=== PATIENT | female | born 1965 | race Caucasian/White ===

== ENCOUNTER → 2020-06-08 15:49 | Outpatient (CLI) | payer BC, SELFPAY ==
--- NOTE | ~2020-06-08 | US_ITS ---
EXAMINATION: US thyroid DATE: 06/08/2020 16:12 INDICATION: Nontoxic single thyroid nodule. TECHNIQUE: Multiple ultrasound images of the thyroid were obtained. COMPARISON: None. FINDINGS: The right thyroid lobe measures 5.5 x 3.0 x 2.3 cm. The left thyroid lobe measures 6.7 x 2.0 x 2.2 c m. The thyroid is diffusely hypoechoic with heterogeneous echogenicity. No discrete nodule. Vascular ity is normal. IMPRESSION: 1. Heterogeneous thyroid, likely chronic lymphocytic (Jessica) thyroiditis. Reviewed, dictated and finalized at location A.
== END ==
PROVIDERS: Visit Provider Internal Medicine Endocrinology, Diabetes & Metabolism
DX: E04.1 Nontoxic single thyroid nodule (principal)
CPT/HCPCS: 76536

== ENCOUNTER 2020-07-16 08:20 | Outpatient (CLI) | payer BC, SELFPAY ==
--- NOTE | ~2020-07-16 | US_ITS ---
EXAMINATION: US retroperitoneal duplex ltd DATE: 07/16/2020 10:25 INDICATION: Essential hypertension TECHNIQUE: Multiple grayscale, color Doppler, and pulsed Doppler images of the kidneys and renal antonino arti were obtained. COMPARISON: None. FINDINGS: The aorta peak systolic velocity is 43 cm/s. The right renal artery peak systolic velocity is 62 cm/s in the proximal segment, 74 cm/s in the mid segment, and 114 cm/s in the distal segment. The left re nal artery peak systolic velocity is 82 cm/s in the proximal segment, 69 cm/s in the mid segment, and 64 cm/s in the distal segment. IMPRESSION: 1. No Doppler evidence of renal artery stenosis. Reviewed, dictated and finalized at location A.
== END 2020-07-16 08:21 | disposition home or self-care (01) ==
PROVIDERS: PCP Family Medicine; Visit Provider Internal Medicine Endocrinology, Diabetes & Metabolism
DX: I10 Essential (primary) hypertension (principal)
CPT/HCPCS: 93976

== ENCOUNTER 2021-03-06 11:38 | Emergency (ER) | payer BC, SELFPAY ==
--- NOTE | ~2021-03-06 | XR_ITS ---
EXAMINATION: 1. XR forearm LT 2V 2. XR elbow LT min 3V DATE: 03/06/2021 12:54 INDICATION: Left forearm and elbow injury. TECHNIQUE: 2 views of left forearm on 3 radiographs and 4 views of left elbow were obtained. COMPARISON: None. FINDINGS: LEFT ELBOW: There is a comminuted fracture of lateral aspect of distal humerus. The main distal fract ure fragment involving the capitellum demonstrates anterior and proximal displacement and rotation an d is no longer normally aligned with the radial head. There is mild elbow joint osteoarthritis. There is an elbow joint effusion. LEFT FOREARM: Again seen is the comminuted fracture of distal humerus. There is mild osteoarthritis o f first carpometacarpal joint. IMPRESSION: 1. Comminuted fracture of distal humerus. 2. Elbow joint effusion. Reviewed, dictated and finalized at location A. IMPRESSION: 1. Comminuted fracture of distal humerus. 2. Elbow joint effusion.
[2021-03-06 11:57] VITALS: BP 141/77; PULSE 62; RESP 18; TEMP 36.5; O2SAT 97
[2021-03-06] MEDS: HYDROmorphone HCL INJ (*CRX) 1 MG/ML SYR IV PUSH (12:26)
--- NOTE | 2021-03-06 13:15 | ED.UPPEXIN ---
HPI - Extremity Injury (Upper) General Chief Complaint: Extremity Injury, Upper Stated Complaint: left arm pain Time Seen by Provider: 03/06/21 12:17 Source: patient Mode of arrival: ambulatory Limitations: no limitations History of Present Illness HPI narrative: Patient is a 55-year-old female complaining of left upper extremity pain, left elbow and forearm, after she tripped and fell at a parking garage prior to arrival. Patient states her pain is a 10 out of 10, dull, aching, nonradiating. Patient denies any head, neck, chest, back, hip or any other extremity pain/injury. Patient was able to stand up and ambulate after the fall. Related Data Home Medications Medication Instructions Recorded Confirmed levothyroxine 150 mcg tablet 150 mcg PO DAILY 11/04/19 01/31/21 Allergies Allergy/AdvReac Type Severity Reaction Status Date / Time No Known Allergies Allergy Mild Verified 01/31/21 13:17 Review of Systems Review of Systems: All systems reviewed & are unremarkable except as noted in HPI and below Constitutional: Constitutional: Denies body ache(s), Denies chills, Denies excessive sweating, Denies fatigue, Denies fever(s), Denies headache(s), Denies lethargy, Denies malaise, Denies weakness and Denies weight loss Eyes: Eyes: Denies blurry vision, Denies change in vision and Denies loss of vision ENT: Denies dizziness, Denies ear discharge, Denies headache(s), Denies lip swelling, Denies epistaxis, Denies nasal congestion, Denies neck pain, Denies throat swelling and Denies tongue swelling Cardiovascular: Cardiovascular: Denies chest pain, Denies chest pain at rest, Denies chest pain with activity, Denies diaphoresis, Denies rapid heart rate, Denies edema, Denies irregular heart rhythm, Denies lightheadedness, Denies palpitations, Denies dyspnea and Denies dyspnea on exertion Respiratory: Respiratory: Denies chest congestion, Denies cough, Denies hemoptysis, Denies dyspnea and Denies dyspnea on exertion Gastrointestinal: Gastrointestinal: Denies abdominal pain, Denies melena, Denies hematochezia, Denies diarrhea, Denies nausea, Denies vomiting and Denies hematemesis Musculoskeletal: Musculoskeletal: Denies abnormal gait, Denies neck pain and Denies numbness Neurologic: Denies Abnormal speech present, Denies abnormal gait, Denies confusion, Denies dizziness, Denies headache(s), Denies focal weakness, Denies loss of vision, Denies numbness, Denies Other visual disturbances, Denies Sensory deficit (Neuro) and Denies weakness Psychiatric: Psychiatric: Denies confusion, Denies depression, Denies auditory hallucinations, Denies homicidal ideation and Denies suicidal ideation Endocrine: Endocrine: Denies cold intolerance, Denies excessive sweating, Denies fatigue, Denies heat intolerance and Denies palpitations Hematologic/Lymphatic: Hematologic/Lymphatic: Denies easy bleeding and Denies easy bruising Allergic/Immunologic: Allergic/Immunologic: Denies lip swelling, Denies throat swelling and Denies tongue swelling PMFSH Past Medical History Medical History (Updated 03/06/21 @ 14:36 by Mikie Schneider MD) Anxiety Essential hypertension Hypothyroid Lupus Moderate single current episode of major depressive disorder Obstructive sleep apnea syndrome Surgical History Surgical History History of cholecystectomy [place] teeth removed Family History Family History Mother Hypertension Diabetes mellitus Father Hypertension Diabetes mellitus Social History Social History Smoking status: Never smoker Second hand tobacco smoke exposure: No Alcohol intake: never Substance use: former Substance use type: marijuana Gender identity (if verbalized by the patient): Female Exam Const: General: cooperative, healthy appearing, comfortable, no ac
[2021-03-06 13:19] VITALS: BP 136/77; PULSE 64; RESP 14; O2SAT 95
[2021-03-06 14:10] VITALS: BP 152/80; PULSE 64; RESP 15; O2SAT 98
[2021-03-06] MEDS: HYDROcodone/acetaminophen (*CRX) 7.5-325 MG TABLET 1 TAB PO (14:57)
[2021-03-06] MEDS: TETANUS,DIPHTHERIA,AC PERTUSSIS ADULT (0.5 ML) BOOSTRIX IM (15:15)
[2021-03-06 15:17] VITALS: BP 144/87; PULSE 87; RESP 15; O2SAT 97
== END 2021-03-06 15:19 | disposition home or self-care (01) ==
PROVIDERS: Emergency Provider Emergency Medicine; PCP Family Medicine
DX: S42.492A Other displaced fracture of lower end of left humerus, initial encounter for closed fracture (principal); Z23 Encounter for immunization; I10 Essential (primary) hypertension; E03.9 Hypothyroidism, unspecified; G47.33 Obstructive sleep apnea (adult) (pediatric); W01.0XXA Fall on same level from slipping, tripping and stumbling without subsequent striking against object, initial encounter
CPT/HCPCS: 29105; 73080; 73090; 90471; 90715; 96372; 99284; A4565; A9270; J1170

== ENCOUNTER 2021-09-29 16:12 | Outpatient (CLI) | payer BC, SELFPAY ==
--- NOTE | ~2021-09-29 | DEXA_ITS ---
Bone Density Report Name: JARED ALFARO Age: 56 Sex: Female Ethnicity: White Date of : 1965 Indication: postmenopausal; prior fracture; Referring Provider: GEOVANY MCKEON Study: Bone densitometry was performed. Exam Date: September 29, 2021 Accession number: [id number] Bone Density: Region BMD T-score Z-score Classification AP Spine (L1-L4) 1.225 1.6 2.8 Normal Femoral Neck (Left) 0.790 -0.5 0.6 Normal Total Hip (Left) 1.023 0.7 1.4 Normal Total Hip Bilateral Avg 1.010 0.6 1.3 Normal Femoral Neck (Right) 0.811 -0.3 0.8 Normal Total Hip (Right) 0.995 0.4 1.2 Normal World Health Organization criteria for BMD impression classify patients as: Normal (T-score at or above -1.0), Osteopenia (T-score between -1.0 and -2.5), or Osteoporosis (T-score at or below -2.5). 10-year Fracture Risk: FRAX not reported because: All T-scores for Spine Total, Hip Total, Femoral Neck at or above -1.0 Clinical Information Provided by Patient: Has had a low trauma fracture Has used the following medications: Vitamin D, Calcium Patient maximum height was 70 Menopause Age: 50 No regular weight bearing exercise Does not regularly consume dairy products Drinks caffeinated beverages Onset of menses at age 13 Number of children 0 Impression: The patient has normal bone mass. The patient has risk factors, including: previous fracture. Discussion: BONE DENSITY IS ABOVE THE MINIMUM DESIRABLE LEVEL AT ALL SKELETAL SITES TESTED. This patient?s bone mineral density is above the minimum desirable level (T-score -1.0 or better) at all sites measured. The patient should follow a healthful lifestyle (good nutrition with adequate calcium and vitamin D, and appropriate weight-bearing exercise). Follow-Up: Consider repeating this study in 5 years or sooner if there is some new clinical indication. Reported by: [facility] on 09/29/2021 4:38:00 PM. Reviewed, dictated and finalized at location ATanisha MARCIAL
--- NOTE | ~2021-09-29 | MM_ITS ---
EXAMINATION: MM screening william BI w stefano HISTORY: Screening TECHNIQUE: Craniocaudal and mediolateral oblique 3-D tomosynthesis images were obtained and synthetic 2-D images were generated. CAD analysis was submitted and interpreted. COMPARISON: Comparison to multiple prior studies sequentially, with oldest reviewed study dated 06/22. BREAST PARENCHYMAL COMPOSITION: The breasts are almost entirely fatty. FINDINGS: There is no evidence of suspicious mass, calcification, or architectural distortion to sugg est malignancy in either breast. There has been no suspicious interval change. IMPRESSION: 1. No mammographic evidence of malignancy. 2. Recommend routine screening mammography in one year. BI-RADS Category 1: Negative Reviewed, dictated and finalized at location A. OR COMMISSIONER
== END 2021-09-29 16:13 | disposition home or self-care (01) ==
LOC: ANHIMG 16:14
PROVIDERS: PCP Family Medicine; Visit Provider Obstetrics & Gynecology
DX: Z12.31 Encounter for screening mammogram for malignant neoplasm of breast (principal); Z13.820 Encounter for screening for osteoporosis; Z78.0 Asymptomatic menopausal state
CPT/HCPCS: 77063; 77067; 77080

== ENCOUNTER 2021-11-25 03:28 | Day surgery (SDC) | payer BC, SELFPAY ==
[2021-11-11 13:57] VITALS: BMI 45.2
[2021-11-25 08:40] LABS: Glucose Point of Care 166 mg/dl (65-105)
[2021-11-25 08:41] VITALS: BP 142/95; PULSE 71; RESP 21; TEMP 36.1; O2SAT 96
[2021-11-25] MEDS: LACTATED RINGERS 1,000 ML 150 ML IV CONT (08:53)
--- NOTE | 2021-11-25 08:55 | WPDANESEPPF ---
Anes - Initial Pre Proc Eval Procedure: Operation Date: 11/25/21 09:30 Proposed Procedures p Screening Colonoscopy - Isaac Donovan MD Date/Time: 11/25/21 08:55 Surgeon: Isaac Donovan MD Pre Op Diagnosis: neoplasm screening Patient Data Age: 56 Gender: F Height: 1.78 m Weight: 144 kg Last Vital Signs Temp 36.1 C L 11/25/21 08:41 Pulse 71 11/25/21 08:41 Resp 21 H 11/25/21 08:41 BP 142/95 H 11/25/21 08:41 Pulse Ox 96 11/25/21 08:41 Allergies Allergy/AdvReac Type Severity Reaction Status Date / Time No Known Allergies Allergy Mild Verified 11/25/21 08:45 Home Medications Medication Instructions Recorded Confirmed Type levothyroxine 150 mcg tablet 150 mcg PO DAILY 11/04/19 11/25/21 History alprazolam 0.25 mg tablet 0.25 mg PO TID PRN #60 tablet 03/31/20 11/25/21 Rx lisinopril 10 See Rx Instructions .ROUTE 07/10/21 11/25/21 Rx mg-hydrochlorothiazide 12.5 mg .COMPLEX #90 tablet tablet gabapentin 300 mg capsule 600 mg PO DAILY #180 cap 07/17/21 11/25/21 Rx diclofenac sodium 50 mg See Rx Instructions .ROUTE 07/28/21 11/25/21 Rx tablet,delayed release .COMPLEX #180 tablet metformin 500 mg tablet 500 mg PO BID #180 tablet 08/25/21 11/25/21 Rx calcium carbonate 600 mg calcium 600 mg PO BID 09/27/21 11/25/21 History (1,500 mg) tablet cholecalciferol (vitamin D3) 50 50 mcg PO DAILY 09/27/21 11/25/21 History mcg (2,000 unit) capsule jpqdovpk-xcp-ypcvh ac 400 1 tablet PO DAILY 09/27/21 11/25/21 History mcg-calcium carb 500 mg-vit K1 20 mcg tablet venlafaxine 37.5 mg 75 mg PO DAILY #180 cap 10/21/21 11/25/21 Rx capsule,extended release 24 hr semaglutide [Ozempic] 0.5 mg SUBCUT WEEKLY 11/11/21 11/25/21 History Laboratory Tests 11/25/21 08:35 POC Capillary Glucose 166 mg/dl H mg/dl (65-105) Patient hx anesthesia problems: none Family hx anesthesia problems: none Results Review: All pre-operative results and documents have been reviewed as part of the pre-operative evaluation. [facility] Past Medical History Medical History Anxiety Essential hypertension Hypothyroid Lupus Moderate single current episode of major depressive disorder Obstructive sleep apnea syndrome Surgical History Surgical History History of cholecystectomy [place] teeth removed Family History Family History Mother Hypertension Diabetes mellitus Lung cancer Father Hypertension Diabetes mellitus Sibling Colorectal cancer, stage III Social History Social History Smoking status: Never smoker Second hand tobacco smoke exposure: No Alcohol intake: never Alcohol use details: rarely Substance use: former Substance use type: marijuana Living arrangements: alone Gender identity (if verbalized by the patient): Female Spiritual care concerns: No Anes - Eval Final PreProcedure Day of Procedure 11/25/21 08:55 Patient weight: morbidly obese Heart: regular rate and rhythm Lungs: clear to auscultation Airway: Mallampati scale class II Neurological: alert and oriented Last oral intake: >/= 8 hours ASA classification: III Emergent: no Anesthetic plan: proceed Anesthesia type and monitoring: general GIVS and standard monitoring Results Review: All pre-operative results and documents have been reviewed as part of the pre-operative evaluation. Informed Consent: The patient's anesthetic plan and its attendant risks and benefits were discussed with the patient/family/POA. Questions were solicited and answers provided to the satisfaction of the patient/family/POA.
--- NOTE | 2021-11-25 09:06 | PM.HPGS ---
History of Present Illness History of Present Illness Consent: Risks, benefits, and alternatives have been discussed and questions answered. Patient agrees to proceed with procedure. Chief complaint: neoplasm screening Narrative: Lindsey Doherty is a 56 year old female here for first colonoscopy, sister just diagnosed with colon cancer Review of Systems Constitutional: Constitutional: Denies headache(s) and Denies weakness Eyes: Eyes: Denies blurry vision ENT: Reports Normal hearing present, Denies headache(s) and Denies neck pain Cardiovascular: Cardiovascular: Denies chest pain and Denies dyspnea Respiratory: Respiratory: Denies dyspnea Gastrointestinal: Gastrointestinal: Reports no additional gastrointestinal complaints Genitourinary: Genitourinary: Denies dysuria Musculoskeletal: Musculoskeletal: Denies neck pain Integumentary/Breasts: Skin/Breast: Denies dry skin Neurologic: Reports Normal hearing present, Denies headache(s) and Denies weakness Psychiatric: Psychiatric: Denies anxiety Endocrine: Endocrine: Denies change in body appearance Hematologic/Lymphatic: Hematologic/Lymphatic: Denies easy bleeding Allergic/Immunologic: Allergic/Immunologic: Denies urticaria PMFSH Past Medical History Medical History (Updated 11/25/21 @ 09:07 by Isaac Donovan MD) Anxiety Essential hypertension Family history of colon cancer Hypothyroid Lupus Moderate single current episode of major depressive disorder Obstructive sleep apnea syndrome Surgical History Surgical History History of cholecystectomy [place] teeth removed Family History Family History Mother Hypertension Diabetes mellitus Lung cancer Father Hypertension Diabetes mellitus Sibling Colorectal cancer, stage III Social History Social History Smoking status: Never smoker Second hand tobacco smoke exposure: No Alcohol intake: never Alcohol use details: rarely Substance use: former Substance use type: marijuana Living arrangements: alone Gender identity (if verbalized by the patient): Female Spiritual care concerns: No Meds Home Medications and Allergies Home Medications Medication Instructions Recorded Confirmed Type levothyroxine 150 mcg tablet 150 mcg PO DAILY 11/04/19 11/25/21 History alprazolam 0.25 mg tablet 0.25 mg PO TID PRN #60 tablet 03/31/20 11/25/21 Rx lisinopril 10 See Rx Instructions .ROUTE 07/10/21 11/25/21 Rx mg-hydrochlorothiazide 12.5 mg .COMPLEX #90 tablet tablet gabapentin 300 mg capsule 600 mg PO DAILY #180 cap 07/17/21 11/25/21 Rx diclofenac sodium 50 mg See Rx Instructions .ROUTE 07/28/21 11/25/21 Rx tablet,delayed release .COMPLEX #180 tablet metformin 500 mg tablet 500 mg PO BID #180 tablet 08/25/21 11/25/21 Rx calcium carbonate 600 mg calcium 600 mg PO BID 09/27/21 11/25/21 History (1,500 mg) tablet cholecalciferol (vitamin D3) 50 50 mcg PO DAILY 09/27/21 11/25/21 History mcg (2,000 unit) capsule awplnrcs-jxu-csvar ac 400 1 tablet PO DAILY 09/27/21 11/25/21 History mcg-calcium carb 500 mg-vit K1 20 mcg tablet venlafaxine 37.5 mg 75 mg PO DAILY #180 cap 10/21/21 11/25/21 Rx capsule,extended release 24 hr semaglutide [Ozempic] 0.5 mg SUBCUT WEEKLY 11/11/21 11/25/21 History Allergies Allergy/AdvReac Type Severity Reaction Status Date / Time No Known Allergies Allergy Mild Verified 11/25/21 08:45 Vital Signs Vital Signs - 24 hr 11/25/21 08:41 Temperature 97 F L Pulse Rate 71 Respiratory Rate 21 H Blood Pressure 142/95 H Pulse Oximetry 96 Exam Const: General: comfortable and no acute distress HENMT: General nose exam: Normal nares present Eyes: General: appearance normal, both eyes and all related structures Neck: Neck: no JVD Resp:
[2021-11-25 09:39] VITALS: BP 132/77; PULSE 60; RESP 18; O2SAT 100
[2021-11-25 09:49] VITALS: BP 130/75; PULSE 59; RESP 18; O2SAT 98
[2021-11-25 09:55] VITALS: BP 132/68; PULSE 58; RESP 18; O2SAT 99
== END 2021-11-25 10:15 | disposition home or self-care (01) ==
PROVIDERS: PCP Family Medicine; Visit Provider Internal Medicine Gastroenterology
PROC: 0DJD8ZZ Inspection of Lower Intestinal Tract, Via Natural or Artificial Opening Endoscopic (ICD-10-PCS; CPT 45378; principal; 2021-11-25 09:30)
DX: Z12.11 Encounter for screening for malignant neoplasm of colon (principal); Z80.0 Family history of malignant neoplasm of digestive organs; D12.3 Benign neoplasm of transverse colon; K63.5 Polyp of colon; K64.8 Other hemorrhoids; F41.9 Anxiety disorder, unspecified; I10 Essential (primary) hypertension; E03.9 Hypothyroidism, unspecified; M32.9 Systemic lupus erythematosus, unspecified; F32.9 Major depressive disorder, single episode, unspecified; G47.33 Obstructive sleep apnea (adult) (pediatric); Z90.49 Acquired absence of other specified parts of digestive tract; F12.90 Cannabis use, unspecified, uncomplicated; Z79.84 Long term (current) use of oral hypoglycemic drugs; E66.01 Morbid (severe) obesity due to excess calories; Z68.42 Body mass index [BMI] 45.0-49.9, adult
CPT/HCPCS: 45385; 45380; 82948; 88305; J2001; J2704; J7120

== ENCOUNTER 2022-01-18 14:30 | Outpatient (RCR) | payer BC, SELFPAY ==
[2021-10-25 10:43] VITALS: BMI 46.5
[2021-10-25 10:59] VITALS: BMI 46.5
== END 2022-01-23 12:24 | disposition home or self-care (01) ==
LOC: ANHDMC 14:30
PROVIDERS: PCP Family Medicine; Visit Provider Internal Medicine Endocrinology, Diabetes & Metabolism
DX: E11.65 Type 2 diabetes mellitus with hyperglycemia (principal); Z71.3 Dietary counseling and surveillance; Z71.89 Other specified counseling
CPT/HCPCS: 97802; G0108; G0109

== ENCOUNTER 2022-01-25 14:25 | Outpatient (RCR) | payer BC, SELFPAY | END 2022-04-11 10:01 | disposition home or self-care (01) | LOC: ANHDMC 14:25 | PROVIDERS: PCP Family Medicine; Visit Provider Internal Medicine Endocrinology, Diabetes & Metabolism | DX: E11.65 Type 2 diabetes mellitus with hyperglycemia (principal); Z71.89 Other specified counseling | CPT/HCPCS: 99199; G0109 ==

== ENCOUNTER 2022-10-08 09:42 | Emergency (ER) | payer BC, SELFPAY ==
[2022-10-08 09:57] VITALS: BP 142/87; PULSE 83; RESP 16; TEMP 38.7; O2SAT 98
--- NOTE | 2022-10-08 10:11 | ED.GENADULT ---
HPI - General Adult General Chief complaint: Fever Stated complaint: Vomiting/Diarrhea/Fever Time Seen by Provider: 10/08/22 10:12 Source: patient, RN notes reviewed and old records reviewed Mode of arrival: ambulatory Limitations: no limitations History of Present Illness HPI narrative: 57-year-old female presents to the [facility] with fevers, generalized weakness, generalized body aches for 6 days. Reports at times incontinence of diarrhea. Denies chest pain or shortness of breath. States she has been extremely fatigued and weak. Has discoloration, redness, increased warmth to her back with discoloration of the buttock. Onset (ago): day(s) (6) Related Data Home Medications Medication Instructions Recorded Confirmed levothyroxine 150 mcg tablet 150 mcg PO DAILY 11/04/19 03/14/22 (Synthroid) calcium carbonate 600 mg calcium 600 mg PO BID 09/27/21 03/14/22 (1,500 mg) tablet (Calcium) cholecalciferol (vitamin D3) 50 50 mcg PO DAILY 09/27/21 03/14/22 mcg (2,000 unit) capsule iwfzhkgy-lzv-yfamv ac 400 1 tablet PO DAILY 09/27/21 03/14/22 mcg-calcium carb 500 mg-vit K1 20 mcg tablet (Women's 50 Plus Multivitamin) Allergies Allergy/AdvReac Type Severity Reaction Status Date / Time No Known Allergies Allergy Mild Verified 10/08/22 10:17 Review of Systems Review of Systems: All systems reviewed & are unremarkable except as noted in HPI and below Constitutional: Constitutional: Reports as per HPI, Reports body ache(s), Reports fatigue, Reports fever(s) and Reports weakness Eyes: Eyes: Reports no additional eye complaints ENT: Reports system reviewed and no additional complaints, except as documented Cardiovascular: Cardiovascular: Reports no additional cardiovascular complaints, Denies chest pain and Denies dyspnea Respiratory: Respiratory: Reports no additional respiratory complaints, Denies chest congestion, Denies cough and Denies dyspnea Gastrointestinal: Gastrointestinal: Reports as per HPI, Denies abdominal pain, Reports diarrhea, Reports nausea and Reports vomiting Musculoskeletal: Musculoskeletal: Reports as per HPI and Reports muscle cramps (generalized weakness) Integumentary/Breasts: Skin/Breast: Reports as per HPI and Reports erythema Neurologic: Reports system reviewed and no additional complaints, except as documented Psychiatric: Psychiatric: Reports no additional psychiatric complaints Allergic/Immunologic: Allergic/Immunologic: Reports no additional allergic/immunologic complaints PMFSH Past Medical History Medical History Anxiety Essential hypertension Family history of colon cancer Hypothyroid Lupus Moderate single current episode of major depressive disorder Obstructive sleep apnea syndrome Type 2 diabetes mellitus Surgical History Surgical History History of cholecystectomy Hx of elbow surgery [place] teeth removed Family History Family History Mother Hypertension Diabetes mellitus Lung cancer Father Hypertension Diabetes mellitus Sibling Colorectal cancer, stage III Social History Social History Smoking status: Never smoker Second hand tobacco smoke exposure: No Alcohol intake: never Alcohol use details: rarely Substance use: former Substance use type: marijuana Gender identity (if verbalized by the patient): Female Spiritual care concerns: No Comments At the time of my signature, I reviewed and agree with the nursing past medical, surgical, social, and family history. There is no relevant family history pertinent to the patient complaint. Exam Const: General: cooperative, no acute distress, well developed, alert, ill appearing acutely, uncomfortable, well nourished and obese Nutritional Appearance: wel
== END 2022-10-08 10:29 | disposition short-term general hospital (02) ==
PROVIDERS: Emergency Provider Nurse Practitioner; PCP Family Medicine
DX: L03.312 Cellulitis of back [any part except buttock and flank] (principal); R53.1 Weakness; I10 Essential (primary) hypertension; E03.9 Hypothyroidism, unspecified; E11.9 Type 2 diabetes mellitus without complications
CPT/HCPCS: 81003; 99212; G0463

== ENCOUNTER 2022-10-08 10:44 | Observation (INO) | payer BC, SELFPAY ==
--- NOTE | ~2022-10-08 | CT_ITS ---
EXAMINATION: CT chest abdomen pelvis w con DATE: 10/08/2022 14:43 INDICATION: Diffuse Cellulitis From neck to hips. . TECHNIQUE: Computed tomography (CT) of the chest, abdomen, and pelvis was performed with 100 mL Omnip aque-350 intravenous contrast. Automated exposure control and iterative reconstruction technique were employed. The dose-length product was 1996.86 mGy-cm. COMPARISON: 11/22/2017 FINDINGS: Thoracic aorta: No significant dilation or calcification. Lung parenchyma and airways: Minimal dependent atelectasis. Thoracic inlet, axillae and chest wall: No thyroid or soft tissue mass. No axillary lymphadenopathy. Mediastinum: No mass or lymphadenopathy. Heart and pericardium: Normal heart size. No pericardial effusion. Coronary artery calcifications: Absent. Pleura: No effusion or mass. Thoracic bones: No acute osseous finding in the chest. ABDOMEN/PELVIS: Liver: 6 mm right lobe hypodensity, too small to characterize but most likely represents a cyst. Hete rogeneous liver parenchyma. Diffuse fatty infiltration. Hepatomegaly. Biliary/Gallbladder: Gallbladder is absent. No bile duct dilation. Pancreas: No mass or duct dilation. Spleen: Enlarged. Adrenals:No mass. Kidneys: Mild cortical thinning. Simple right lower pole cyst. No suspicious mass, stone, or hydronep hrosis. GI tract: Mild distal esophageal and gastric wall edema. Mild mucosal hyperemia and surrounding infla mmatory change at the first portion of the duodenum. No small or large bowel dilation. Normal appendi x. Mesentery/Peritoneum: Trace mesenteric edema and fluid no mass or free air. Prominent upper abdominal lymph nodes. Retroperitoneum: No mass Pelvis: Small volume free pelvic fluid. Bladder wall thickening. The remaining pelvic organs are with in normal limits Soft Tissues: Mild flank and bilateral hips subcutaneous edema. Dermal thickening of the skin of the back extending from the superior most images down to the level of the hips. Abdominopelvic bones: No acute osseous finding in the abdomen/pelvis. IMPRESSION: Diffuse dermal thickening of the back, likely related to the given history of cellulitis. No dermal o r subcutaneous abscess detected. Esophagitis/gastritis. Duodenitis. Cirrhosis with portal hypertensio n. Bladder wall thickening, which may be secondary to cystitis or incomplete distention, correlate wi th urinalysis. Reviewed, dictated and finalized at location K. [employer] IMPRESSION: Diffuse dermal thickening of the back, likely related to the given history of c ellulitis. No dermal or subcutaneous abscess detected. Esophagitis/gastritis. D uodenitis. Cirrhosis with portal hypertension. Bladder wall thickening, which m ay be secondary to cystitis or incomplete distention, correlate with urinalysis .
[2022-10-08 10:58] VITALS: BP 130/80; PULSE 75; RESP 20; TEMP 37.4; O2SAT 96
[2022-10-08 11:49] LABS: Influenza A QL RT-PCR Negative (Negative); Influenza B QL RT-PCR Negative (Negative); RSV RNA, RT-PCR Negative (Negative); SARS-CoV-2 RNA PCR Negative
[2022-10-08 12:08] VITALS: BP 145/72; PULSE 68; RESP 27; TEMP 37.8; O2SAT 100
--- NOTE | 2022-10-08 12:22 | ED.GENADULT ---
HPI - General Adult General Chief complaint: Upper Respiratory Infection Stated complaint: weakness Time Seen by Provider: 10/08/22 11:45 History of Present Illness HPI narrative: This is a 57-year-old female presenting ED with chief complaint of fever. Patient says that she has had a fever daily for the last 7 days. Has been as high as 103.6. She has also had fatigue, 3-4 episodes of diarrhea per day and some isolated vomiting. She denies sick contacts at home. She is vaccinated against COVID but not flu. She denies chest pain, difficulty breathing or abdominal pain. She went to an urgent care earlier today and was found to have diffuse cellulitis covering her upper hips all the way up to her neck. She is then sent to the ER for further evaluation. Related Data Home Medications Medication Instructions Recorded Confirmed levothyroxine 150 mcg tablet 150 mcg PO DAILY 11/04/19 03/14/22 (Synthroid) calcium carbonate 600 mg calcium 600 mg PO BID 09/27/21 03/14/22 (1,500 mg) tablet (Calcium) cholecalciferol (vitamin D3) 50 50 mcg PO DAILY 09/27/21 03/14/22 mcg (2,000 unit) capsule jfqqardi-zla-fuxdl ac 400 1 tablet PO DAILY 09/27/21 03/14/22 mcg-calcium carb 500 mg-vit K1 20 mcg tablet (Women's 50 Plus Multivitamin) Allergies Allergy/AdvReac Type Severity Reaction Status Date / Time No Known Allergies Allergy Mild Verified 10/08/22 10:17 Review of Systems Review of Systems: All systems reviewed & are unremarkable except as noted in HPI and below PMFSH Past Medical History Medical History Anxiety Essential hypertension Family history of colon cancer Hypothyroid Lupus Moderate single current episode of major depressive disorder Obstructive sleep apnea syndrome Type 2 diabetes mellitus Surgical History Surgical History History of cholecystectomy Hx of elbow surgery [place] teeth removed Family History Family History Mother Hypertension Diabetes mellitus Lung cancer Father Hypertension Diabetes mellitus Sibling Colorectal cancer, stage III Social History Social History Smoking status: Never smoker Second hand tobacco smoke exposure: No Alcohol intake: never Alcohol use details: rarely Substance use: former Substance use type: marijuana Gender identity (if verbalized by the patient): Female Spiritual care concerns: No Exam Narrative: APPEARANCE: Patient appears uncomfortable Head: atraumatic. EYES: EOMI, NOSE: Atraumatic NECK: Trachea midline RESPIRATORY: No increased rate of breathing , clear to auscultation bilaterally CARDIOVASCULAR: RRR, ABDOMINAL: Non-distended MUSCULOSKELETAl: No obvious deformities NEURO: Alert. Moving 4/4 extremities SKIN:: patient has erythema over her upper thighs glutes and back with induration. No crepitus. there is some bruising over the hips bilaterally. PSYCHIATRIC: Normal affect Course Vital Signs Vital signs: Vital Signs Temperature 99.4 F 10/08/22 10:58 Pulse Rate 75 10/08/22 10:58 Respiratory Rate 20 10/08/22 10:58 Blood Pressure 130/80 10/08/22 10:58 Pulse Oximetry 96 10/08/22 10:58 Oxygen Delivery Room Air 10/08/22 10:58 Temperature 99.1 F 10/08/22 14:01 Pulse Rate 68 10/08/22 12:08 Respiratory Rate 27 H 10/08/22 12:08 Blood Pressure 145/72 H 10/08/22 12:08 Pulse Oximetry 100 10/08/22 12:08 Oxygen Delivery Room Air 10/08/22 10:58 Medical Decision Making [facility] Narrative Medical decision making narrative: this is a 57-year-old female presenting ED with chief complaint of fever and rash. Differential includes cellulitis, necrotizing soft tissue infection, viral exanthem. Patient will be started on 2 g Ancef, IV fluid resuscitation la
[2022-10-08] MEDS: ACETAMINOPHEN 500 MG TABLET 1000 MG PO (12:45)
[2022-10-08] MEDS: IBUPROFEN 400 MG TABLET 800 MG PO (12:46)
[2022-10-08] MEDS: SODIUM CHLORIDE 0.9% IV 2,000 ML 999 ML IV CONT (12:46)
[2022-10-08] MEDS: ceFAZolin 2 GM/D5W 50 ML 2 GM/50 ML BAG IVPB (12:46)
[2022-10-08 13:08] LABS: Basophils Absolute Auto 0.1 K/mm3 (0.0-0.1); Basophils Percent Auto 0.6 % (0.2-1.2); Eosinophils Percent Auto 0.1 % (0-4.4); Hematocrit 34.9 % (37.0-47.0); Hemoglobin 12.3 g/dL (12.0-15.0); Immature Granulocyte Percent A 1.9 % (0-0.5); Immature Platelet Fraction Pct 9.5 % (0.9-11.2); Lymphocytes Absolute Auto 1.45 K/mm3 (0.9-3.2); Lymphocytes Percent Auto 13.7 % (18.3-44.2); Mean Corpuscular HGB Conc 35.2 g/dl (32-36); Mean Corpuscular Hemoglobin 32.5 pg (26-34); Mean Corpuscular Volume 92.1 fl (80-100); Monocytes Absolute Auto 1.1 K/mm3 (0.1-0.6); Monocytes Percent Auto 10.3 % (2.6-8.5); Neutrophils Absolute Auto 7.7 K/mm3 (1.3-6.7); Neutrophils Percent Auto 73.4 % (45.5-73.1); Platelet Count Result 105 k/mm3 (150-375); Red Blood Count 3.79 M/mm3 (4.2-5.4); White Blood Count 10.6 K/mm3 (4.5-10.0)
[2022-10-08 13:38] VITALS: TEMP 37.6
[2022-10-08 13:42] LABS: Alanine Aminotransferase 25 U/L (6-35); Albumin Level 3.4 g/dL (3.5-5.1); Alkaline Phosphatase 82 U/L (38-126); Anion Gap 4 mmol/L (8-16); Aspartate Amino Transferase 34 U/L (14-36); Bilirubin,Total 1.3 mg/dL (0.2-1.3); Blood Urea Nitrogen 6 mg/dL (7-17); Calcium 7.8 mg/dL (8.4-10.2); Carbon Dioxide 26 mmol/L (22-30); Chloride 92 mmol/L (98-107); Creatine Kinase 41 U/L (30-135); Estimated CRCL calculation 115 ml/min; Estimated Glomerular Filt Rate > 60; Glucose 132 mg/dL (65-110); Magnesium 1.9 mg/dL (1.6-2.3); Potassium 3.6 mmol/L (3.4-5.0); Sodium 122 mmol/L (137-145)
[2022-10-08 13:53] LABS: Lactic Acid Reflex 1.7 mmol/L (0.7-2.0)
[2022-10-08 14:01] VITALS: TEMP 37.3
--- NOTE | 2022-10-08 16:33 | PC.NURSE ---
dinner reg food tray ordered
[2022-10-08 17:01] LABS: Add Urine Microscopic? YES; Appearance Urine Slightly Cloudy (Clear); Bilirubin Urine Negative (Negative); Blood Urine Negative (Negative); Color Urine Amber (Yellow); Glucose Urine UA Negative (Negative); Ketones Urine Negative (Negative); Leukocyte Esterase Ur Negative LEU/UL (Negative); Nitrate Urine Negative (Negative); Protein Urine Negative (Negative); Specific Grav Ur <= 1.005 (1.001-1.035); Urobilinogen Urine 0.2 mg/dL (<2.0)
[2022-10-08 17:12] LABS: Bacteria Urine Trace /hpf; Mucus Urine Rare /lpf; Squamous Epithelial Cell Urine Rare /hpf (Few)
[2022-10-08 17:19] VITALS: BP 128/73; PULSE 63; RESP 26; TEMP 37.2; O2SAT 100
--- NOTE | 2022-10-08 17:19 | ADMGEN ---
This patient, Lindsey Doherty, was admitted to [facility] Surg Room 306-02. Patient/family oriented to hospital policies and general routines including ID bracelet, bed and alarms, visiting hours, pain management, procedures, bathroom and other care routines, personal items, smoking policy, room service/diet, and visiting hours. Information on how to activate the Rapid Response Team has been discussed. Patient/Family are encouraged to report perceived risks to care and to ask questions if they do not understand what they are told or what they should do.
--- NOTE | 2022-10-08 21:47 | PM.IMHP ---
H&P: HPI History of Present Illness Date/Time: 10/08/22 21:47 Chief Complaint: upper respiratory infection Narrative: this is a 57-year-old female patient who was been complaining of having a fever for several days. The patient stated she was also urinating frequently. The patient has had body aches for couple days. She has also been very fatigued. She has been sleeping a lot. The patient stated that she was nauseated and had frequent diarrhea 3-4 days ago. She also has some vomiting as well. She has not had any sick contacts. She has been vaccinated against COVID and influenza. The patient did not notice the rash on her back but had started to itch on her back and noticed a rash on her thighs. The patient went to urgent care and was sent to the ER due to the severity of her cellulitis. She has a rash down the middle of her back and extends through flank area in both Thigh. Her white count was 10.6. Her sodium is 122. She was negative for influenza A/B RSV and COVID. Chest abdomen pelvis CT was read as the following Diffuse dermal thickening of the back, likely related to the given history of cellulitis. No dermal or subcutaneous abscess detected. Esophagitis/gastritis. Duodenitis. Cirrhosis with portal hypertension. Bladder wall thickening, which may be secondary to cystitis or incomplete distention, correlate with urinalysis. the patient was started on IV fluids, Motrin, Tylenol and Ancef. The patient is being admitted to observation status on the date of service of 10/08/2022. Review of Systems Review of Systems: See HPI All systems reviewed & are unremarkable except as noted in HPI and below Constitutional: Constitutional: Reports as per HPI and Reports no additional constitutional complaints Eyes: Eyes: Reports as per HPI and Reports no additional eye complaints ENT: Reports system reviewed and no additional complaints, except as documented and Reports Normal hearing present Cardiovascular: Cardiovascular: Reports no additional cardiovascular complaints Respiratory: Respiratory: Reports no additional respiratory complaints and Reports no additional respiratory complaints Gastrointestinal: Gastrointestinal: Reports as per HPI and Reports no additional gastrointestinal complaints Musculoskeletal: Musculoskeletal: Reports no additional musculoskeletal complaints Integumentary/Breasts: Skin/Breast: Reports system reviewed and no additional complaints, except as docu and Reports as per HPI Neurologic: Reports system reviewed and no additional complaints, except as documented, Reports as per HPI and Reports Normal hearing present Psychiatric: Psychiatric: Reports no additional psychiatric complaints and Reports as per HPI Endocrine: Endocrine: Reports no additional endocrine complaints Hematologic/Lymphatic: Hematologic/Lymphatic: Reports no additional hematologic/lymphatic complaints Allergic/Immunologic: Allergic/Immunologic: Reports no additional allergic/immunologic complaints [facility] Past Medical History Medical History (Updated 10/09/22 @ 00:43 by Nazia Asencio NP) Anxiety Diabetes Essential hypertension Family history of colon cancer Hypothyroid Lupus Moderate single current episode of major depressive disorder Obstructive sleep apnea syndrome Type 2 diabetes mellitus Surgical History Surgical History (Updated 10/09/22 @ 00:25 by Nazia Asencio NP) History of cholecystectomy History of ear surgery History of eye surgery Hx of elbow surgery S/P tonsillectomy and adenoidectomy [place] teeth removed Family History Family History Mother Hypertension Diabetes mellitus Lung cancer Father Hypertension Diabetes mellitus Sibling Colorectal cancer, stage III Social History Social History (Updated 10/09/22 @ 00:27 by Nazia Asencio NP) Social History: the patient lives home alone. she is single. she has no chil
[2022-10-08 22:00] VITALS: BP 110/57; PULSE 50; RESP 18; TEMP 35.8; O2SAT 98
[2022-10-09] MEDS: VENLAFAXINE HCL XR 75 MG CAP.ER.24H PO ×2 (00:53→09:13)
[2022-10-09] MEDS: GABAPENTIN 300 MG CAPSULE 600 MG PO ×2 (00:53→21:01)
[2022-10-09] MEDS: LEVOTHYROXINE SODIUM 150 MCG TABLET PO ×2 (00:53→05:49)
[2022-10-09] MEDS: diphenhydrAMINE HCl CAP 25 MG CAPSULE PO (00:58)
[2022-10-09 06:00] VITALS: BP 111/60; PULSE 56; RESP 17; TEMP 35.9; O2SAT 99
[2022-10-09 06:49] LABS: Basophils Percent Auto 0.6 % (0.2-1.2); Eosinophils Absolute Auto 0.1 K/mm3 (0-0.3); Eosinophils Percent Auto 0.8 % (0-4.4); Hematocrit 31.2 % (37.0-47.0); Hemoglobin 10.9 g/dL (12.0-15.0); Immature Granulocyte Absolute 0.16 K/mm3 (0.00-0.031); Immature Granulocyte Percent A 2.2 % (0-0.5); Immature Platelet Fraction Pct 9.2 % (0.9-11.2); Lymphocytes Absolute Auto 1.05 K/mm3 (0.9-3.2); Lymphocytes Percent Auto 14.5 % (18.3-44.2); Mean Corpuscular HGB Conc 34.9 g/dl (32-36); Mean Corpuscular Hemoglobin 31.9 pg (26-34); Mean Corpuscular Volume 91.2 fl (80-100); Mean Platelet Volume 11.4 fl (7.4-10.4); Monocytes Absolute Auto 0.7 K/mm3 (0.1-0.6); Monocytes Percent Auto 9.9 % (2.6-8.5); Neutrophils Absolute Auto 5.2 K/mm3 (1.3-6.7); Platelet Count Result 93 k/mm3 (150-375); Red Blood Count 3.42 M/mm3 (4.2-5.4); Red Cell Distribution Width 13.9 % (11.5-14.5); White Blood Count 7.3 K/mm3 (4.5-10.0)
[2022-10-09 06:53] LABS: Lactic Acid Reflex 1.1 mmol/L (0.7-2.0)
[2022-10-09 06:57] LABS: Alanine Aminotransferase 21 U/L (6-35); Albumin Level 2.8 g/dL (3.5-5.1); Alkaline Phosphatase 85 U/L (38-126); Anion Gap 5 mmol/L (8-16); Aspartate Amino Transferase 31 U/L (14-36); Bilirubin,Total 0.8 mg/dL (0.2-1.3); Blood Urea Nitrogen 7 mg/dL (7-17); Calcium 7.4 mg/dL (8.4-10.2); Carbon Dioxide 25 mmol/L (22-30); Chloride 99 mmol/L (98-107); Estimated CRCL calculation 133 ml/min; Estimated Glomerular Filt Rate > 60; Glucose 174 mg/dL (65-110); Potassium 3.4 mmol/L (3.4-5.0); Sodium 129 mmol/L (137-145)
[2022-10-09] MEDS: metroNIDAZOLE 500 MG/ISO 100ML 500 MG/100 ML BAG 100 MG IVPB ×2 (07:17→15:41)
[2022-10-09 07:45] LABS: Glucose Point of Care 162 mg/dl (65-105)
[2022-10-09 07:52] LABS: Hemoglobin A1C 5.6 % (<5.7)
[2022-10-09] MEDS: THERAPEUTIC MULTIVITAMINS/MINERALS TAB (*BKC) 1 TABLET PO (09:12)
[2022-10-09] MEDS: CALCIUM CARBONATE (OSCAL) 500 MG TABLET PO ×2 (09:12→17:35)
[2022-10-09] MEDS: CHOLECALCIFEROL 1,000 UNITS TABLET 2000 UNITS PO (09:14)
[2022-10-09 11:25] LABS: Free T4 Free Thyroxine Reflex 1.22 ng/dL (0.78-2.19)
[2022-10-09] MEDS: INSULIN ASPART (*BKC) 100 UNITS/ML SUB-Q (12:02)
[2022-10-09 12:06] LABS: Glucose Point of Care 208 mg/dl (65-105)
--- NOTE | 2022-10-09 12:23 | PM.IMPN ---
Progress Note: A&P Assessment and Plan (1) Cellulitis: Code(s): L03.90 - Cellulitis, unspecified Status: Acute Assessment and Plan: Diffuse dermal thickening of the back, likely related to the given history of cellulitis. No dermal or subcutaneous abscess detected. Esophagitis/gastritis. Duodenitis. Cirrhosis with portal hypertension. Bladder wall thickening, which may be secondary to cystitis or incomplete distention, correlate with urinalysis. As per diabetic cellulitis Stewardship the patient was started on cefepime, Flagyl and vancomycin. Tailor antibiotic to results of culture sensitivities. Benadryl for the itching (2) Obstructive sleep apnea syndrome: Code(s): G47.33 - Obstructive sleep apnea (adult) (pediatric) Status: Acute Assessment and Plan: CPAP per home settings. (3) Essential hypertension: Code(s): I10 - Essential (primary) hypertension Status: Acute Assessment and Plan: Hold lisinopril and hydrochlorothiazide. - her blood pressure is soft at this time and she has bradycardia. (4) Anxiety: Code(s): F41.9 - Anxiety disorder, unspecified Status: Acute Assessment and Plan: - continue with Xanax (5) Diabetes: Code(s): E11.9 - Type 2 diabetes mellitus without complications Status: Acute Assessment and Plan: holding metformin to prevent lactic acidosis. - Accu-Cheks AC and HS with sliding scale insulin and hypoglycemic protocol. -check A1c. (6) Hypothyroid: Code(s): E03.9 - Hypothyroidism, unspecified Status: Acute Assessment and Plan: -Check thyroid levels -continue levothyroxine. Subjective Date/time seen: 10/09/22 12:23 No new complaints tolerating antibiotics Exam Const: General: cooperative, healthy appearing, comfortable, no acute distress, well developed, alert, awake, Physically active and obese Nutritional Appearance: obese Orientation/consciousness: oriented to person, oriented to place, oriented to time and patient oriented x3 Limitations: no limitations HENMT: Head: normal to inspection, No palpable skull fracture present, normocephalic and atraumatic Ears: hearing grossly normal bilaterally and external ears normal Face/Nose/Sinus: Normal external nose present and Normal nares present Eyes: General: appearance normal, both eyes and all related structures Alignment and Position: alignment normal Periorbital: periorbital findings normal Eyelids: eyelids normal Sclera: sclerae normal Pupils: Equal, round and reactive pupils present EOM: EOMs intact bilaterally Neck: Neck: normal visual inspection, full ROM, no lymphadenopathy, trachea midline and supple Chest: Chest palpation & inspection: normal inspection of the chest Resp: Effort & Inspection: normal respiratory effort Auscultation: clear to auscultation bilaterally Cardio: Palpation: normal PMI Rate: bradycardic Rhythm: regular rhythm Heart sounds: S1 normal heart sound present and S2 normal heart sound present Peripheral pulses: Peripheral pulses 2+ throughout GI: Inspection: normal to inspection Auscultation: normal bowel sounds Rectal Exam: deferred Back/Spine/Pelvis: Cervical Spine: cervical ROM normal Skin: General skin exam: normal color and rashes (back) Lesions: no lesions Rashes: rashes noted (back) Trauma: no lacerations or abrasions Wounds: no wounds Hair: normal Nails: normal Other: the patient has a red streak between both shoulders and radiates all the way down her spine and radiates to the right and the left flank area. No open areas noted. Neuro: General: oriented to person, oriented to place, oriented to time and patient oriented x3 Cranial nerves: Yes Equal, round and reactive pupils present and Yes Normal hearing present Cognition (Neuro): normal cognition Speech: normal speech Gait exam (Neuro): Normal gait present Motor exam (neuro): 5/5 motor strength present throughou
[2022-10-09 14:00] VITALS: BP 130/46; PULSE 60; RESP 16; TEMP 36.8; O2SAT 97
[2022-10-09 16:59] LABS: Glucose Point of Care 193 mg/dl (65-105)
[2022-10-09 20:58] LABS: Glucose Point of Care 148 mg/dl (65-105)
[2022-10-09 21:54] VITALS: BP 100/48; PULSE 57; RESP 16; TEMP 36.4; O2SAT 96
[2022-10-10] MEDS: metroNIDAZOLE 500 MG/ISO 100ML 500 MG/100 ML BAG 100 MG IVPB ×2 (00:12→06:44)
[2022-10-10 02:39] LABS: Vancomycin Trough 15.7 ug/mL (10.0-20.0)
[2022-10-10 06:00] VITALS: BP 99/49; PULSE 53; RESP 16; TEMP 36.7; O2SAT 96
[2022-10-10] MEDS: LEVOTHYROXINE SODIUM 150 MCG TABLET PO (06:21)
[2022-10-10 08:03] LABS: Glucose Point of Care 146 mg/dl (65-105)
[2022-10-10] MEDS: CHOLECALCIFEROL 1,000 UNITS TABLET 2000 UNITS PO (09:12)
[2022-10-10] MEDS: THERAPEUTIC MULTIVITAMINS/MINERALS TAB (*BKC) 1 TABLET PO (09:12)
[2022-10-10] MEDS: CALCIUM CARBONATE (OSCAL) 500 MG TABLET PO (09:12)
[2022-10-10] MEDS: VENLAFAXINE HCL XR 75 MG CAP.ER.24H PO (09:12)
[2022-10-10 11:55] LABS: Glucose Point of Care 198 mg/dl (65-105)
--- NOTE | 2022-10-10 11:59 | PM.DS ---
DS: Admitting Diagnosis Discharge Date October 10, 2022 Admitting Diagnosis Cellulitis DS: Discharge Diagnosis Discharge Diagnosis (1) Cellulitis: Code(s): L03.90 - Cellulitis, unspecified Status: Acute Assessment and Plan: Diffuse dermal thickening of the back, likely related to the given history of cellulitis. No dermal or subcutaneous abscess detected. Esophagitis/gastritis. (2) Obstructive sleep apnea syndrome: Code(s): G47.33 - Obstructive sleep apnea (adult) (pediatric) Status: Acute Assessment and Plan: CPAP per home settings. (3) Essential hypertension: Code(s): I10 - Essential (primary) hypertension Status: Acute Assessment and Plan: Hold lisinopril and hydrochlorothiazide. - her blood pressure is soft at this time and she has bradycardia. (4) Anxiety: Code(s): F41.9 - Anxiety disorder, unspecified Status: Acute Assessment and Plan: - continue with Xanax (5) Diabetes: Code(s): E11.9 - Type 2 diabetes mellitus without complications Status: Acute Assessment and Plan: holding metformin to prevent lactic acidosis. - Accu-Cheks AC and HS with sliding scale insulin and hypoglycemic protocol. -check A1c. (6) Hypothyroid: Code(s): E03.9 - Hypothyroidism, unspecified Status: Acute Assessment and Plan: -Check thyroid levels -continue levothyroxine. DS: Summary Hospital Course Hospital Course: Patient admitted for cellulitis on her back. This was an extensive area. She was started on IV antibiotics did exceptionally well. Area of redness and erythema have improved dramatically. Should be sent home on Bactrim for an extended course due to the large area of her back. Follow-up primary care physician Time Spent with Patient Time attestation: Total time spent providing and/or coordinating discharge services: Exam Const: General: cooperative, healthy appearing, comfortable, no acute distress, well developed, alert, awake, Physically active and obese Nutritional Appearance: obese Orientation/consciousness: oriented to person, oriented to place, oriented to time and patient oriented x3 Limitations: no limitations HENMT: Head: normal to inspection, No palpable skull fracture present, normocephalic and atraumatic Ears: hearing grossly normal bilaterally and external ears normal Face/Nose/Sinus: Normal external nose present and Normal nares present Eyes: General: appearance normal, both eyes and all related structures Alignment and Position: alignment normal Periorbital: periorbital findings normal Eyelids: eyelids normal Sclera: sclerae normal Pupils: Equal, round and reactive pupils present EOM: EOMs intact bilaterally Neck: Neck: normal visual inspection, full ROM, no lymphadenopathy, trachea midline and supple Chest: Chest palpation & inspection: normal inspection of the chest Resp: Effort & Inspection: normal respiratory effort Auscultation: clear to auscultation bilaterally Cardio: Palpation: normal PMI Rate: bradycardic Rhythm: regular rhythm Heart sounds: S1 normal heart sound present and S2 normal heart sound present Peripheral pulses: Peripheral pulses 2+ throughout GI: Inspection: normal to inspection Auscultation: normal bowel sounds Rectal Exam: deferred Back/Spine/Pelvis: Cervical Spine: cervical ROM normal Skin: General skin exam: normal color and rashes (back) Lesions: no lesions Rashes: rashes noted (back) Trauma: no lacerations or abrasions Wounds: no wounds Hair: normal Nails: normal Other: the patient has a red streak between both shoulders and radiates all the way down her spine and radiates to the right and the left flank area. No open areas noted. Neuro: General: oriented to person, oriented to place, oriented to time and patient oriented x3 Cranial nerves: Yes Equal, round and reactive pupils present and Yes Normal hearing present Cognition (Neuro)
== END 2022-10-10 14:01 | disposition home or self-care (01) ==
LOC: ANHED 15:38 → ANH3MEDSUR 18:56
PROVIDERS: Nurse Practitioner; Admitting Provider Student in an Organized Health Care Education/Training Program; Emergency Provider Emergency Medicine; PCP Family Medicine; Visit Provider Chiropractor
DX: L03.312 Cellulitis of back [any part except buttock and flank] (principal); K20.90 Esophagitis, unspecified without bleeding; K29.70 Gastritis, unspecified, without bleeding; K74.60 Unspecified cirrhosis of liver; K76.6 Portal hypertension; R93.41 Abnormal radiologic findings on diagnostic imaging of renal pelvis, ureter, or bladder; I10 Essential (primary) hypertension; E03.9 Hypothyroidism, unspecified; M32.9 Systemic lupus erythematosus, unspecified; G47.33 Obstructive sleep apnea (adult) (pediatric); E11.9 Type 2 diabetes mellitus without complications; F32.1 Major depressive disorder, single episode, moderate; F41.9 Anxiety disorder, unspecified; Z79.84 Long term (current) use of oral hypoglycemic drugs; Z20.822 Contact with and (suspected) exposure to COVID-19
CPT/HCPCS: 36415; 71260; 74177; 80053; 80202; 81001; 82550; 82948; 83036; 83605; 83735; 84439; 84443; 84480; 85025; 85055; 87040; 87086; 87637; 96365; 96366; 96367; 96376; 99285; A9270; G0378; J0690; J0692; J1815; J3370; J7030; Q9967

== ENCOUNTER 2023-03-14 07:59 | Outpatient (CLI) | payer BC, SELFPAY ==
[2023-03-14 08:26] LABS: Basophils Percent Auto 1.3 % (0.2-1.2); Eosinophils Absolute Auto 0.2 K/mm3 (0-0.3); Eosinophils Percent Auto 5.3 % (0-4.4); Hematocrit 36.1 % (37.0-47.0); Hemoglobin 12.9 g/dL (12.0-15.0); Immature Granulocyte Absolute 0.01 K/mm3 (0.00-0.031); Immature Granulocyte Percent A 0.3 % (0-0.5); Lymphocytes Absolute Auto 0.96 K/mm3 (0.9-3.2); Lymphocytes Percent Auto 31.8 % (18.3-44.2); Mean Corpuscular HGB Conc 35.7 g/dl (32-36); Mean Corpuscular Hemoglobin 32.8 pg (26-34); Mean Corpuscular Volume 91.9 fl (80-100); Mean Platelet Volume 9.1 fl (7.4-10.4); Monocytes Absolute Auto 0.4 K/mm3 (0.1-0.6); Monocytes Percent Auto 12.3 % (2.6-8.5); Neutrophils Absolute Auto 1.5 K/mm3 (1.3-6.7); Platelet Count Result 64 k/mm3 (150-375); Red Blood Count 3.93 M/mm3 (4.2-5.4); Red Cell Distribution Width 13.8 % (11.5-14.5)
[2023-03-14 09:26] LABS: Iron 196 ug/dL (37-170)
[2023-03-14 09:30] LABS: Alanine Aminotransferase 47 U/L (6-35); Albumin Level 3.8 g/dL (3.5-5.1); Alkaline Phosphatase 154 U/L (38-126); Anion Gap 5 mmol/L (8-16); Aspartate Amino Transferase 66 U/L (14-36); Blood Urea Nitrogen 11 mg/dL (7-17); Calcium 8.9 mg/dL (8.4-10.2); Carbon Dioxide 31 mmol/L (22-30); Chloride 94 mmol/L (98-107); Estimated Glomerular Filt Rate > 60; Glucose 139 mg/dL (65-110); Potassium 4.3 mmol/L (3.4-5.0); Sodium 130 mmol/L (137-145)
[2023-03-14 09:35] LABS: Percent Iron Saturation 60 % (20-50)
[2023-03-14 10:38] LABS: Folic Acid 18.9 ng/mL (2.76->20)
[2023-03-22 07:56] LABS: Reference Lab Test Result Negative
== END 2023-03-14 08:00 | disposition home or self-care (01) ==
LOC: ANHLAB 08:00
PROVIDERS: PCP Family Medicine; Visit Provider Internal Medicine Hematology & Oncology
DX: D69.59 Other secondary thrombocytopenia (principal)
CPT/HCPCS: 36415; 80053; 82607; 82728; 82746; 83540; 83550; 85025; 86023

== ENCOUNTER 2023-03-21 16:33 | Outpatient (CLI) | payer BC, SELFPAY ==
--- NOTE | ~2023-03-21 | XR_ITS ---
EXAMINATION: CHEST-TWO VIEW 03/21/2023 INDICATION: Chronic shortness of breath PROCEDURE: 2 view chest COMPARISON: No prior studies for comparison. FINDINGS: The lungs are clear. The cardiomediastinal silhouette is within normal limits. There are no pleural effusions. There is no pneumothorax suspected. IMPRESSION: 1: NO ACUTE CARDIOPULMONARY DISEASE. Reviewed, dictated and finalized at location L.
--- NOTE | ~2023-03-21 | US_ITS ---
US abdomen complete EXAMINATION: US Abdomen Complete INDICATION: Thrombocytopenia PROCEDURE: Realtime High Resolution abdomen ultrasound. COMPARISON: No prior studies for comparison FINDINGS: Gallbladder surgically absent. Common bile duct measures 1 cm mm. Liver echotexture is coarse, heterogeneous with nodular liver surface, compatible with cirrhosis.. P ancreas within normal limits. Pancreatic tail is obscured by bowel gas. Spleen is enlarged measurin g 16.4 cm. Renal echotexture is within normal limits bilaterally without hydronephrosis, contour defo rming mass or renal stone. Right kidney measures 11.3 cm. Left kidney measures 9.5 cm. Visualized aspects of the aorta and IVC are within normal limits. Portal vein is patent. IMPRESSION: 1: Cirrhosis of the liver with splenomegaly, compatible with portal venous hypertension. Reviewed, dictated and finalized at location L. IMPRESSION: 1: Cirrhosis of the liver with splenomegaly, compatible with portal venous hype rtension.
== END 2023-03-21 16:34 | disposition home or self-care (01) ==
PROVIDERS: PCP Family Medicine; Referring Provider Internal Medicine Endocrinology, Diabetes & Metabolism; Visit Provider Internal Medicine Hematology & Oncology
DX: R09.89 Other specified symptoms and signs involving the circulatory and respiratory systems (principal); K74.69 Other cirrhosis of liver
CPT/HCPCS: 71046; 76700

== ENCOUNTER → 2023-06-04 10:12 | Outpatient (CLI) | payer BC, SELFPAY ==
--- NOTE | ~2023-06-04 | XR_ITS ---
Left wrist Technique: PA and lateral views were obtained. Clinical History: Pain Findings: No acute fracture or dislocation is seen. Osseous alignment is anatomic. Joint spaces are p reserved. Soft tissues are unremarkable. Impression: Unremarkable left wrist radiographs. Reviewed, dictated and finalized at location M. Impression: Unremarkable left wrist radiographs.
--- NOTE | ~2023-06-04 | XR_ITS ---
Right wrist Technique: PA, oblique, lateral, and ulnar deviation views were obtained. Clinical History: Pain Findings: No acute fracture or dislocation is seen. Osseous alignment is anatomic. Joint spaces are p reserved. Soft tissues are unremarkable. Impression: No significant abnormality seen. Reviewed, dictated and finalized at location . Impression: No significant abnormality seen.
--- NOTE | ~2023-06-04 | XR_ITS ---
Left ankle Technique: AP and lateral views were obtained. Clinical History: Pain Findings: No acute fracture or dislocation is seen. Chronic fracture fragment at the medial malleolus noted.. Ankle mortise and other visualized joint spaces are preserved. Plantar calcaneal spur presen t. Soft tissues are otherwise unremarkable. Impression: No acute abnormality. Chronic fracture fragment at the medial malleolus. Plantar calcaneal spur. Reviewed, dictated and finalized at location . Impression: No acute abnormality. Chronic fracture fragment at the medial malleolus. Plantar calcaneal spur.
--- NOTE | ~2023-06-04 | XR_ITS ---
Left foot Technique: AP and lateral views were obtained. Clinical History: Pain Findings: No acute fracture or dislocation is seen. Osseous alignment is anatomic. Joint spaces are p reserved without erosive or degenerative change. Soft tissues are unremarkable. Impression: Unremarkable left foot radiographs. Reviewed, dictated and finalized at [facility]. Impression: Unremarkable left foot radiographs.
--- NOTE | ~2023-06-04 | XR_ITS ---
AP and oblique views of the SI joints CLINICAL HISTORY: Pain FINDINGS: No fracture or dislocation seen. Joint spaces are preserved. No erosive or sclerotic change of the SI joints. Soft tissues are unremarkable. There is degenerative spondylosis of the lower lumb ar spine. IMPRESSION: Unremarkable SI joints. Degenerative spondylosis of the lower lumbar spine. Reviewed, dictated and finalized at location .
--- NOTE | ~2023-06-04 | XR_ITS ---
Right ankle Technique: AP and lateral views were obtained. Clinical History: Pain Findings: No acute fracture or dislocation is seen. Probable chronic avulsion fracture fragments of t he medial malleolus. Ankle mortise and other visualized joint spaces are preserved. Soft tissues are otherwise unremarkable. Impression: No acute abnormality. Probable chronic avulsion fracture fragments at the medial malleolus. Reviewed, dictated and finalized at location . Impression: No acute abnormality. Probable chronic avulsion fracture fragments at the medial malleolus.
--- NOTE | ~2023-06-04 | XR_ITS ---
Left Hand Technique: PA and lateral views were obtained. Clinical History: Pain Findings: No acute fracture or dislocation is seen. Osseous alignment is anatomic. There is mild to m oderate degenerative change at the interphalangeal joint of the thumb. Soft tissues are unremarkable. Impression: Mild to moderate degenerative change of the interphalangeal joint of the thumb. Reviewed, dictated and finalized at location . Impression: Mild to moderate degenerative change of the interphalangeal joint of the thumb.
--- NOTE | ~2023-06-04 | XR_ITS ---
Right foot Technique: AP and lateral views were obtained. Clinical History: Pain Findings: No acute fracture or dislocation is seen. Osseous alignment is anatomic. Joint spaces are p reserved without erosive or degenerative change. Soft tissues are unremarkable. Impression: Unremarkable right foot radiographs. Reviewed, dictated and finalized at [facility]. Impression: Unremarkable right foot radiographs.
--- NOTE | ~2023-06-04 | XR_ITS ---
Right Hand Technique: PA and lateral views were obtained. Clinical History: Pain Findings: No acute fracture or dislocation is seen. Osseous alignment is anatomic. Joint spaces are p reserved. Soft tissues are unremarkable. Impression: Unremarkable right hand. Reviewed, dictated and finalized at location M. Impression: Unremarkable right hand.
== END ==
PROVIDERS: PCP Nurse Practitioner Family; Visit Provider Nurse Practitioner Family
DX: R53.81 Other malaise (principal); M47.896 Other spondylosis, lumbar region; M77.32 Calcaneal spur, left foot; M79.671 Pain in right foot; M25.532 Pain in left wrist; M79.672 Pain in left foot; M53.3 Sacrococcygeal disorders, not elsewhere classified; M25.571 Pain in right ankle and joints of right foot; M25.542 Pain in joints of left hand; M25.541 Pain in joints of right hand; M25.531 Pain in right wrist
CPT/HCPCS: 72202; 73100; 73120; 73600; 73620

== ENCOUNTER → 2023-07-12 15:32 | Outpatient (CLI) | payer BC, SELFPAY ==
--- NOTE | ~2023-07-12 | XR_ITS ---
EXAMINATION: XR hip BI 2V w AP pelvis DATE: 07/12/2023 16:37 INDICATION: Acute back pain with sciatica. TECHNIQUE: An anteroposterior view of the pelvis and 2 views of each hip were obtained. COMPARISON: None. FINDINGS: Bone alignment is normal. No fracture. There is moderate lumbar spondylosis. There is mild osteoarthritis of the hips. IMPRESSION: 1. Mild osteoarthritis of the hips. Reviewed, dictated and finalized at location E.
--- NOTE | ~2023-07-12 | XR_ITS ---
Lumbosacral Spine: AP, oblique, and lateral views Clinical History: Pain Findings: The normal lordotic curve is maintained. There is moderate compression fracture involving t he inferior endplate region of L2. There is associated retrolisthesis of L2 over L3, measuring approx imately 5 mm. There are moderate facet joint degenerative changes throughout the lumbar spine. There is advanced degenerative disc narrowing at L5-S1. There are mild degenerative disc changes the remain ing levels. The sacroiliac joints are normally outlined. Impression: Moderate compression fracture of L2. 5 mm retrolisthesis of L2 over L3. Additional mild to moderate degenerative changes, as above. Reviewed, dictated and finalized at location M. Impression: Moderate compression fracture of L2. 5 mm retrolisthesis of L2 over L3. Additional mild to moderate degenerative changes, as above.
--- NOTE | ~2023-07-12 | XR_ITS ---
AP and oblique views of the SI joints CLINICAL HISTORY: Back pain FINDINGS: Bilateral hip joints and bilateral SI joints appear unremarkable. No degenerative, scleroti c or erosive change. No fracture or dislocation evident. Soft tissues are unremarkable. IMPRESSION: Unremarkable exam. Reviewed, dictated and finalized at location . IMPRESSION: Unremarkable exam.
== END ==
PROVIDERS: PCP Internal Medicine; Visit Provider Internal Medicine
DX: M54.40 Lumbago with sciatica, unspecified side (principal); M51.36 Other intervertebral disc degeneration, lumbar region; S32.020A Wedge compression fracture of second lumbar vertebra, initial encounter for closed fracture; X58.XXXA Exposure to other specified factors, initial encounter; M16.0 Bilateral primary osteoarthritis of hip
CPT/HCPCS: 72110; 72202; 73521

== ENCOUNTER 2023-08-03 12:58 | Outpatient (CLI) | payer BC, SELFPAY ==
[2023-08-03 13:16] LABS: Basophils Percent Auto 0.8 % (0.2-1.2); Eosinophils Absolute Auto 0.1 K/mm3 (0-0.3); Eosinophils Percent Auto 1.6 % (0-4.4); Hematocrit 37.9 % (37.0-47.0); Hemoglobin 13.4 g/dL (12.0-15.0); Immature Granulocyte Absolute 0.02 K/mm3 (0.00-0.031); Immature Granulocyte Percent A 0.5 % (0-0.5); Lymphocytes Absolute Auto 1.22 K/mm3 (0.9-3.2); Lymphocytes Percent Auto 33.4 % (18.3-44.2); Mean Corpuscular HGB Conc 35.4 g/dl (32-36); Mean Corpuscular Hemoglobin 32.8 pg (26-34); Mean Corpuscular Volume 92.7 fl (80-100); Monocytes Absolute Auto 0.5 K/mm3 (0.1-0.6); Monocytes Percent Auto 12.6 % (2.6-8.5); Neutrophils Absolute Auto 1.9 K/mm3 (1.3-6.7); Neutrophils Percent Auto 51.1 % (45.5-73.1); Platelet Count Result 81 k/mm3 (150-375); Red Blood Count 4.09 M/mm3 (4.2-5.4); Red Cell Distribution Width 14.1 % (11.5-14.5); White Blood Count 3.7 K/mm3 (4.5-10.0)
[2023-08-03 16:21] LABS: Iron 100 ug/dL (37-170)
[2023-08-03 16:25] LABS: Alanine Aminotransferase 37 U/L (6-35); Albumin Level 4.2 g/dL (3.5-5.1); Alkaline Phosphatase 115 U/L (38-126); Anion Gap 8 mmol/L (8-16); Aspartate Amino Transferase 53 U/L (14-36); Bilirubin,Total 1.6 mg/dL (0.2-1.3); Blood Urea Nitrogen 13 mg/dL (7-17); Calcium 9.2 mg/dL (8.4-10.2); Carbon Dioxide 26 mmol/L (22-30); Chloride 101 mmol/L (98-107); Estimated Glomerular Filt Rate > 60; Glucose 93 mg/dL (65-110); Sodium 135 mmol/L (137-145)
[2023-08-03 16:31] LABS: Percent Iron Saturation 31 % (20-50)
[2023-08-03 17:37] LABS: Folic Acid > 20.0 ng/mL (2.76->20)
== END 2023-08-03 12:59 | disposition home or self-care (01) ==
PROVIDERS: Visit Provider Internal Medicine Hematology & Oncology
DX: K75.81 Nonalcoholic steatohepatitis (NASH) (principal)
CPT/HCPCS: 36415; 80053; 82607; 82728; 82746; 83540; 83550; 85025

== ENCOUNTER 2023-08-16 14:31 | Inpatient (IN) | payer BC, SELFPAY ==
[2023-08-16] VITALS (29 sets, daily range): BP systolic 113–150; BP diastolic 52–83; PULSE 65–91; RESP 13–30; TEMP 36.9–39.5; O2SAT 94–100
--- NOTE | ~2023-08-16 | US_ITS ---
EXAMINATION: US abdomen limited DATE: 08/17/2023 09:40 INDICATION: Abnormal liver function tests TECHNIQUE: Multiple grayscale and Doppler ultrasound images of the abdomen were obtained. COMPARISON: 03/21/2023; CT, 08/16/2023 FINDINGS: The head and body of the pancreas are normal. The pancreatic tail is obscured by bowel gas. The liver demonstrates coarsened echotexture and mildly increased echogenicity. There is nodularity of the liver surface. A small pleural effusion is noted. Normal hepatopetal flow in the main portal v ein. There is a 9 mm cyst of liver. The gallbladder is absent. The normal common bile duct measures 7 mm. IMPRESSION: 1. Cirrhosis of the liver. Reviewed, dictated and finalized at location B. OLOGIC TECHNOLOGIST IMPRESSION: 1. Cirrhosis of the liver.
--- NOTE | ~2023-08-16 | CT_ITS ---
EXAMINATION: CT abdomen pelvis w con DATE: 08/16/2023 21:04 INDICATION: Fever. Back pain. Pyuria. TECHNIQUE: Computed tomography (CT) of the abdomen and pelvis was performed with 100 mL Omnipaque 350 intravenous contrast. Automated exposure control and iterative reconstruction technique were employe d. The dose-length product was 1657.20 mGy-cm. COMPARISON: CT abdomen and pelvis 10/08/2022, lumbar spine radiographs 07/12/2023 FINDINGS: The visualized portions of the lung bases demonstrate mild atelectasis. There is a small ri ght pleural effusion. The heart size is normal. No pericardial effusion. Paraesophageal varices are n oted. The liver demonstrates surface nodularity, consistent with cirrhosis. There is a 7 mm cyst in t he liver. There are changes of cholecystectomy. Splenomegaly is noted. The pancreas, adrenal glands, and kidneys are normal. Stool distends the rectum. The appendix measures 12 mm in diameter. The appen rita measured 10 mm on 10/08/22. There is edema of the intra-abdominal fat. There are no pathologically enlarged lymph nodes. There are no pathologically enlarged lymph nodes. There is no free intraperiton eal fluid. There is a compression fracture of L3 with 3/5 loss of height, likely subacute. There is a T12 compression fracture with 1/5 loss of height. IMPRESSION: 1. Cirrhosis of the liver with portal venous hypertension. 2. Small right pleural effusion. 3. T12 and L3 compression fractures, likely subacute. 4.. Appendiceal diameter of 12 mm, which is indeterminate for appendicitis. Reviewed, dictated and finalized at location E. SAWYER
--- NOTE | ~2023-08-16 | MR_ITS ---
EXAMINATION: MR lumbar spine wo con DATE: 08/17/2023 18:13 INDICATION: Lumbar compression fracture. Leg weakness. TECHNIQUE: Magnetic resonance imaging (MRI) of the lumbar spine was performed without intravenous con trast. COMPARISON: CT abdomen and pelvis 08/16/2023 FINDINGS: There is 5 degrees levocurvature of thoracolumbar spine. There is a compression fracture of L2 with 3/5 loss of height and edema-like marrow signal intensity. There is 7 mm retrolisthesis of L 2 on L3 and 3 mm retrolisthesis of L5 on S1. There is moderately decreased disc height at L2-L3, mild ly decreased disc height at L4-L5, and moderately decreased disc at L5-S1. The distal spinal cord sig nal intensity is normal. The conus medullaris is at L1-L2. The following disc levels are specifically discussed: L1-L2: There is a central extrusion. There is mild right and moderate left facet joint osteoarthritis . There is mild left neural foraminal stenosis. There is mild central canal stenosis. L2-L3: The disc does not extend beyond the endplate margin. There is severe bilateral facet joint ost eoarthritis. There is mild right and moderate left neural foraminal stenosis. There is moderate centr al canal stenosis. L3-L4: The disc is bulging and has an annular fissure. There is severe bilateral facet joint osteoart hritis. There is mild bilateral neural foraminal stenosis. There is mild central canal stenosis. L4-L5: The disc does not extend beyond the endplate margin. There is severe bilateral facet joint ost eoarthritis. There is no neural foraminal stenosis. There is no central canal stenosis. L5-S1: There is a left foraminal extrusion. There is severe bilateral facet joint osteoarthritis. The re is mild bilateral neural foraminal stenosis. There is no central canal stenosis. IMPRESSION: 1. Subacute L2 compression fracture. 2. Moderate lumbar spondylosis. Reviewed, dictated and finalized at location E. HT KITCHEN MANAGER
--- NOTE | ~2023-08-16 | XR_ITS ---
EXAMINATION: XR chest 1V DATE: 08/16/2023 15:13 INDICATION: Weakness. Fever. TECHNIQUE: A single frontal view of the chest was obtained. COMPARISON: Chest 2 views 03/21/2023 FINDINGS: There is no pneumonia, pleural effusion, or pneumothorax. The heart size is normal. IMPRESSION: 1. No acute cardiopulmonary disease. Reviewed, dictated and finalized at location E. ROCK MINER BLASTING
[2023-08-16 15:13] LABS: Basophils Percent Auto 0.3 % (0.2-1.2); Hematocrit 36.8 % (37.0-47.0); Hemoglobin 12.8 g/dL (12.0-15.0); Immature Granulocyte Absolute 0.03 K/mm3 (0.00-0.031); Immature Granulocyte Percent A 0.5 % (0-0.5); Immature Platelet Fraction Pct 3.8 % (0.9-11.2); Lymphocytes Absolute Auto 0.54 K/mm3 (0.9-3.2); Lymphocytes Percent Auto 8.2 % (18.3-44.2); Mean Corpuscular HGB Conc 34.8 g/dl (32-36); Mean Corpuscular Hemoglobin 32.5 pg (26-34); Mean Corpuscular Volume 93.4 fl (80-100); Mean Platelet Volume 10.6 fl (7.4-10.4); Monocytes Absolute Auto 0.5 K/mm3 (0.1-0.6); Monocytes Percent Auto 7.6 % (2.6-8.5); Neutrophils Absolute Auto 5.5 K/mm3 (1.3-6.7); Neutrophils Percent Auto 83.4 % (45.5-73.1); Platelet Count Result 58 k/mm3 (150-375); Red Blood Count 3.94 M/mm3 (4.2-5.4); Red Cell Distribution Width 14.6 % (11.5-14.5); White Blood Count 6.6 K/mm3 (4.5-10.0)
[2023-08-16 15:15] LABS: Lactic Acid Reflex 1.4 mmol/L (0.7-2.0)
[2023-08-16 15:17] LABS: Alanine Aminotransferase 44 U/L (6-35); Albumin Level 3.9 g/dL (3.5-5.1); Alkaline Phosphatase 93 U/L (38-126); Anion Gap 7 mmol/L (8-16); Aspartate Amino Transferase 62 U/L (14-36); Bilirubin,Total 3.3 mg/dL (0.2-1.3); Blood Urea Nitrogen 18 mg/dL (7-17); CRP 3.8 mg/dL (<1.0); Calcium 8.6 mg/dL (8.4-10.2); Carbon Dioxide 25 mmol/L (22-30); Chloride 100 mmol/L (98-107); Estimated CRCL calculation 108 ml/min; Estimated Glomerular Filt Rate > 60; Glucose 142 mg/dL (65-110); Potassium 3.8 mmol/L (3.4-5.0); Sodium 132 mmol/L (137-145)
[2023-08-16 15:22] LABS: INR 1.3; Prothrombin Time 16.5 Seconds (11.1-14.7)
[2023-08-16 15:23] LABS: Partial Thromboplastin Time 36.8 SECONDS (22.3-36.8)
[2023-08-16 15:26] LABS: Platelet Estimate Decreased (Adequate); Schistocytes None Seen (NORMAL)
[2023-08-16 15:40] LABS: SARS-CoV-2 RNA PCR Negative (Negative)
--- NOTE | 2023-08-16 17:36 | ED.FEVER ---
HPI - Fever General Chief Complaint: Fever Stated Complaint: fever Time Seen by Provider: 08/16/23 17:34 Source: patient Limitations: no limitations History of Present Illness HPI Narrative: This is a 58 yo female with cirrhosis who presents with a fever. This started yesterday though she also states she possibly had one Sunday. Temp earlier today at home was 103.9F. She is also experiencing generalized weakness and myalgias. Deneis any cough. She has chronic thrombocypoenia with spontaneous bruising as a result. Denies abdominal pain. She took Tylenol for her back pain. She states she has a history of sciatica and was having low back pain and buttock pain. Denies dysuria, hematuria but has been having urgency and frequency. No history of paracentesis. Lives by her self. Her bleach chlorinator is Dr Gunn and her senior gl accountant is a Eriak ESCOTO at [employer]. Related Data Home Medications Medication Instructions Recorded Confirmed levothyroxine 150 mcg tablet 150 mcg PO DAILY 11/04/19 08/17/23 (Synthroid) cholecalciferol (vitamin D3) 50 50 mcg PO DAILY 09/27/21 08/17/23 mcg (2,000 unit) capsule umaeegzz-waq-ltbcn ac 400 1 tablet PO DAILY 09/27/21 08/17/23 mcg-calcium carb 500 mg-vit K1 20 mcg tablet (Women's 50 Plus Multivitamin) diclofenac sodium 50 mg 50 mg PO BID joint pain 10/08/22 08/17/23 tablet,delayed release calcium carbonate 600 mg calcium 600 mg PO DAILY 10/19/22 08/17/23 (1,500 mg) tablet (Calcium) cyclobenzaprine 10 mg tablet 10 mg DAILY PRN Muscle Pain 08/17/23 08/17/23 gabapentin 300 mg capsule 300 mg PO BID 08/17/23 08/17/23 tramadol 50 mg tablet 50 mg PO Q4-6H PRN joint pain 08/17/23 08/17/23 Allergies Allergy/AdvReac Type Severity Reaction Status Date / Time No Known Allergies Allergy Mild Verified 08/16/23 14:35 [facility] Past Medical History Medical History (Updated 08/18/23 @ 10:56 by Shasta Linares MD) Anxiety Cirrhosis of liver Diabetes Essential hypertension Family history of colon cancer Hypothyroid Moderate single current episode of major depressive disorder Obstructive sleep apnea syndrome Type 2 diabetes mellitus Surgical History Surgical History History of cholecystectomy History of ear surgery History of eye surgery Hx of elbow surgery S/P tonsillectomy and adenoidectomy [place] teeth removed Family History Family History Mother Hypertension Diabetes mellitus Lung cancer Father Hypertension Diabetes mellitus Myelodysplasia (myelodysplastic syndrome) Sibling Colorectal cancer, stage III Social History Social History Social History: the patient lives home alone. she is single. she has no children. She works for [employer] code status full code Smoking status: Never smoker Second hand tobacco smoke exposure: No Alcohol intake: never Alcohol use details: rarely Substance use: never Substance use type: does not use Lack of Transportation: No Lack of Food: Never True Current Housing: I Have Housing Concerned About Future Housing: No Difficulty Paying Gas/Electric Bills: No Difficulty Paying for Meds: No Currently Unemployed: No Education: Associate Degree Difficulty w/ Childcare or Family Care: No Living arrangements: alone Gender identity (if verbalized by the patient): Female Spiritual care concerns: No Exam Const: General: alert; No diaphoretic Nutritional Appearance: well nourished and obese Orientation/consciousness: patient oriented x3 Limitations: no limitations HENMT: Head: normal to inspection Other: tacky mucous membranes ; gross auditory acuity intact Eyes: Direct Ophthalmoscopy: no photophobia Other: xanthelasma deposit on eyelid Resp: Effort & Inspection: normal respiratory effort, not labored, no r
[2023-08-16 18:29] LABS: Appearance Urine Cloudy (Clear); Bacteria Urine None Seen /hpf; Bilirubin Urine 1+ (Negative); Blood Urine Negative (Negative); Color Urine Dark Yellow (Yellow); Glucose Urine UA Negative (Negative); Ketones Urine Trace mg/dL (Negative); Leukocyte Esterase Ur Trace LEU/UL (Negative); Need Manual Microscopic Reviewed; Nitrate Urine Negative (Negative); Non Pathogenic Casts 0-2; Protein Urine Trace mg/dL (Negative); Specific Grav Ur 1.024 (1.001-1.035); Squamous Epithelial Cell Urine None seen /hpf (Few); WBC Urine 0-5 /hpf; pH Urine 5.5 (5.0-9.0)
[2023-08-16 18:31] LABS: Add Urine Microscopic? YES
[2023-08-16] MEDS: SODIUM CHLORIDE 0.9% IV 1,000 ML 999 ML IV CONT (18:49)
--- NOTE | 2023-08-16 19:22 | PC.NURSE ---
This RN assumed care of patient. This RN took patient report from PHIL Woodard.
--- NOTE | 2023-08-16 19:35 | PM.IMHP ---
H&P: HPI History of Present Illness Date/Time: 08/16/23 19:35 Chief Complaint: Fever Narrative: patient Has history of liver cirrhosis, who presented to the Ed with fatigue and fever, she recorded a temp of 103.1 on arrival, she lives by herself and said she fll because she was weak, she denied cough or congestion, chest pain, abdominal pain or urinary symptoms.. She was evaluated in the UA and found to have low platelet count and WBCs in urine. She has been started on antibiotic for treatment of UTI and she will be admitted for observation Review of Systems Review of Systems: All systems reviewed & are unremarkable except as noted in HPI and below PMFSH Past Medical History Medical History Anxiety Diabetes Essential hypertension Family history of colon cancer Hypothyroid Lupus Moderate single current episode of major depressive disorder Obstructive sleep apnea syndrome Type 2 diabetes mellitus Surgical History Surgical History History of cholecystectomy History of ear surgery History of eye surgery Hx of elbow surgery S/P tonsillectomy and adenoidectomy [place] teeth removed Family History Family History Mother Hypertension Diabetes mellitus Lung cancer Father Hypertension Diabetes mellitus Myelodysplasia (myelodysplastic syndrome) Sibling Colorectal cancer, stage III Social History Social History Social History: the patient lives home alone. she is single. she has no children. She works for [employer]. code status full code Smoking status: Never smoker Second hand tobacco smoke exposure: No Alcohol intake: never Alcohol use details: rarely Substance use: never Substance use type: does not use Lack of Transportation: No Lack of Food: Never True Current Housing: I Have Housing Concerned About Future Housing: No Difficulty Paying Gas/Electric Bills: No Difficulty Paying for Meds: No Currently Unemployed: No Education: Associate Degree Difficulty w/ Childcare or Family Care: No Living arrangements: alone Gender identity (if verbalized by the patient): Female Spiritual care concerns: No Meds Home Medications and Allergies Home Medications Medication Instructions Recorded Confirmed Type levothyroxine 150 mcg tablet 150 mcg PO DAILY 11/04/19 08/17/23 History (Synthroid) cholecalciferol (vitamin D3) 50 50 mcg PO DAILY 09/27/21 08/17/23 History mcg (2,000 unit) capsule fciimhem-pgn-ykrgj ac 400 1 tablet PO DAILY 09/27/21 08/17/23 History mcg-calcium carb 500 mg-vit K1 20 mcg tablet (Women's 50 Plus Multivitamin) diclofenac sodium 50 mg 50 mg PO BID joint pain 10/08/22 08/17/23 History tablet,delayed release calcium carbonate 600 mg calcium 600 mg PO DAILY 10/19/22 08/17/23 History (1,500 mg) tablet (Calcium) metformin 500 mg tablet 500 mg PO BID #180 tabs 12/03/22 08/17/23 Rx lisinopril 10 1 tablet PO DAILY #90 tabs 02/07/23 08/17/23 Rx mg-hydrochlorothiazide 12.5 mg tablet venlafaxine 75 mg capsule,extended 75 mg PO DAILY #90 caps 08/10/23 08/17/23 Rx release 24 hr cyclobenzaprine 10 mg tablet 10 mg DAILY PRN Muscle Pain 08/17/23 08/17/23 History gabapentin 300 mg capsule 300 mg PO BID 08/17/23 08/17/23 History tramadol 50 mg tablet 50 mg PO Q4-6H PRN joint pain 08/17/23 08/17/23 History Allergies Allergy/AdvReac Type Severity Reaction Status Date / Time No Known Allergies Allergy Mild Verified 08/16/23 14:35 Vital Signs Vital Signs - 24 hr 08/16/23 14:36 08/16/23 17:59 08/16/23 18:43 Temperature 103.1 F H 98.5 F Pulse Rate 91 83 83 Respiratory Rate 16 29 H 17 Blood Pressure 149/83 H 148/62 H Pulse Oximetry 94 100 99 Exam Narrative: Gen: A/Ox4, not in distress, let
[2023-08-16] MEDS: KETOROLAC 15 MG/ML VIAL (*BKC) IV PUSH (19:41)
[2023-08-16] MEDS: IBUPROFEN 400 MG TABLET PO (19:47)
[2023-08-16] MEDS: LACTATED RINGERS 1,000 ML 100 ML IV CONT (21:26)
[2023-08-16] MEDS: metroNIDAZOLE 500 MG/ISO 100ML 500 MG/100 ML BAG 100 MG IVPB (22:16)
--- NOTE | 2023-08-16 23:42 | ADMGEN ---
This patient, Lindsey Doherty, was admitted to [facility] Surg Room 321-02 at 23:42. Patient/family oriented to hospital policies and general routines including ID bracelet, bed and alarms, visiting hours, pain management, procedures, bathroom and other care routines, personal items, smoking policy, room service/diet, and visiting hours. Information on how to activate the Rapid Response Team has been discussed. Patient/Family are encouraged to report perceived risks to care and to ask questions if they do not understand what they are told or what they should do.
[2023-08-17] VITALS (10 sets, daily range): BP systolic 117–125; BP diastolic 52–62; PULSE 59–78; RESP 14–18; TEMP 36.4–39.6; O2SAT 96–98
[2023-08-17] MEDS: IBUPROFEN 400 MG TABLET PO ×2 (05:00→16:39)
[2023-08-17] MEDS: metroNIDAZOLE 500 MG/ISO 100ML 500 MG/100 ML BAG 100 MG IVPB ×3 (05:14→21:20)
[2023-08-17 07:01] LABS: Basophils Percent Auto 0.4 % (0.2-1.2); Hematocrit 30.6 % (37.0-47.0); Hemoglobin 10.5 g/dL (12.0-15.0); Immature Granulocyte Absolute 0.04 K/mm3 (0.00-0.031); Immature Granulocyte Percent A 0.8 % (0-0.5); Lymphocytes Absolute Auto 0.52 K/mm3 (0.9-3.2); Lymphocytes Percent Auto 10.5 % (18.3-44.2); Mean Corpuscular HGB Conc 34.3 g/dl (32-36); Mean Corpuscular Hemoglobin 32.6 pg (26-34); Mean Platelet Volume 10.6 fl (7.4-10.4); Monocytes Absolute Auto 0.5 K/mm3 (0.1-0.6); Monocytes Percent Auto 9.9 % (2.6-8.5); Neutrophils Absolute Auto 3.9 K/mm3 (1.3-6.7); Neutrophils Percent Auto 78.4 % (45.5-73.1); Platelet Count Result 37 k/mm3 (150-375); Red Blood Count 3.22 M/mm3 (4.2-5.4); Red Cell Distribution Width 14.6 % (11.5-14.5)
[2023-08-17] MEDS: LACTATED RINGERS 1,000 ML 100 ML IV CONT (07:06)
[2023-08-17 07:09] LABS: Anion Gap 5 mmol/L (8-16); Blood Urea Nitrogen 14 mg/dL (7-17); Calcium 7.6 mg/dL (8.4-10.2); Carbon Dioxide 24 mmol/L (22-30); Chloride 100 mmol/L (98-107); Estimated CRCL calculation 112 ml/min; Estimated Glomerular Filt Rate > 60; Glucose 174 mg/dL (65-110); Potassium 3.5 mmol/L (3.4-5.0); Sodium 129 mmol/L (137-145)
[2023-08-17] MEDS: LEVOTHYROXINE SODIUM 150 MCG TABLET PO (07:10)
[2023-08-17 09:09] LABS: Hepatitis B Surface Antigen Negative (Negative)
[2023-08-17 09:15] LABS: HAV RESULT Negative (Negative); Hepatitis B Core IgM Result Negative (Negative)
[2023-08-17 09:27] LABS: Hepatitis C Virus Antibody Negative (Negative)
[2023-08-17] MEDS: hydroCHLOROthiazide 12.5 MG CAPSULE PO (10:36)
[2023-08-17] MEDS: VENLAFAXINE HCL XR 75 MG CAP.ER.24H PO (10:36)
[2023-08-17] MEDS: CHOLECALCIFEROL 1,000 UNITS TABLET 2000 UNITS PO (10:36)
[2023-08-17] MEDS: GABAPENTIN 300 MG CAPSULE PO ×2 (10:36→16:39)
--- NOTE | 2023-08-17 11:30 | P.PNIM_ITS ---
Progress Note: A&P Assessment and Plan (1) Fatigue: Code(s): R53.83 - Other fatigue Status: Acute Assessment and Plan: * Fever of unknown origin present at admission to ER, highest temp 103.2 on 11/10 am, gradually coming down -PRN available for fever * Fatigue and weakness of legs, likely due to subacute T12 and L3 compression fracture found on CT * Flu/covid negative * BC pending * IVF and supportive care (2) Cirrhosis of liver: Code(s): K74.60 - Unspecified cirrhosis of liver Status: Acute Assessment and Plan: * CT abdomen and pelvis showed cirrhosis with portal hypertension with enlarged appendix that has increased in size from prior CT scan - indeterminate for appendicitis, not sure if this is due to ascites as patient has no pain, no rebound tenderness - WBC likely won't jump due to liver - will consider gen surg consult if clinically appropriate * broaden her antibiotic, to flagyl and ceftriaxone for time being until appendicitis is ruled out (awaiting GI consult) * Follows with batch trucker outpatient, has been monitoring closely * will hold metformin and lisinopril for the time being * hepatitis panel was negative (3) Thrombocytopenia: Code(s): D69.6 - Thrombocytopenia, unspecified Status: Chronic Assessment and Plan: * Follows with Dr. Jamison outpatient, attempted to call and give update per patient request. * previously stable platelets, 37 at admission * will hold anticoagulation (4) Pyuria: Code(s): R82.81 - Pyuria Status: Acute Assessment and Plan: * UA showed pyuria without bacteria, no reflex to culture. * Rocephin given, but will d/c for UTI purposes * Trace ketones due to DM2 Plan Chronic conditions: 1. DM Type 2 * holding metformin for now * will monitor her BS * start sliding scale insulin if needed 2. hypertension * holding lisinopril for now due to liver, will monitor BP closely 3. hypothyroidism * continue home levothyroxine Subjective Date/time seen: 08/17/23 11:30 Interval history: Patient is 58 YO female with PMH of liver cirrhosis, admitted from the ED with fatigue and fever, starting on Sunday. She has felt weakness in her legs for weeks, and she even fell at her home due to this. She does not check her BS regularly, but reports her A1C is good. She does have neuropathy which she takes gabapentin and diclofenac. She lives by herself. She denies any other symptoms of infection such as cough, SOB, chest pain, abdominal pain or urinary symptoms. She follows with Dr. Jamison for her low platelets, and does have a batch trucker who she follows for her cirrhosis diagnosis given in October. Her management has been close monitoring and at last follow up was stable. She denies leg swelling, N/V/diarrhea. Her UA showed WBCs in urine but no bacteria to culture. She has been started on antibiotic for treatment of UTI, and broadened to cover for possible appendicitis should that need to be ruled out. Will plan to D/C AB therapy if cl inically stable. GI consulted, may consider gen surg if appropriate. Review of Systems Review of Systems: leg weakness, pain in right lower back worse than left, fatigue and weakness All systems reviewed & are unremarkable except as noted in HPI and below Exam Narrative: Gen: A/Ox4, not in distress, lethargic, dehydrated HEENT: normocephalic atraumatic EOMI, dry oral mucosa Resp: decreased lung sounds at bases, no crackles or rales Cardio: RRR, no murmur GI: abdomen is obes
--- NOTE | 2023-08-17 11:30 | PM.IMPN ---
Progress Note: A&P Assessment and Plan (1) Fatigue: Code(s): R53.83 - Other fatigue Status: Acute Assessment and Plan: Fever of unknown origin present at admission to ER, highest temp 103.2 on 11/10 am, gradually coming down -PRN available for fever Fatigue and weakness of legs, likely due to subacute T12 and L3 compression fracture found on CT Flu/covid negative BC pending IVF and supportive care (2) Cirrhosis of liver: Code(s): K74.60 - Unspecified cirrhosis of liver Status: Acute Assessment and Plan: CT abdomen and pelvis showed cirrhosis with portal hypertension with enlarged appendix that has increased in size from prior CT scan - indeterminate for appendicitis, not sure if this is due to ascites as patient has no pain, no rebound tenderness - WBC likely won't jump due to liver - will consider gen surg consult if clinically appropriate broaden her antibiotic, to flagyl and ceftriaxone for time being until appendicitis is ruled out (awaiting GI consult) Follows with powder press operator outpatient, has been monitoring closely will hold metformin and lisinopril for the time being hepatitis panel was negative (3) Thrombocytopenia: Code(s): D69.6 - Thrombocytopenia, unspecified Status: Chronic Assessment and Plan: Follows with Dr. Jamison outpatient, attempted to call and give update per patient request. previously stable platelets, 37 at admission will hold anticoagulation (4) Pyuria: Code(s): R82.81 - Pyuria Status: Acute Assessment and Plan: UA showed pyuria without bacteria, no reflex to culture. Rocephin given, but will d/c for UTI purposes Trace ketones due to DM2 Plan Chronic conditions: 1. DM Type 2 holding metformin for now will monitor her BS start sliding scale insulin if needed 2. hypertension holding lisinopril for now due to liver, will monitor BP closely 3. hypothyroidism continue home levothyroxine Subjective Date/time seen: 08/17/23 11:30 Interval history: Patient is 58 YO female with PMH of liver cirrhosis, admitted from the ED with fatigue and fever, starting on Sunday. She has felt weakness in her legs for weeks, and she even fell at her home due to this. She does not check her BS regularly, but reports her A1C is good. She does have neuropathy which she takes gabapentin and diclofenac. She lives by herself. She denies any other symptoms of infection such as cough, SOB, chest pain, abdominal pain or urinary symptoms. She follows with Dr. Jamison for her low platelets, and does have a powder press operator who she follows for her cirrhosis diagnosis given in October. Her management has been close monitoring and at last follow up was stable. She denies leg swelling, N/V/diarrhea. Her UA showed WBCs in urine but no bacteria to culture. She has been started on antibiotic for treatment of UTI, and broadened to cover for possible appendicitis should that need to be ruled out. Will plan to D/C AB therapy if clinically stable. GI consulted, may consider gen surg if appropriate. Review of Systems Review of Systems: leg weakness, pain in right lower back worse than left, fatigue and weakness All systems reviewed & are unremarkable except as noted in HPI and below Exam Narrative: Gen: A/Ox4, not in distress, lethargic, dehydrated HEENT: normocephalic atraumatic EOMI, dry oral mucosa Resp: decreased lung sounds at bases, no crackles or rales Cardio: RRR, no murmur GI: abdomen is obese, soft and non tender, no CVA tenderness, normal BS. No rebound tenderness. Back: direct spinal tenderness upper lumbar spine with paraspinal tenderness Skin: no rash or wounds present. Sensation intact. Diffuse bruising throughout arms. Neuro: No focal neurological deficit, mood and affect pleasant and appropriate. Objective Data Vital Signs Vital Signs: Vital Signs - 24 hr 08/16/23 14:36 08/16/23 17:59
[2023-08-17] MEDS: CALCIUM CARBONATE (OSCAL) 500 MG TABLET 600 MG PO (12:55)
--- NOTE | 2023-08-17 15:09 | WPDGICN ---
Assessment and Plan Assessment and plan (1) Cirrhosis of liver: Code(s): K74.60 - Unspecified cirrhosis of liver Status: Acute Assessment and Plan: As noted above, she has been seen by hepatology at [facility]. The etiology of her cirrhosis has been determined to be ALVAREZ. Ultrasound yesterday reveals: The head and body of the pancreas are normal. The pancreatic tail is obscured by bowel gas. The liver demonstrates coarsened echotexture and mildly increased echogenicity. There is nodularity of the liver surface. A small pleural effusion is noted. Normal hepatopetal flow in the main portal vein. There is a 9 mm cyst of liver. The gallbladder is absent. The normal common bile duct measures 7 mm. , no ascites, no evidence of intra-abdominal varices. I did discuss with her the possible complications of liver disease including esophageal varices, encephalopathy, ascites which can be refractory she states that she is aware of these things as it has been discussed with her mid least briefly the 1st time she saw her operational assistant at [facility]. (2) Thrombocytopenia: Code(s): D69.6 - Thrombocytopenia, unspecified Status: Chronic Assessment and Plan: She is followed by Hematology for her low platelet count and other hematologic abnormalities. Her white blood count was also low. (3) Fatigue: Code(s): R53.83 - Other fatigue Status: Acute Assessment and Plan: This is her main complaint. She states that she has been extremely tired the last week particularly in her legs making it difficult for her to walk. This is the principal reason for her hospitalization at this time. (4) Obesity: Code(s): E66.9 - Obesity, unspecified Status: Acute Assessment and Plan: Her weight has been stable for the past year. She is a type 2 diabetic. Plan It appears that her liver disease has been well investigated at [facility] and she has follow-up within a couple of weeks. I will follow her peripherally; in other words call me if I can be of any further help. GI Consult Note Consult date/time: 08/17/23 15:09 HPI: Lindsey Doherty is a 58 year old female Admitted primarily because of profound weakness. She also has had a low-grade fever. I have been asked to see her for evaluation and management of her cirrhosis. She was told that she had cirrhosis earlier this year. She has been seen by a operational assistant at [facility] and has a follow-up appointment in a couple of weeks. She was told that the etiology of her liver disease was fatty liver due to her being overweight. She states that she has never had ascites. She has not yet had an EGD to check for varices but states that that has been mentioned. She has never had any gastrointestinal bleeding. She is also followed by Hematology because of a low platelet count which she understands is secondary to her liver disease. It has fluctuated between 30K and 80K. Today it is 37,000 and she states that this is about the lowest it has ever been. Her INR is marginally elevated at 1.3. She is not diabetic. There is no family history of liver disease. 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 She has never been a drinker. Review of Systems Review of Systems: All systems reviewed & are unremarkable except as noted in HPI and below PMFSH Past Medical History Medical History (Updated 08/17/23 @ 12:01 by Natasha Kong APRN) Anxiety Diabetes Essential hypertension Family history of colon cancer Hypothyroid Moderate single current episode of major depressive disorder Obstructive sleep apnea syndrome Type 2 diabetes mellitus Surgical History Surgical History History of cholecystectomy History of ear surgery History of eye surgery Hx of elbow surgery S/P tonsillectomy and adenoidecto
[2023-08-17 16:40] LABS: Glucose Point of Care 142 mg/dl (65-105)
[2023-08-17 20:41] LABS: Glucose Point of Care 132 mg/dl (65-105)
[2023-08-18] MEDS: LACTATED RINGERS 1,000 ML 100 ML IV CONT ×2 (01:11→17:19)
[2023-08-18] MEDS: LEVOTHYROXINE SODIUM 150 MCG TABLET PO (05:31)
[2023-08-18] MEDS: metroNIDAZOLE 500 MG/ISO 100ML 500 MG/100 ML BAG 100 MG IVPB ×3 (05:31→21:07)
[2023-08-18 06:00] VITALS: BP 131/67; PULSE 59; RESP 13; TEMP 36.5; O2SAT 99
[2023-08-18 07:20] LABS: Hematocrit 31.3 % (37.0-47.0); Hemoglobin 10.6 g/dL (12.0-15.0); Immature Platelet Fraction Pct 8.3 % (0.9-11.2); Mean Corpuscular HGB Conc 33.9 g/dl (32-36); Mean Corpuscular Hemoglobin 32.4 pg (26-34); Mean Corpuscular Volume 95.7 fl (80-100); Mean Platelet Volume 10.8 fl (7.4-10.4); Platelet Count Result 41 k/mm3 (150-375); Red Blood Count 3.27 M/mm3 (4.2-5.4); Red Cell Distribution Width 14.8 % (11.5-14.5); White Blood Count 2.6 K/mm3 (4.5-10.0)
[2023-08-18 07:37] LABS: Anion Gap 6 mmol/L (8-16); Blood Urea Nitrogen 9 mg/dL (7-17); Calcium 7.9 mg/dL (8.4-10.2); Carbon Dioxide 26 mmol/L (22-30); Chloride 99 mmol/L (98-107); Estimated CRCL calculation 129 ml/min; Estimated Glomerular Filt Rate > 60; Glucose 134 mg/dL (65-110); Lipase 85 U/L (23-300); Potassium 3.6 mmol/L (3.4-5.0); Sodium 131 mmol/L (137-145)
[2023-08-18] MEDS: GABAPENTIN 300 MG CAPSULE PO ×2 (08:29→17:20)
[2023-08-18] MEDS: traMADol HCL (*CRX) 50 MG TABLET PO (08:29)
[2023-08-18] MEDS: VENLAFAXINE HCL XR 75 MG CAP.ER.24H PO (08:29)
[2023-08-18] MEDS: CHOLECALCIFEROL 1,000 UNITS TABLET 2000 UNITS PO (08:30)
[2023-08-18] MEDS: hydroCHLOROthiazide 12.5 MG CAPSULE PO (08:30)
[2023-08-18 08:35] LABS: Glucose Point of Care 134 mg/dl (65-105)
[2023-08-18] MEDS: ceFAZolin 1 GM/NS 50 ML 1 GM/50 ML BAG IVPB ×2 (10:05→17:20)
[2023-08-18] MEDS: CALCIUM CARBONATE (OSCAL) 500 MG TABLET 600 MG PO (11:15)
[2023-08-18 11:50] LABS: Glucose Point of Care 150 mg/dl (65-105)
--- NOTE | 2023-08-18 13:05 | PM.CNGS ---
Assessment and Plan Assessment and plan (1) Abnormal CT of the abdomen: Code(s): R93.5 - Abnormal findings on diagnostic imaging of other abdominal regions, including retroperitoneum Status: Acute Assessment and Plan: I have reviewed the CT from this admission as well as her CT from October. I discussed the findings with the patient. She has a 12 mm appendix but no signs of perforation or abscess. Her CT 11 months ago showed a 10 mm appendix. These 2 CTs do not seem to be grossly different. She has absolutely no abdominal pain therefore I think this is an incidental finding and would not be related to her fevers. She also would not be a good surgical candidate given the extremely low platelet levels and findings of cirrhosis with portal hypertension. I would not recommend any surgery given these findings. Would recommend continued IV antibiotics and could consider repeat imaging if any abdominal symptoms develop. Will sign off. (2) Cirrhosis of liver: Qualifiers: Ascites presence: without ascites Hepatic cirrhosis type: unspecified hepatic cirrhosis Qualified Code(s): K74.60 - Unspecified cirrhosis of liver Code(s): K74.60 - Unspecified cirrhosis of liver Status: Acute (3) Thrombocytopenia: Code(s): D69.6 - Thrombocytopenia, unspecified Status: Chronic (4) Obstructive sleep apnea syndrome: Code(s): G47.33 - Obstructive sleep apnea (adult) (pediatric) Status: Acute (5) Essential hypertension: Code(s): I10 - Essential (primary) hypertension Status: Acute History of Present Illness Consult details Consult date: 08/18/23 Reason for consult: other (Abnormal imaging of the appendix) Requesting physician: Natasha Kong APRN Narrative: This is a 58-year-old woman who I am asked to see for an enlarged appendix. She presented to the hospital with fever of unknown origin. She has been admitted and is being treated with broad-spectrum IV antibiotics. She has a history of cirrhosis likely secondary to ALVAREZ that was diagnosed in October of this year. She began experiencing fevers about 3 days ago. She does not complain of any other clearly identifiable causes. She has been experiencing fatigue some pain shooting down her legs. She also had a rash with fever back in October and does note some rash to her lower back today. She denies any abdominal pain. She denies any nausea or vomiting. She has not had much of an appetite. A CT abdomen and pelvis was done on 08/16/2023 when she 1st presented. This showed a dilated appendix up to 12 mm, but no other significant findings to explain the fever. Review of Systems Review of Systems: All systems reviewed & are unremarkable except as noted in HPI and below Eyes: Eyes: Denies change in vision ENT: Denies hearing loss, Denies neck pain and Denies sore throat Cardiovascular: Cardiovascular: Denies chest pain and Denies dyspnea Respiratory: Respiratory: Denies cough, Denies dyspnea and Denies wheezing Gastrointestinal: Gastrointestinal: Reports as per HPI Genitourinary: Genitourinary: Denies hematuria and Denies dysuria Musculoskeletal: Musculoskeletal: Denies arthralgias, Denies joint swelling and Denies neck pain Allergic/Immunologic: Allergic/Immunologic: Denies wheezing [facility] Past Medical History Medical History (Updated 08/18/23 @ 13:10 by Emigdio Pringle DO) Anxiety Cirrhosis of liver Diabetes Essential hypertension Family history of colon cancer Hypothyroid Moderate single current episode of major depressive disorder Obstructive sleep apnea syndrome Type 2 diabetes mellitus Surgical History Surgical History History of cholecystectomy History of ear surgery History of eye surgery Hx of elbow surgery S/P tonsillectomy and adenoidectomy [place] teeth removed Family History Family History (Reviewed 08/17/23 @ 00:46 by Mesha Chaudhari
[2023-08-18 14:00] VITALS: BP 125/56; PULSE 63; RESP 18; TEMP 36.7; O2SAT 98
--- NOTE | 2023-08-18 15:28 | P.PNIM_ITS ---
Progress Note: A&P Assessment and Plan (1) Fatigue: Code(s): R53.83 - Other fatigue Status: Acute Assessment and Plan: * Fever of unknown origin present at admission to ER, highest temp 103.2 on 11/10 am, gradually coming down -PRN available for fever * Fatigue and weakness of legs, likely due to subacute T12 and L3 compression fracture found on CT * Flu/covid negative * BC pending * IVF and supportive care (2) Cirrhosis of liver: Code(s): K74.60 - Unspecified cirrhosis of liver Status: Inactive Assessment and Plan: * CT abdomen and pelvis showed cirrhosis with portal hypertension with enlarged appendix that has increased in size from prior CT scan - indeterminate for appendicitis, not sure if this is due to ascites as patient has no pain, no rebound tenderness - WBC likely won't jump due to liver - will consider gen surg consult if clinically appropriate * broaden her antibiotic, to flagyl and ceftriaxone for time being until appendicitis is ruled out * GI/gen surg cleared at this time, watch and wait * Follows with spinning mule tender outpatient, has been monitoring closely * will hold metformin and lisinopril for the time being * hepatitis panel was negative (3) Thrombocytopenia: Code(s): D69.6 - Thrombocytopenia, unspecified Status: Chronic Assessment and Plan: * Follows with Dr. Jamison outpatient, attempted to call and give update per patient request. * previously stable platelets, 37 at admission * will hold anticoagulation (4) Pyuria: Code(s): R82.81 - Pyuria Status: Acute Assessment and Plan: * UA showed pyuria without bacteria, no reflex to culture. * Rocephin given, but will d/c for UTI purposes * Trace ketones due to DM2 (5) Rash and nonspecific skin eruption: Code(s): R21 - Rash and other nonspecific skin eruption Status: Acute Assessment and Plan: * spreading of diffuse erythemic, warm rash starting 11/10 pm and spread throughout morning. 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 DM Type 2 * holding metformin for now * will monitor her BS * start sliding scale insulin if needed 2. hypertension * holding lisinopril for now due to liver, will monitor BP closely 3. hypothyroidism * continue home levothyroxine Subjective Date/time seen: 08/18/23 15:28 Interval history: Patient is 58 YO female with PMH of liver cirrhosis, admitted from the ED with fatigue and fever, starting on Sunday. She has felt weakness in her legs for weeks, and she even fell at her home due to this. She does not check her BS regularly, but reports her A1C is good. She does have neuropathy which she takes gabapentin and diclofenac. She lives by herself. She denies any other symptoms of infection such as cough, SOB, chest pain, abdominal pain or urinary symptoms. She follows with Dr. Jamison for her low platelets, and does have a spinning mule tender who she follows for her cirrhosis diagnosis given in October. Her management has been close monitoring and at last follow up was stable. She denies leg swellin
--- NOTE | 2023-08-18 15:28 | PM.IMPN ---
Progress Note: A&P Assessment and Plan (1) Fatigue: Code(s): R53.83 - Other fatigue Status: Acute Assessment and Plan: Fever of unknown origin present at admission to ER, highest temp 103.2 on 11/10 am, gradually coming down -PRN available for fever Fatigue and weakness of legs, likely due to subacute T12 and L3 compression fracture found on CT Flu/covid negative BC pending IVF and supportive care (2) Cirrhosis of liver: Code(s): K74.60 - Unspecified cirrhosis of liver Status: Inactive Assessment and Plan: CT abdomen and pelvis showed cirrhosis with portal hypertension with enlarged appendix that has increased in size from prior CT scan - indeterminate for appendicitis, not sure if this is due to ascites as patient has no pain, no rebound tenderness - WBC likely won't jump due to liver - will consider gen surg consult if clinically appropriate broaden her antibiotic, to flagyl and ceftriaxone for time being until appendicitis is ruled out GI/gen surg cleared at this time, watch and wait Follows with cylinder block mechanic outpatient, has been monitoring closely will hold metformin and lisinopril for the time being hepatitis panel was negative (3) Thrombocytopenia: Code(s): D69.6 - Thrombocytopenia, unspecified Status: Chronic Assessment and Plan: Follows with Dr. Jamison outpatient, attempted to call and give update per patient request. previously stable platelets, 37 at admission will hold anticoagulation (4) Pyuria: Code(s): R82.81 - Pyuria Status: Acute Assessment and Plan: UA showed pyuria without bacteria, no reflex to culture. Rocephin given, but will d/c for UTI purposes Trace ketones due to DM2 (5) Rash and nonspecific skin eruption: Code(s): R21 - Rash and other nonspecific skin eruption Status: Acute Assessment and Plan: spreading of diffuse erythemic, warm rash starting 11/10 pm and spread throughout morning. 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 DM Type 2 holding metformin for now will monitor her BS start sliding scale insulin if needed 2. hypertension holding lisinopril for now due to liver, will monitor BP closely 3. hypothyroidism continue home levothyroxine Subjective Date/time seen: 08/18/23 15:28 Interval history: Patient is 58 YO female with PMH of liver cirrhosis, admitted from the ED with fatigue and fever, starting on Sunday. She has felt weakness in her legs for weeks, and she even fell at her home due to this. She does not check her BS regularly, but reports her A1C is good. She does have neuropathy which she takes gabapentin and diclofenac. She lives by herself. She denies any other symptoms of infection such as cough, SOB, chest pain, abdominal pain or urinary symptoms. She follows with Dr. Jamison for her low platelets, and does have a cylinder block mechanic who she follows for her cirrhosis diagnosis given in October. Her management has been close monitoring and at last follow up was stable. She denies leg swelling, N/V/diarrhea. Her UA showed WBCs in urine but no bacteria to culture. She has been started on antibiotic for treatment of UTI, and broadened to cover for possible appendicitis should that need to be ruled out. GI consulted and did not see need for further work up. Gen surg evaluated for enlarged appendix finding on CT, not concerned especially with clinical picture not presenting any correlating symptoms. Will
[2023-08-18 17:06] LABS: Glucose Point of Care 139 mg/dl (65-105)
[2023-08-18 20:00] VITALS: O2SAT 97
[2023-08-18 20:52] LABS: Glucose Point of Care 121 mg/dl (65-105)
[2023-08-18 21:48] VITALS: BP 121/57; PULSE 64; RESP 14; TEMP 37.3; O2SAT 97
[2023-08-18 23:59] VITALS: RESP 13
[2023-08-19] MEDS: ceFAZolin 1 GM/NS 50 ML 1 GM/50 ML BAG IVPB ×3 (01:53→17:08)
[2023-08-19] MEDS: LACTATED RINGERS 1,000 ML 100 ML IV CONT (01:53)
[2023-08-19] MEDS: LEVOTHYROXINE SODIUM 150 MCG TABLET PO (05:34)
[2023-08-19] MEDS: metroNIDAZOLE 500 MG/ISO 100ML 500 MG/100 ML BAG 100 MG IVPB (05:34)
[2023-08-19 05:45] VITALS: BP 120/64; PULSE 57; RESP 14; TEMP 36.1; O2SAT 97
[2023-08-19 07:42] LABS: Glucose Point of Care 118 mg/dl (65-105)
[2023-08-19 07:52] LABS: Hematocrit 30.2 % (37.0-47.0); Hemoglobin 10.3 g/dL (12.0-15.0); Immature Platelet Fraction Pct 8.3 % (0.9-11.2); Mean Corpuscular HGB Conc 34.1 g/dl (32-36); Mean Corpuscular Hemoglobin 32.3 pg (26-34); Mean Corpuscular Volume 94.7 fl (80-100); Mean Platelet Volume 11.1 fl (7.4-10.4); Platelet Count Result 50 k/mm3 (150-375); Red Blood Count 3.19 M/mm3 (4.2-5.4); Red Cell Distribution Width 14.8 % (11.5-14.5); White Blood Count 2.3 K/mm3 (4.5-10.0)
[2023-08-19 08:08] LABS: Alanine Aminotransferase 26 U/L (6-35); Albumin Level 2.8 g/dL (3.5-5.1); Alkaline Phosphatase 68 U/L (38-126); Anion Gap 7 mmol/L (8-16); Aspartate Amino Transferase 39 U/L (14-36); Bilirubin,Total 0.9 mg/dL (0.2-1.3); Blood Urea Nitrogen 8 mg/dL (7-17); Calcium 7.9 mg/dL (8.4-10.2); Carbon Dioxide 25 mmol/L (22-30); Chloride 101 mmol/L (98-107); Estimated CRCL calculation 129 ml/min; Estimated Glomerular Filt Rate > 60; Glucose 118 mg/dL (65-110); Potassium 3.3 mmol/L (3.4-5.0); Sodium 133 mmol/L (137-145)
[2023-08-19] MEDS: hydroCHLOROthiazide 12.5 MG CAPSULE PO (09:30)
[2023-08-19] MEDS: GABAPENTIN 300 MG CAPSULE PO ×2 (09:30→17:12)
[2023-08-19] MEDS: CHOLECALCIFEROL 1,000 UNITS TABLET 2000 UNITS PO (09:30)
[2023-08-19] MEDS: VENLAFAXINE HCL XR 75 MG CAP.ER.24H PO (09:30)
[2023-08-19 11:43] LABS: Rheumatoid Factor < 12.0 IU/ML (<12)
[2023-08-19 11:54] VITALS: O2SAT 96
--- NOTE | 2023-08-19 11:54 | P.PNIM_ITS ---
Progress Note: A&P Assessment and Plan (1) Fatigue: Code(s): R53.83 - Other fatigue Status: Acute Assessment and Plan: * Fever of unknown origin present at admission to ER, highest temp 103.2 on 08/17, has remained afebrile since -PRN available for fever * Fatigue and weakness of legs, likely due to subacute T12 and L3 compression fracture found on CT * PT and OT evaluating * Flu/covid negative * BC pending * IVF and supportive care (2) Cirrhosis of liver: Code(s): K74.60 - Unspecified cirrhosis of liver Status: Inactive Assessment and Plan: * CT abdomen and pelvis showed cirrhosis with portal hypertension with enlarged appendix that has increased in size from prior CT scan - indeterminate for appendicitis, not sure if this is due to ascites as patient has no pain, no rebound tenderness - WBC likely won't jump due to liver - will consider gen surg consult if clinically appropriate * broaden her antibiotic, to flagyl and ceftriaxone for time being until appendicitis is ruled out * GI/gen surg cleared at this time, watch and wait * Follows with power transformer repairer outpatient, has been monitoring closely * will hold metformin and lisinopril for the time being * hepatitis panel was negative (3) Thrombocytopenia: Code(s): D69.6 - Thrombocytopenia, unspecified Status: Chronic Assessment and Plan: * Follows with Dr. Jamison outpatient, attempted to call and give update per patient request. * previously stable platelets, 37 at admission * will hold anticoagulation (4) Pyuria: Code(s): R82.81 - Pyuria Status: Acute Assessment and Plan: * UA showed pyuria without bacteria, no reflex to culture. * Rocephin given, but will d/c for UTI purposes * Trace ketones due to DM2 (5) Rash and nonspecific skin eruption: Code(s): R21 - Rash and other nonspecific skin eruption Status: Acute Assessment and Plan: * spreading of diffuse erythemic, warm rash starting 11/10 pm and spread throughout morning. 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 DM Type 2 * holding metformin for now * will monitor her BS * start sliding scale insulin if needed 2. hypertension * holding lisinopril for now due to liver, will monitor BP closely 3. hypothyroidism * continue home levothyroxine Subjective Date/time seen: 08/19/23 11:54 Interval history: Patient is a 58 YO female with PMH of liver cirrhosis, admitted from the ED with fatigue and fever, starting on Sunday. She has felt weakness in her legs for weeks, and she even fell at her home due to this. She does not check her BS regularly, but reports her A1C is good. She does have neuropathy which she takes gabapentin and diclofenac. She lives by herself. She denies any other symptoms of infection such as cough, SOB, chest pain, abdominal pain or urinary symptoms. She follows with Dr. Jamison for her low platelets, and does have a power transformer repairer who she follows for her cirrhosis diagnosis given in October. Her management has been close monitoring and at last follow up w
--- NOTE | 2023-08-19 11:54 | PM.IMPN ---
Progress Note: A&P Assessment and Plan (1) Fatigue: Code(s): R53.83 - Other fatigue Status: Acute Assessment and Plan: Fever of unknown origin present at admission to ER, highest temp 103.2 on 08/17, has remained afebrile since -PRN available for fever Fatigue and weakness of legs, likely due to subacute T12 and L3 compression fracture found on CT PT and OT evaluating Flu/covid negative BC pending IVF and supportive care (2) Cirrhosis of liver: Code(s): K74.60 - Unspecified cirrhosis of liver Status: Inactive Assessment and Plan: CT abdomen and pelvis showed cirrhosis with portal hypertension with enlarged appendix that has increased in size from prior CT scan - indeterminate for appendicitis, not sure if this is due to ascites as patient has no pain, no rebound tenderness - WBC likely won't jump due to liver - will consider gen surg consult if clinically appropriate broaden her antibiotic, to flagyl and ceftriaxone for time being until appendicitis is ruled out GI/gen surg cleared at this time, watch and wait Follows with power superintendent outpatient, has been monitoring closely will hold metformin and lisinopril for the time being hepatitis panel was negative (3) Thrombocytopenia: Code(s): D69.6 - Thrombocytopenia, unspecified Status: Chronic Assessment and Plan: Follows with Dr. Jamison outpatient, attempted to call and give update per patient request. previously stable platelets, 37 at admission will hold anticoagulation (4) Pyuria: Code(s): R82.81 - Pyuria Status: Acute Assessment and Plan: UA showed pyuria without bacteria, no reflex to culture. Rocephin given, but will d/c for UTI purposes Trace ketones due to DM2 (5) Rash and nonspecific skin eruption: Code(s): R21 - Rash and other nonspecific skin eruption Status: Acute Assessment and Plan: spreading of diffuse erythemic, warm rash starting 11/10 pm and spread throughout morning. 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 DM Type 2 holding metformin for now will monitor her BS start sliding scale insulin if needed 2. hypertension holding lisinopril for now due to liver, will monitor BP closely 3. hypothyroidism continue home levothyroxine Subjective Date/time seen: 08/19/23 11:54 Interval history: Patient is a 58 YO female with PMH of liver cirrhosis, admitted from the ED with fatigue and fever, starting on Sunday. She has felt weakness in her legs for weeks, and she even fell at her home due to this. She does not check her BS regularly, but reports her A1C is good. She does have neuropathy which she takes gabapentin and diclofenac. She lives by herself. She denies any other symptoms of infection such as cough, SOB, chest pain, abdominal pain or urinary symptoms. She follows with Dr. Jamison for her low platelets, and does have a power superintendent who she follows for her cirrhosis diagnosis given in October. Her management has been close monitoring and at last follow up was stable. She denies leg swelling, N/V/diarrhea. Her UA showed WBCs in urine but no bacteria to culture. She has been started on antibiotic for treatment of UTI, and broadened to cover for possible appendicitis should that need to be ruled out. GI consulted and did not see need for further work up. Gen surg evaluated for enlarged appendix finding on CT, not concerned especially with clinical picture not presenting an
[2023-08-19 11:58] LABS: Glucose Point of Care 116 mg/dl (65-105)
[2023-08-19 12:18] LABS: Erythrocyte Sedimentation Rate 36 mm/hr (0-20)
[2023-08-19] MEDS: CALCIUM CARBONATE (OSCAL) 500 MG TABLET 600 MG PO (12:32)
[2023-08-19 13:38] LABS: Creatine Kinase 29 U/L (30-135)
[2023-08-19 14:00] VITALS: BP 122/62; PULSE 60; RESP 16; TEMP 36.2; O2SAT 95
[2023-08-19 16:31] LABS: Glucose Point of Care 164 mg/dl (65-105)
[2023-08-19 20:00] VITALS: O2SAT 98
[2023-08-19 20:41] LABS: Glucose Point of Care 112 mg/dl (65-105)
[2023-08-19 21:28] VITALS: BP 106/56; PULSE 57; RESP 12; TEMP 36.9; O2SAT 98
[2023-08-19 22:00] VITALS: RESP 15
[2023-08-20 01:51] VITALS: RESP 17
[2023-08-20] MEDS: ceFAZolin 1 GM/NS 50 ML 1 GM/50 ML BAG IVPB (02:41)
[2023-08-20] MEDS: LEVOTHYROXINE SODIUM 150 MCG TABLET PO (05:38)
[2023-08-20 06:00] VITALS: BP 113/52; PULSE 52; RESP 14; TEMP 36.1; O2SAT 97
[2023-08-20 06:26] LABS: Hematocrit 30.3 % (37.0-47.0); Hemoglobin 10.4 g/dL (12.0-15.0); Mean Corpuscular HGB Conc 34.3 g/dl (32-36); Mean Corpuscular Hemoglobin 32.4 pg (26-34); Mean Corpuscular Volume 94.4 fl (80-100); Mean Platelet Volume 10.6 fl (7.4-10.4); Platelet Count Result 60 k/mm3 (150-375); Red Blood Count 3.21 M/mm3 (4.2-5.4); Red Cell Distribution Width 14.8 % (11.5-14.5); White Blood Count 2.1 K/mm3 (4.5-10.0)
[2023-08-20 06:38] LABS: Alanine Aminotransferase 25 U/L (6-35); Albumin Level 2.8 g/dL (3.5-5.1); Alkaline Phosphatase 70 U/L (38-126); Anion Gap 7 mmol/L (8-16); Aspartate Amino Transferase 39 U/L (14-36); Bilirubin,Total 0.8 mg/dL (0.2-1.3); Blood Urea Nitrogen 7 mg/dL (7-17); Calcium 8.1 mg/dL (8.4-10.2); Carbon Dioxide 26 mmol/L (22-30); Chloride 101 mmol/L (98-107); Estimated CRCL calculation 129 ml/min; Estimated Glomerular Filt Rate > 60; Glucose 122 mg/dL (65-110); Potassium 3.4 mmol/L (3.4-5.0); Sodium 134 mmol/L (137-145)
[2023-08-20 07:38] LABS: Glucose Point of Care 124 mg/dl (65-105)
[2023-08-20] MEDS: CHOLECALCIFEROL 1,000 UNITS TABLET 2000 UNITS PO (08:12)
[2023-08-20] MEDS: hydroCHLOROthiazide 12.5 MG CAPSULE PO (08:12)
[2023-08-20] MEDS: GABAPENTIN 300 MG CAPSULE PO (08:13)
[2023-08-20] MEDS: VENLAFAXINE HCL XR 75 MG CAP.ER.24H PO (08:13)
[2023-08-20 09:28] VITALS: O2SAT 95
--- NOTE | 2023-08-20 10:57 | PM.DS ---
DS: Admitting Diagnosis Discharge Date 08/20/23 Admitting Diagnosis fatigue, fever of unknown origin DS: Discharge Diagnosis Discharge Diagnosis (1) Fatigue: Code(s): R53.83 - Other fatigue Status: Acute Assessment and Plan: Fever of unknown origin present at admission to ER, highest temp 103.2 on 08/17, has remained afebrile since Fatigue and weakness of legs, likely due to subacute T12 and L3 compression fracture found on CT PT and OT evaluating - would benefit continuing outpatient; encouraged to follow up with PCP Flu/covid negative BC pending - will follow up after d/c (2) Cirrhosis of liver: Code(s): K74.60 - Unspecified cirrhosis of liver Status: Chronic Assessment and Plan: CT abdomen and pelvis showed cirrhosis with portal hypertension with enlarged appendix that has increased in size from prior CT scan -GI/gen surg cleared at this time, watch and wait d/c antibiotics prior to d/c Follows with it security manager outpatient, has been monitoring closely resume home meds, liver enzymes improving hepatitis panel was negative (3) Thrombocytopenia: Code(s): D69.6 - Thrombocytopenia, unspecified Status: Chronic Assessment and Plan: Follows with Dr. Jamison outpatient, attempted to call and give update per patient request. previously stable platelets, 37 at admission, now 60 today at d/c anticoagulation held (4) Pyuria: Code(s): R82.81 - Pyuria Status: Acute Assessment and Plan: UA showed pyuria without bacteria, no reflex to culture. Rocephin given, but d/c for UTI purposes Trace ketones due to DM2 (5) Rash and nonspecific skin eruption: Code(s): R21 - Rash and other nonspecific skin eruption Status: Acute Assessment and Plan: spreading of diffuse erythemic, warm rash starting 11/10 pm and spread throughout morning. non-purulent, no open wound source marked with marker to monitor growth, much improved with time and/or antibiotic therapy. Redness, edema markedly decreased. transition to PO Bactrim for D/C on 10 day course, follow up with PCP rash does not present as typical cellulitis, non-itching or painful previous rash was also preceded by fever of unknown origin, will treat as atypical cellulitis as it is responding to time and/or AB DS: Summary Hospital Course Hospital Course: Patient is a 58 YO female with PMH of liver cirrhosis, admitted from the ED with fatigue and fever, starting on Sunday. She has felt weakness in her legs for weeks, and she even fell at her home due to this. She does not check her BS regularly, but reports her A1C is good. She does have neuropathy which she takes gabapentin and diclofenac. She lives by herself. She denies any other symptoms of infection such as cough, SOB, chest pain, abdominal pain or urinary symptoms. She follows with Dr. Jamison for her low platelets, and does have a it security manager who she follows for her cirrhosis diagnosis given in October. Her management has been close monitoring and at last follow up was stable. She denies leg swelling, N/V/diarrhea. Her UA showed WBCs in urine but no bacteria to culture. She was started on antibiotic for treatment of UTI, and broadened to cover for possible appendicitis should that need to be ruled out. GI consulted and did not see need for further work up. Gen surg evaluated for enlarged appendix finding on CT, not concerned especially with clinical picture not presenting any correlating symptoms. She continues to have no symptoms of appendicitis, no recurrent fever or abdominal pain. Antibiotics subsequently d/c without worsening of condition. Her widespread rash on the lower back and buttocks into her crack has continued to recede and improve in appearance. It appears non-edematous, and less erythematous. Patient denies any pain or itching. No injury prior or while here in hospital. I cannot find any source or open wounds. There
--- NOTE | 2023-08-23 09:29 | PC.NURSE ---
Blood cultures are negative.
== END 2023-08-20 11:30 | disposition home or self-care (01) | DRG 603 ==
LOC: ANHED 17:57 → ANH3MEDSUR 22:48
PROVIDERS: Emergency Medicine; Admitting Provider Student in an Organized Health Care Education/Training Program; Emergency Provider Student in an Organized Health Care Education/Training Program; Visit Provider Nurse Practitioner
DX: L03.312 Cellulitis of back [any part except buttock and flank] (principal); L03.317 Cellulitis of buttock; K76.6 Portal hypertension; F32.1 Major depressive disorder, single episode, moderate; K75.81 Nonalcoholic steatohepatitis (NASH); K74.60 Unspecified cirrhosis of liver; D69.6 Thrombocytopenia, unspecified; I10 Essential (primary) hypertension; E03.9 Hypothyroidism, unspecified; E11.9 Type 2 diabetes mellitus without complications; R21 Rash and other nonspecific skin eruption; M54.40 Lumbago with sciatica, unspecified side; G47.33 Obstructive sleep apnea (adult) (pediatric); W19.XXXD Unspecified fall, subsequent encounter; Z20.822 Contact with and (suspected) exposure to COVID-19; S22.089D Unspecified fracture of T11-T12 vertebra, subsequent encounter for fracture with routine healing; S32.039D Unspecified fracture of third lumbar vertebra, subsequent encounter for fracture with routine healing; Z80.0 Family history of malignant neoplasm of digestive organs
CPT/HCPCS: 36415; 71045; 72148; 74177; 76705; 80048; 80053; 80074; 80076; 81001; 82550; 82948; 83605; 83690; 85025; 85027; 85055; 85610; 85652; 85730; 86140; 86430; 87040; 87635; 96361; 96365; 96367; 96375; 97110; 97116; 97161; 99285; A9270; G0378; J0690; J0696; J1836; J1885; J7030; J7120; Q9967

== ENCOUNTER → 2023-10-23 15:33 | Outpatient (CLI) | payer BC, SELFPAY ==
--- NOTE | ~2023-10-23 | MM_ITS ---
EXAMINATION: MM screening william BI w stefano HISTORY: Screening TECHNIQUE: Craniocaudal and mediolateral oblique 3-D tomosynthesis images were obtained and synthetic 2-D images were generated. CAD analysis was submitted and interpreted. COMPARISON: Comparison to multiple prior studies sequentially, with oldest reviewed study dated 06/22. BREAST PARENCHYMAL COMPOSITION: There are scattered areas of fibroglandular density. FINDINGS: There is no evidence of suspicious mass, calcification, or architectural distortion to sugg est malignancy in either breast. There has been no suspicious interval change. IMPRESSION: 1. No mammographic evidence of malignancy. 2. Recommend routine screening mammography in one year. BI-RADS Category 1: Negative Reviewed, dictated and finalized at location A. LAINT INVESTIGATOR
== END ==
PROVIDERS: PCP Internal Medicine; Visit Provider Internal Medicine
DX: Z12.31 Encounter for screening mammogram for malignant neoplasm of breast (principal); E03.9 Hypothyroidism, unspecified; Z13.820 Encounter for screening for osteoporosis
CPT/HCPCS: 77063; 77067

== ENCOUNTER 2024-02-05 10:10 | Outpatient (CLI) | payer BC, SELFPAY ==
[2024-02-05 10:21] LABS: Basophils Percent Auto 1.2 % (0.2-1.2); Eosinophils Absolute Auto 0.1 K/mm3 (0-0.3); Eosinophils Percent Auto 3.1 % (0-4.4); Hematocrit 39.5 % (37.0-47.0); Hemoglobin 13.4 g/dL (12.0-15.0); Immature Granulocyte Absolute 0.01 K/mm3 (0.00-0.031); Immature Granulocyte Percent A 0.3 % (0-0.5); Lymphocytes Absolute Auto 0.95 K/mm3 (0.9-3.2); Lymphocytes Percent Auto 29.5 % (18.3-44.2); Mean Corpuscular HGB Conc 33.9 g/dl (32-36); Mean Corpuscular Hemoglobin 31.5 pg (26-34); Mean Corpuscular Volume 92.7 fl (80-100); Mean Platelet Volume 9.6 fl (7.4-10.4); Monocytes Absolute Auto 0.4 K/mm3 (0.1-0.6); Monocytes Percent Auto 11.2 % (2.6-8.5); Neutrophils Absolute Auto 1.8 K/mm3 (1.3-6.7); Neutrophils Percent Auto 54.7 % (45.5-73.1); Platelet Count Result 83 k/mm3 (150-375); Red Blood Count 4.26 M/mm3 (4.2-5.4); Red Cell Distribution Width 14.5 % (11.5-14.5); White Blood Count 3.2 K/mm3 (4.5-10.0)
[2024-02-05 10:25] LABS: Blood Urea Nitrogen 5 mg/dL (8-26); Carbon Dioxide 27 mmol/L (22-30); Chloride 100 mmol/L (98-109); Estimated Glomerular Filt Rate > 60; Glucose 112 mg/dL (70-105); Ionized Calcium (POC) 1.15 mmol/L (1.11-1.31); Potassium 4.2 mmol/L (3.5-4.9); Sodium 138 mmol/L (138-146)
[2024-02-05 12:08] LABS: Alanine Aminotransferase 29 U/L (6-35); Albumin Level 3.8 g/dL (3.5-5.1); Alkaline Phosphatase 112 U/L (38-126); Anion Gap 7 mmol/L (4-12); Aspartate Amino Transferase 49 U/L (14-36); Bilirubin,Total 1.9 mg/dL (0.2-1.3); Blood Urea Nitrogen 7 mg/dL (7-17); Calcium 8.7 mg/dL (8.4-10.2); Carbon Dioxide 25 mmol/L (22-30); Chloride 105 mmol/L (98-107); Estimated Glomerular Filt Rate > 60; Glucose 114 mg/dL (65-110); Potassium 4.2 mmol/L (3.4-5.0); Sodium 137 mmol/L (137-145)
== END 2024-02-05 10:11 | disposition home or self-care (01) ==
LOC: ANHLAB 10:11
PROVIDERS: PCP Internal Medicine; Visit Provider Internal Medicine Hematology & Oncology
DX: D69.59 Other secondary thrombocytopenia (principal)
CPT/HCPCS: 36415; 80047; 80053; 85025

== ENCOUNTER 2024-07-29 09:38 | Outpatient (CLI) | payer BC, SELFPAY ==
[2024-07-29 09:51] LABS: Basophils Percent Auto 0.6 % (0.2-1.2); Eosinophils Absolute Auto 0.1 K/mm3 (0-0.3); Eosinophils Percent Auto 3.7 % (0-4.4); Hematocrit 38.8 % (37.0-47.0); Hemoglobin 13.3 g/dL (12.0-15.0); Immature Granulocyte Absolute 0.01 K/mm3 (0.00-0.031); Immature Granulocyte Percent A 0.3 % (0-0.5); Mean Corpuscular HGB Conc 34.3 g/dl (32-36); Mean Corpuscular Volume 93.3 fl (80-100); Mean Platelet Volume 9.2 fl (7.4-10.4); Monocytes Absolute Auto 0.4 K/mm3 (0.1-0.6); Monocytes Percent Auto 11.5 % (2.6-8.5); Neutrophils Absolute Auto 1.7 K/mm3 (1.3-6.7); Neutrophils Percent Auto 52.9 % (45.5-73.1); Platelet Count Result 72 k/mm3 (150-375); Red Blood Count 4.16 M/mm3 (4.2-5.4); Red Cell Distribution Width 14.2 % (11.5-14.5); White Blood Count 3.2 K/mm3 (4.5-10.0)
[2024-07-29 10:02] LABS: Blood Urea Nitrogen 8 mg/dL (8-26); Carbon Dioxide 27 mmol/L (22-30); Chloride 100 mmol/L (98-109); Estimated Glomerular Filt Rate > 60; Glucose 138 mg/dL (70-105); Ionized Calcium (POC) 1.16 mmol/L (1.11-1.31); Potassium 4.2 mmol/L (3.5-4.9); Sodium 139 mmol/L (138-146)
[2024-07-29 10:21] LABS: Alanine Aminotransferase 22 U/L (6-35); Albumin Level 3.6 g/dL (3.5-5.1); Alkaline Phosphatase 122 U/L (38-126); Anion Gap 6 mmol/L (4-12); Aspartate Amino Transferase 39 U/L (14-36); Bilirubin,Total 1.9 mg/dL (0.2-1.3); Blood Urea Nitrogen 10 mg/dL (7-17); Calcium 8.8 mg/dL (8.4-10.2); Carbon Dioxide 30 mmol/L (22-30); Chloride 101 mmol/L (98-107); Estimated Glomerular Filt Rate > 60; Glucose 145 mg/dL (65-110); Potassium 4.2 mmol/L (3.4-5.0); Sodium 137 mmol/L (137-145)
== END 2024-07-29 09:39 | disposition home or self-care (01) ==
LOC: ANHLAB 09:39
PROVIDERS: PCP Internal Medicine; Visit Provider Internal Medicine Hematology & Oncology
DX: D69.59 Other secondary thrombocytopenia (principal)
CPT/HCPCS: 36415; 80047; 80053; 85025

== ENCOUNTER 2024-09-23 13:57 | Inpatient (IN) | payer BC, SELFPAY ==
[2024-09-23] VITALS (13 sets, daily range): BP systolic 145–160; BP diastolic 71–83; PULSE 59–90; RESP 14–30; TEMP 36.4–36.7; O2SAT 96–98; BMI 42.0
--- NOTE | ~2024-09-23 | CT_ITS ---
EXAMINATION: CT abdomen pelvis w con DATE: 09/27/2024 13:29 INDICATION: Abnormal liver function tests. Lung mass. TECHNIQUE: Computed tomography (CT) of the abdomen and pelvis was performed with 100 mL Omnipaque 350 intravenous contrast. Automated exposure control and iterative reconstruction technique were employe d. The dose-length product was 1671.16 mGy-cm. COMPARISON: Chest CT 09/23/2024, CT abdomen and pelvis 08/16/2023 FINDINGS: The visualized portions of lung bases demonstrate a large right pleural effusion. There is dependent atelectasis on the right. The heart size is normal. No pericardial effusion. Paraesophageal varices are noted. The liver demonstrates surface nodularity, consistent with cirrhosis. There is an 8 mm cyst in the liver. There are changes of cholecystectomy. The spleen is mildly enlarged. The woods creas and adrenal glands are normal. There is cortical thinning of the kidneys. There is a 10 mm cyst in right kidney. There are no dilated loops of bowel. The appendix is normal. There is trace perihep atic ascites. There is edema of the intra-abdominal fat. There is mild periportal lymphadenopathy, li poornima reactive. There is a chronic compression fracture of T12. There is a chronic burst fracture of L 2. IMPRESSION: 1. Large right pleural effusion with interval improvement. 2. Cirrhosis of the liver with portal venous hypertension. 3. Mild periportal lymphadenopathy, likely reactive. Reviewed, dictated and finalized at location A. CAL GLASS WET INSPECTOR
--- NOTE | ~2024-09-23 | XR_ITS ---
EXAMINATION: XR chest 2V DATE: 09/23/2024 15:21 INDICATION: Shortness of breath TECHNIQUE: PA and lateral views of the chest were obtained. COMPARISON: Chest radiograph dated 08/26/2023 FINDINGS: Unilateral large right pleural effusion with opacification of the caudal half the right hemithorax. O pacities in the right middle and upper lung zones which could represent associated atelectasis or pne umonia. Left lung remains clear. No pneumothorax or left-sided pleural effusion. The right pleural ef fusion obscures the right heart border. The visualized portions of the cardia mediastinal silhouette is normal. Mild thoracic spondylosis. IMPRESSION: 1. Atelectasis and/or pneumonia in the right lung along side a large lateral right pleural effusion. Consider diagnostic/therapeutic thoracentesis. Reviewed, dictated and finalized at location A. TZ MOUNTER IMPRESSION: 1. Atelectasis and/or pneumonia in the right lung along side a large lateral ri ght pleural effusion. Consider diagnostic/therapeutic thoracentesis.
--- NOTE | ~2024-09-23 | US_ITS ---
EXAMINATION: US thoracentesis DATE: 09/23/2024 19:14 INDICATION: Right pleural effusion TECHNIQUE: The procedure and its risks and benefits were discussed with the patient. Potential risks discussed included bleeding, infection, and pneumothorax. The patient understood the risks and agreed to proceed. The skin was prepped and draped in sterile fashion. 1% lidocaine was used for local anes thesia. Under ultrasound guidance, a 5 Fr catheter with trochar was advanced into the right pleural e ffusion. Fluid was aspirated. The catheter was removed, and a dressing was applied. There were no imm ediate complications. FINDINGS: Ultrasound images demonstrate a large right pleural effusion and the catheter within the fluid. IMPRESSION: 1. Successful ultrasound-guided thoracentesis yielding 1000 mL of yellowish fluid. Reviewed, dictated and finalized at location A. LATORY AFFAIRS COORDINATOR IMPRESSION: 1. Successful ultrasound-guided thoracentesis yielding 1000 mL of yellowish fl uid.
--- NOTE | ~2024-09-23 | XR_ITS ---
Clinical Indication: Thoracentesis, diffusion PA and lateral views of the chest: Comparison: 09/23/2024 Findings: Moderate right pleural effusion present with probable right basilar atelectasis. There is a 4.6 cm ovoid opacity at the right upper lobe, similar to prior exam. Left lung clear.. Cardiomedias tinal silhouette is within normal limits. Bones and soft tissues are unremarkable. Impression: Moderate right pleural effusion with probable right basilar atelectasis. 4.6 cm right upper lobe pulmonary mass. Correlate with recent biopsy results. Reviewed, dictated and finalized at [facility]. R COATER Impression: Moderate right pleural effusion with probable right basilar atelectasis. 4.6 cm right upper lobe pulmonary mass. Correlate with recent biopsy results.
--- NOTE | ~2024-09-23 | CT_ITS ---
EXAMINATION: CT biopsy lung w/imaging DATE: 09/26/2024 15:11 INDICATION: Right upper lobe mass TECHNIQUE: The procedure including the risks and benefits was discussed with the patient. Risks discu ssed included infection, approximately 1/20 risk of symptomatic hemorrhage beyond mild hemoptysis, ap proximately 1/3 risk of pneumothorax, and approximately 1/10 risk of pneumothorax severe enough to wa rrant chest tube placement. The patient understood the risks and agreed to proceed. The patient was p laced supine. The skin overlying the anterior right chest was prepped and draped in sterile fashion. Anesthetic was administered with 1% lidocaine subcutaneously. A 19 gauge outer needle was advanced under CT guidance to the lesion of interest. A 20 gauge core biopsy needle was then used to obtain 5 core biopsy specimens. The needle was removed and the entry site was cleaned and dressed. There wer e no immediate complications. The dose-length product was 181.18 mGy-cm. FINDINGS: CT images demonstrate the outer needle tip adjacent to a 3.8 x 3.6 cm lobular right upper l obe mass. There is a large right pleural effusion. IMPRESSION: 1. Successful CT-guided biopsy of a 3.8 cm right upper lobe mass which is concerning for primary bron chogenic carcinoma. 2. Large right pleural effusion. Reviewed, dictated and finalized at location A. HIP PASTOR IMPRESSION: 1. Successful CT-guided biopsy of a 3.8 cm right upper lobe mass which is khris rning for primary bronchogenic carcinoma. 2. Large right pleural effusion.
--- NOTE | ~2024-09-23 | XR_ITS ---
EXAMINATION: [id number]_[id number]_CR DATE: 09/23/2024 18:29 INDICATION: Right pleural effusion status post thoracentesis. TECHNIQUE: A single frontal view of the chest was obtained. COMPARISON: Chest 2 views 09/23/2024 FINDINGS: There is a large right pleural effusion. There is a mass in right lung upper lobe. There ar e airspace opacities at right lung base, likely atelectasis. No pneumothorax. The heart size is mary l. IMPRESSION: 1. Mass in right lung upper lobe, consistent with primary bronchogenic carcinoma. 2. Large pleural effusion with improvement status post thoracentesis. Reviewed, dictated and finalized at location A. STYLIST IMPRESSION: 1. Mass in right lung upper lobe, consistent with primary bronchogenic carcinom a. 2. Large pleural effusion with improvement status post thoracentesis.
--- NOTE | ~2024-09-23 | XR_ITS ---
EXAMINATION: XR chest 1V DATE: 09/26/2024 14:55 INDICATION: Status post percutaneous right lung biopsy. TECHNIQUE: frontal view of the chest was obtained. COMPARISON: Chest radiograph dated 09/26/2024 FINDINGS: Interval increase in size of a moderate to large right pleural effusion with fluid tracking along the minor fissure. Opacities in the right lower lung zone most likely secondary compressive atelectasis. Relatively well-defined margins to the biopsied 4.1 x 3.2 cm right upper lobe mass with no evident p ulmonary hemorrhage. No pneumothorax. Left lung is clear with no airspace opacities, pulmonary edema or pleural effusion. Heart size is normal. IMPRESSION: 1. No pneumothorax post percutaneous biopsy of a 4 x 3 cm right upper lobe mass which is concerning f or primary prevention carcinoma. 2. Moderate to large right pleural effusion which has increased in size since the prior postthoracent esis chest radiograph but remains smaller than the initial admission radiograph on 09/23/2024. Reviewed, dictated and finalized at location A. ATTACHER IMPRESSION: 1. No pneumothorax post percutaneous biopsy of a 4 x 3 cm right upper lobe mass which is concerning for primary prevention carcinoma. 2. Moderate to large right pleural effusion which has increased in size since t he prior postthoracentesis chest radiograph but remains smaller than the initia l admission radiograph on 09/23/2024.
--- NOTE | ~2024-09-23 | XR_ITS ---
XR chest 1V portable 09/26/2024 16:05 Indication: Post image guided biopsy Procedure: AP portable chest Comparison: Comparison to multiple prior studies sequentially, with oldest reviewed study dated 09/07. Findings: No pneumothorax identified post biopsy. Right upper lobe mass reidentified, suspicious for bronchogenic carcinoma. There is right pleural effusion with ill-defined airspace disease in the right lung base, likely atel ectasis. Impression: 1: No pneumothorax. 2: Right upper lobe mass, concerning for bronchogenic carcinoma. 3: Moderate right pleural effusion. Reviewed, dictated and finalized at location B. ATTACHER Impression: 1: No pneumothorax. 2: Right upper lobe mass, concerning for bronchogenic carcinoma. 3: Moderate right pleural effusion.
--- NOTE | ~2024-09-23 | CT_ITS ---
EXAMINATION: CTA chest PE protocol DATE: 09/23/2024 16:34 INDICATION: Shortness of breath. TECHNIQUE: Computed tomography angiography (CTA) of the chest was performed with 100 mL Omnipaque-350 intravenous contrast timed to evaluate the pulmonary arteries. Coronal maximum intensity projection 3D-reconstructions were created by the technologist. Automated exposure control and iterative reconst ruction technique were employed. The dose-length product was 1174.90 mGy-cm. COMPARISON: Chest CT 10/08/2022 FINDINGS: There is a right large right pleural effusion. There is a 4.1 x 3.3 cm mass in right lung u pper lobe. There is leftward shift of the mediastinum. The thyroid is enlarged. The heart size is nor mal. No pericardial effusion. There is mediastinal lymphadenopathy. For example, a right paratracheal node measures 2.6 x 1.3 cm. There is no pulmonary embolus. There is liver surface nodularity, consis tent with cirrhosis. There is a 9 mm cyst in the liver. There are changes of cholecystectomy. Splenom egaly is noted. Perihepatic ascites is noted. Paraesophageal varices are noted. There is mild peripor debbie lymphadenopathy, likely reactive. There is mild thoracic spondylosis. There is a chronic compress ion fracture of T12. There is a chronic burst fracture of L2. IMPRESSION: 1. 4.1 x 3.3 cm mass in right lung upper lobe, consistent with primary bronchogenic carcinoma. 2. Large right pleural effusion with leftward shift of the mediastinum. Thoracentesis is recommended. 3. Mediastinal lymphadenopathy suspicious for metastatic disease. 4. Cirrhosis of the liver with portal venous hypertension. 5. Ascites. 6. No pulmonary embolus. Reviewed, dictated and finalized at location A. COMMISSIONER IMPRESSION: 1. 4.1 x 3.3 cm mass in right lung upper lobe, consistent with primary bronchog enic carcinoma. 2. Large right pleural effusion with leftward shift of the mediastinum. Thorace ntesis is recommended. 3. Mediastinal lymphadenopathy suspicious for metastatic disease. 4. Cirrhosis of the liver with portal venous hypertension. 5. Ascites. 6. No pulmonary embolus.
--- NOTE | ~2024-09-23 | XR_ITS ---
EXAMINATION: XR chest 1V portable DATE: 09/26/2024 18:05 INDICATION: Right lung mass status post percutaneous biopsy. TECHNIQUE: A single frontal view of the chest was obtained. COMPARISON: Chest single view at 3:49 PM FINDINGS: There is a small right pleural effusion. There are airspace opacities in right mid and lowe r lung zones, likely atelectasis. There is a 4 cm mass in right lung upper lobe. No pneumothorax. The heart size is normal. IMPRESSION: 1. 4 cm mass in right lung upper lobe suspicious for primary bronchogenic carcinoma. 2. Stable small right pleural effusion. 3. Stable airspace opacities in right mid and lower lung zones, likely atelectasis. Reviewed, dictated and finalized at location A. R SUBSTRATE TESTER IMPRESSION: 1. 4 cm mass in right lung upper lobe suspicious for primary bronchogenic carci noma. 2. Stable small right pleural effusion. 3. Stable airspace opacities in right mid and lower lung zones, likely atelecta sis.
--- NOTE | 2024-09-23 14:59 | ECG_ITS ---
Test Date: 2024-09-23 15:05:09 Measurements Intervals [place] Rate: 65 P: -14 IL: 119 QRS: 3 QRSD: 94 T: 45 QT: 444 QTc: 464 Interpretive Statements SINUS RHYTHM WITH SHORT [place] INTERVAL LOW QRS VOLTAGE IN PRECORDIAL LEADS [QRS DEFLECTION < 1.0 mV IN CHEST LEADS] MODERATE ST DEPRESSION [0.05+ mV ST DEPRESSION] No previous ECG available for comparison Electronically Signed On 09-23-2024 16:22:08 DIRECTOR OF STAFF DEVELOPMENT by Charla Gonzalez M.D.
[2024-09-23 15:23] LABS: Hematocrit 39.9 % (37.0-47.0); Immature Platelet Fraction Pct 3.3 % (0.9-11.2); Mean Corpuscular HGB Conc 35.1 g/dl (32-36); Mean Corpuscular Hemoglobin 32.2 pg (26-34); Mean Corpuscular Volume 91.7 fl (80-100); Mean Platelet Volume 9.8 fl (7.4-10.4); Platelet Count Result 81 k/mm3 (150-375); Red Blood Count 4.35 M/mm3 (4.2-5.4); Red Cell Distribution Width 14.1 % (11.5-14.5); White Blood Count 3.5 K/mm3 (4.5-10.0)
--- NOTE | 2024-09-23 15:27 | ED_ITS ---
HPI - SOB/Dyspnea General Chief Complaint: Shortness of Breath/Dyspnea Stated Complaint: sob Time Seen by Provider: 09/23/24 15:00 Focused HPI: Patient is a 59-year-old female presents to the ER with complaints of shortness of breath for the past two weeks. She reports she has a history of bronchitis. Patient called her PCP earlier today who advised her to come in to the ER for evaluation. Patient reports she has had sick contacts recently because she has been around her co-workers. She denies any recent fevers, chest pain, or back pain. GENERAL: Well-appearing, well-nourished, and in no acute distress. HEAD: Normocephalic, atraumatic. CHEST: Clear to auscultation. ?No respiratory distress. HEART: Regular rate and rhythm.? NEURO: ?Alert and oriented x3. Patient screened in triage and initial orders placed.? ?Additional care and disposition to be based upon?diagnostic testing and treatment. Related Data Home Medications ?Medication ?Instructions ?Recorded ?Confirmed ?Last Taken ?Type levothyroxine 150 mcg tablet 150 mcg PO DAILY 11/04/19 08/17/23 08/17/23 History (Synthroid) cholecalciferol (vitamin D3) 50 50 mcg PO DAILY 09/27/21 08/17/23 08/16/23 History mcg (2,000 unit) capsule vcsfxtde-gfp-nccsc ac 400 1 tablet PO DAILY 09/27/21 08/17/23 08/16/23 History mcg-calcium carb 500 mg-vit K1 20 mcg tablet (Women's 50 Plus Multivitamin) diclofenac sodium 50 mg 50 mg PO BID joint pain 10/08/22 08/17/23 08/16/23 History tablet,delayed release calcium carbonate (Calcium 600) 600 mg PO DAILY 10/19/22 08/17/23 08/16/23 History cyclobenzaprine 10 mg tablet 10 mg DAILY PRN Muscle Pain 08/17/23 08/17/23 08/16/23 History gabapentin 300 mg capsule 300 mg PO BID 08/17/23 08/17/23 08/16/23 History tramadol 50 mg tablet 50 mg PO Q4-6H PRN joint pain 08/17/23 08/17/23 08/17/23 History Allergies Allergy/AdvReac Type Severity Reaction Status Date / Time No Known Allergies Allergy Mild Verified 08/16/23 14:35 [facility] Past Medical History Medical History (Updated 08/20/23 @ 11:04 by Natasha Kong, SOFTWARE IMPLEMENTATION PROJECT MANAGER) Cirrhosis of liver Diabetes Type 2 diabetes mellitus Family history of colon cancer Hypothyroid Anxiety Essential hypertension Moderate single current episode of major depressive disorder Obstructive sleep apnea syndrome Surgical History Surgical History S/P tonsillectomy and adenoidectomy History of ear surgery History of eye surgery Hx of elbow surgery [place] teeth removed History of cholecystectomy Family History Family History Mother Hypertension Diabetes mellitus Lung cancer Father Hypertension Diabetes mellitus Myelodysplasia (myelodysplastic syndrome) Sibling Colorectal cancer, stage III Social History Social History Social History: the patient lives home alone. she is single. she has no children. She works for [employer]. code status full code Smoking status: Never smoker Second hand tobacco smoke exposure: No Alcohol intake: never Alcohol use details: rarely Substance use: never Substance use type: does not use Lack of Transportation: No Lack of Food: Never True Current Housing: I Have Housing Concerned About Future Housing: No Difficulty Paying Gas/Electric Bills: No Difficulty Paying for Meds: No Currently Unemployed: No Education: Associate Degree Difficulty w/ Childcare or Family Care: No Living arrangements: alone Gender identity (if verbalized by the patient): Female Spiritual care concerns: No Course Vital Signs Vital signs: Vital Signs Temperature 36.4 C L 09/23/24 14:11 Pulse Rate 67 09/23/24 14:11 Respiratory Rate 27 H 09/23/24 14:11 Blood Pressure 148/79 H 09/23/24 14:11 Pulse Oximetry 96 09/23/24 14:11 Oxygen Delivery Room Air 09/23/24 14:11 Temperature 36.4 C L 09/23/24 14:11 Pulse Rate 67 09/23/24 14:11 Respiratory Rate 27 H 09/23/24 14:11 Blood Pressure 148/79 H 09/23/24 14:11 Pulse Oximetry 96 09/23/24 14:11 Oxygen Delivery Room Air 09/23/24 14:11 MDM - SOB/Dyspnea Lab Data 09/23/24 15:14 09/23/24 15:14 Labs: Lab Results 09/23/24 Range/Units 15:14 WBC Pending RBC Pending Hgb Pending Hct Pending MCV Pending MCH Pending MCHC Pending RDW Pending Plt Count Pending MPV Pending Immature Gran % (Auto) Pending Neut % (Auto) Pending Lymph % (Auto) Pending Real % (Auto) Pending Eos % (Auto) Pending Baso % (Auto) Pending Lymph # (Auto) Pending Real # (Auto) Pending Eos # (Auto) Pending Baso # (Auto) Pending Abs Immat Gran (auto) Pending Absolute Neuts (auto) Pending Absolute Nucleated RBC Pending Nucleated RBC % Pending Sodium Pending Potassium Pending Chloride Pending Carbon Dioxide Pending Anion Gap Pending BUN Pending Creatinine Pending Estim Creat Clear Calc Pending Estimated GFR Pending Glucose Pending Calcium Pending Total Bilirubin Pending AST Pending ALT Pending Alkaline Phosphatase Pending Total Protein Pending Albumin Pending Discharge Plan Discharge Patient Language: Portuguese Prescriptions: No Action levothyroxine [Synthroid] 150 mcg tablet 150 mcg PO DAILY cholecalciferol (vitamin D3) 50 mcg (2,000 unit) capsule 50 mcg PO DAILY Women's 50 Plus Multivitamin 400 mcg-500 mg calcium-20 mcg tablet 1 tablet PO DAILY calcium carbonate [Calcium 600] 600 mg calcium (1,500 mg) tablet 600 mg PO DAILY diclofenac sodium 50 mg tablet,delayed release (DR/EC) 50 mg PO BID cyclobenzaprine 10 mg tablet 10 mg DAILY PRN (Reason: Muscle Pain) tramadol 50 mg tablet 50 mg PO Q4-6H PRN (Reason: joint pain) gabapentin 300 mg capsule 300 mg PO BID sulfamethoxazole-trimethoprim 800-160 mg tablet 1 tablet PO Q12H 10 Days Qty: 20 0RF metformin 500 mg tablet 500 mg PO BID Qty: 180 3RF lisinopril-hydrochlorothiazide 10-12.5 mg tablet 1 tablet PO DAILY Qty: 90 3RF venlafaxine 75 mg capsule,extended release 24hr 75 mg PO DAILY Qty: 90 1RF Follow-up/Referrals: Willy,MD Karissa [Primary Care Provider] -
[2024-09-23 15:32] LABS: Alanine Aminotransferase 22 U/L (6-35); Albumin Level 3.9 g/dL (3.5-5.1); Alkaline Phosphatase 121 U/L (38-126); Anion Gap 5 mmol/L (4-12); Aspartate Amino Transferase 43 U/L (14-36); Blood Urea Nitrogen 8 mg/dL (7-17); Calcium 8.7 mg/dL (8.4-10.2); Carbon Dioxide 27 mmol/L (22-30); Chloride 103 mmol/L (98-107); Estimated CRCL calculation 124 ml/min; Estimated Glomerular Filt Rate > 60; Glucose 148 mg/dL (65-110); Potassium 3.7 mmol/L (3.4-5.0); Sodium 135 mmol/L (137-145)
[2024-09-23 16:09] LABS: Lactic Acid Reflex 2.2 mmol/L (0.7-2.0); Magnesium 1.8 mg/dL (1.6-2.3)
[2024-09-23 16:10] LABS: INR 1.2; Prothrombin Time 15.6 Seconds (11.1-14.7)
[2024-09-23 16:11] LABS: Partial Thromboplastin Time 34.1 Seconds (22.3-36.8)
[2024-09-23 16:21] LABS: NT Pro B Type Natriuretic Pept 91 pg/mL (19.9-100); Troponin I < 0.012 ng/mL (0.000-0.034)
[2024-09-23 16:21] LABS: Anisocytosis 2+; Band Neutrophils Percent 0 % (0-6); Basophils Percent Manual 0 % (0-1); Eosinophils Absolute Manual 0.03 K/mm3 (0.02-0.50); Eosinophils Percent Manual 1 % (0-4); Giant Platelets Present; Large Platelets Present; Lymphocytes Absolute Manual 0.59 K/mm3 (1.1-4.5); Lymphocytes Percent Manual 17 % (18-44); Monocytes Percent Manual 3 % (3-9); Neutrophils Absolute Manual 1.01 K/mm3 (1.7-7.2); Neutrophils Percent Manual 29 % (46-73); Platelet Estimate Decreased (Adequate); Total Cells Counted 50
[2024-09-23 16:22] LABS: Atypical Lymphocytes Present; Ovalocytes 1+; Schistocytes None Seen
[2024-09-23 16:23] LABS: Smudge Cells PRESENT
--- NOTE | 2024-09-23 17:13 | ED.GENADULT ---
HPI - General Adult General Chief complaint: Shortness of Breath/Dyspnea Stated complaint: sob Time Seen by Provider: 09/23/24 15:00 History of Present Illness HPI narrative: Focused HPI: Patient is a 59-year-old female presents to the ER with complaints of shortness of breath for the past two weeks. She reports she has a history of bronchitis. Patient called her PCP earlier today who advised her to come in to the ER for evaluation. Patient reports she has had sick contacts recently because she has been around her co-workers. She denies any recent fevers, chest pain, or back pain. GENERAL: Well-appearing, well-nourished, and in no acute distress. HEAD: Normocephalic, atraumatic. CHEST: Clear to auscultation. ?No respiratory distress. HEART: Regular rate and rhythm.? NEURO: ?Alert and oriented x3. Patient screened in triage and initial orders placed.? ?Additional care and disposition to be based upon?diagnostic testing and treatment. Related Data Home Medications ?Medication ?Instructions ?Recorded ?Confirmed ?Last Taken ?Type levothyroxine 150 mcg tablet 150 mcg PO DAILY 11/04/19 08/17/23 08/17/23 History (Synthroid) cholecalciferol (vitamin D3) 50 50 mcg PO DAILY 09/27/21 08/17/23 08/16/23 History mcg (2,000 unit) capsule sgppjmbf-lqj-qufua ac 400 1 tablet PO DAILY 09/27/21 08/17/23 08/16/23 History mcg-calcium carb 500 mg-vit K1 20 mcg tablet (Women's 50 Plus Multivitamin) diclofenac sodium 50 mg 50 mg PO BID joint pain 10/08/22 08/17/23 08/16/23 History tablet,delayed release calcium carbonate (Calcium 600) 600 mg PO DAILY 10/19/22 08/17/23 08/16/23 History cyclobenzaprine 10 mg tablet 10 mg DAILY PRN Muscle Pain 08/17/23 08/17/23 08/16/23 History gabapentin 300 mg capsule 300 mg PO BID 08/17/23 08/17/23 08/16/23 History tramadol 50 mg tablet 50 mg PO Q4-6H PRN joint pain 08/17/23 08/17/23 08/17/23 History Allergies Allergy/AdvReac Type Severity Reaction Status Date / Time No Known Allergies Allergy Mild Verified 08/16/23 14:35 [facility] Past Medical History Medical History Cirrhosis of liver Diabetes Type 2 diabetes mellitus Family history of colon cancer Hypothyroid Anxiety Essential hypertension Moderate single current episode of major depressive disorder Obstructive sleep apnea syndrome Surgical History Surgical History S/P tonsillectomy and adenoidectomy History of ear surgery History of eye surgery Hx of elbow surgery [place] teeth removed History of cholecystectomy Family History Family History Mother Hypertension Diabetes mellitus Lung cancer Father Hypertension Diabetes mellitus Myelodysplasia (myelodysplastic syndrome) Sibling Colorectal cancer, stage III Social History Social History Social History: the patient lives home alone. she is single. she has no children. She works for [employer]. code status full code Smoking status: Never smoker Second hand tobacco smoke exposure: No Alcohol intake: never Alcohol use details: rarely Substance use: never Substance use type: does not use Lack of Transportation: No Lack of Food: Never True Current Housing: I Have Housing Concerned About Future Housing: No Difficulty Paying Gas/Electric Bills: No Difficulty Paying for Meds: No Currently Unemployed: No Education: Associate Degree Difficulty w/ Childcare or Family Care: No Living arrangements: alone Gender identity (if verbalized by the patient): Female Spiritual care concerns: No Exam Narrative: APPEARANCE: No apparent distress. Head: atraumatic. EYES: EOMI, NOSE: Atraumatic NECK: Trachea midline RESPIRATORY: Absent lung sounds in the right lower lobe, rest the lungs are clear with no wheezing or rhonchi CARDIOVASCULAR: RRR, no peripheral edema ABDOMINAL: Non-distended soft nontender no guarding rebound MUSCULOSKELETAl: No obvious deformities NEURO: Alert. Moving 4/4 extremities SKIN:: Warm, dry. Normal color PSYCHIATRIC: Normal affect Course Vital Signs Vital signs: Vital Signs Temperature 97.5 F L 09/23/24 14:11 Pulse Rate 67 09/23/24 14:11 Respiratory Rate 27 H 09/23/24 14:11 Blood Pressure 148/79 H 09/23/24 14:11 Pulse Oximetry 96 09/23/24 14:11 Oxygen Delivery Room Air 09/23/24 14:11 Temperature 97.5 F L 09/23/24 14:11 Pulse Rate 67 09/23/24 14:11 Respiratory Rate 27 H 09/23/24 14:11 Blood Pressure 148/79 H 09/23/24 14:11 Pulse Oximetry 96 09/23/24 14:11 Oxygen Delivery Room Air 09/23/24 14:11 Medical Decision Making MDM Narrative Medical decision making narrative: -Course: 59-year-old female presenting with progressive shortness of breath. Large pleural effusion with a 4 cm mass concerning for bronchogenic carcinoma. diagnostic and therapeutic tap will be performed by IR. Patient will be admitted to the hospital for further management -DDX includes but is not limited to: CHF COPD pneumonia viral syndrome neoplasm cirrhosis -Co-morbidities complicating care: liver cirrhosis -Independent interpretation of studies: labs and imaging reviewed white count 3.5, platelets 81, INR 1.2 Independent EKG interpretation: Rhythm [sinus], Rate [65], Silver -[normal], GA -[normal], QRS [narrow], QTC [normal], T waves -[negative for concerning inversions], ST Segments - [Negative for concerning elevations] Final interpretations: [Normal Sinus Rhythm] -Discussion of Management/Consultants: [place]ilah -Shared decision making / Disposition: admitted. Vital Signs Vital Signs: Vital Signs Temperature 97.5 F L 09/23/24 14:11 Pulse Rate 67 09/23/24 14:11 Respiratory Rate 27 H 09/23/24 14:11 Blood Pressure 148/79 H 09/23/24 14:11 Pulse Oximetry 96 09/23/24 14:11 Oxygen Delivery Room Air 09/23/24 14:11 Temperature 97.5 F L 09/23/24 14:11 Pulse Rate 67 09/23/24 14:11 Respiratory Rate 27 H 09/23/24 14:11 Blood Pressure 148/79 H 09/23/24 14:11 Pulse Oximetry 96 09/23/24 14:11 Oxygen Delivery Room Air 09/23/24 14:11 Lab Data 09/23/24 15:14 09/23/24 15:14 Labs: Lab Results 09/23/24 09/23/24 09/23/24 Range/Units 15:14 15:52 15:52 WBC 3.5 L (4.5-10.0) K/mm3 RBC 4.35 (4.2-5.4) M/mm3 Hgb 14.0 (12.0-15.0) g/dL Hct 39.9 (37.0-47.0) % MCV 91.7 (80-100) fl MCH 32.2 (26-34) pg MCHC 35.1 (32-36) g/dl RDW 14.1 (11.5-14.5) % Plt Count 81 L (150-375) k/mm3 MPV 9.8 (7.4-10.4) fl Immature Gran % (Auto) Not Reportable Neut % (Auto) Not Reportable Lymph % (Auto) Not Reportable [place] % (Auto) Not Reportable Eos % (Auto) Not Reportable Baso % (Auto) Not Reportable Lymph # (Auto) Not Reportable [place] # (Auto) Not Reportable Eos # (Auto) Not Reportable Baso # (Auto) Not Reportable Abs Immat Gran (auto) Not Reportable Absolute Neuts (auto) Not Reportable Absolute Nucleated RBC Not Reportable Total Counted 50 Neutrophils % (Manual) 29 L (46-73) % Band Neutrophils % 0 (0-6) % Lymphocytes % (Manual) 17 L (18-44) % Monocytes % (Manual) 3 (3-9) % Eosinophils % (Manual) 1 (0-4) % Basophils % (Manual) 0 (0-1) % Nucleated RBC % Not Reportable Abs Neuts (Manual) 1.01 L (1.7-7.2) K/mm3 Abs Lymphs (Manual) 0.59 L (1.1-4.5) K/mm3 Abs Monocytes (Manual) 0.10 (0.1-0.90) K/mm3 Absolute Eos (Manual) 0.03 (0.02-0.50) K/mm3 Abs Basophils (Manual) 0.00 (0.0-0.1) K/mm3 Atypical Lymphocytes Present Smudge Cells Present Platelet Estimate Decreased (Adequate) Large Platelets Present Giant Platelets Present % Immature Plt Fraction 3.3 (0.9-11.2) % Anisocytosis 2+ Ovalocytes 1+ Schistocytes None seen PT 15.6 H (11.1-14.7) Seconds INR 1.2 APTT 34.1 (22.3-36.8) Seconds Sodium 135 L (137-145) mmol/L Potassium 3.7 (3.4-5.0) mmol/L Chloride 103 (98-107) mmol/L Carbon Dioxide 27 (22-30) mmol/L Anion Gap 5 (4-12) mmol/L BUN 8 (7-17) mg/dL Creatinine 0.60 L (0.7-1.0) mg/dL Estim Creat Clear Calc 124 ml/min Estimated GFR > 60 (59 - ) Glucose 148 H (65-110) mg/dL Lactic Acid 2.2 H (0.7-2.0) mmol/L Calcium 8.7 (8.4-10.2) mg/dL Magnesium 1.8 (1.6-2.3) mg/dL Total Bilirubin 2.0 H (0.2-1.3) mg/dL AST 43 H (14-36) U/L ALT 22 (6-35) U/L Alkaline Phosphatase 121 (38-126) U/L Troponin I < 0.012 (0.000-0.034) ng/mL NT-Pro-B Natriuret Pep Cancelled 91 Total Protein 8.0 (6.3-8.2) g/dL Albumin 3.9 (3.5-5.1) g/dL Discharge Plan Discharge Clinical Impression: Pleural effusion, Thrombocytopenia, Dyspnea, Neoplasm Patient Disposition: Still a Patient Condition: Stable Patient Language: Setswana Prescriptions: No Action levothyroxine [Synthroid] 150 mcg tablet 150 mcg PO DAILY cholecalciferol (vitamin D3) 50 mcg (2,000 unit) capsule 50 mcg PO DAILY Women's 50 Plus Multivitamin 400 mcg-500 mg calcium-20 mcg tablet 1 tablet PO DAILY calcium carbonate [Calcium 600] 600 mg calcium (1,500 mg) tablet 600 mg PO DAILY diclofenac sodium 50 mg tablet,delayed release (DR/EC) 50 mg PO BID cyclobenzaprine 10 mg tablet 10 mg DAILY PRN (Reason: Muscle Pain) tramadol 50 mg tablet 50 mg PO Q4-6H PRN (Reason: joint pain) gabapentin 300 mg capsule 300 mg PO BID sulfamethoxazole-trimethoprim 800-160 mg tablet 1 tablet PO Q12H 10 Days Qty: 20 0RF metformin 500 mg tablet 500 mg PO BID Qty: 180 3RF lisinopril-hydrochlorothiazide 10-12.5 mg tablet 1 tablet PO DAILY Qty: 90 3RF venlafaxine 75 mg capsule,extended release 24hr 75 mg PO DAILY Qty: 90 1RF Follow-up/Referrals: Willy,MD Karissa [Primary Care Provider] -
--- NOTE | 2024-09-23 17:25 | P.HP_ITS ---
H&P: HPI History of Present Illness Date/Time: 09/23/24 17:25 Chief Complaint: Shortness of breath. 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 The patient provides the following history. She has been feeling short of breath with exertion for awhile now but it has become quite noticeable over the past 2 weeks. Last night she had difficulties sleeping because she was increasingly short of breath when lying flat and she felt as though she could not get in a good deep breath. Her boss had pneumonia recently and she called her doctor's office to make an appointment and she was instead referred to the ED. She has an occasional, nonproductive cough. She is otherwise feeling okay and denies weight loss, fever, chills, sinus congestion, sore throat, chest pain, pleuritic pain, palpitations, hemoptysis, nausea, vomiting, diarrhea, edema, and calf pain. In the ED: Vital signs were stable on arrival. Labs were significant for WBC count 3.5, hemoglobin 14.0, platelets 81, INR 1.2, lactic acid 2.2, sodium 135, potassium 3.7, BUN, creatinine 0.60, glucose 148. Chest x-ray showed a large right-sided pleural effusion as subsequent chest CT showed a 4.1 x 3.3 cm mass in the right upper lobe consistent with primary bronchogenic carcinoma and the large right pleural effusion with leftward shift of the mediastinum, mediastinal lymphadenopathy suspicious for metastatic disease, cirrhosis of the liver, and ascites. She is being admitted for diagnostic thoracentesis. She is a lifelong nonsmoker. She has a strong family history of cancer including a sister with colorectal and thyroid cancer, mother with lung cancer at an advanced age, and a niece who was recently diagnosed with cancer. Review of Systems Review of Systems: 12 systems were reviewed and are negativ e except for as per HPI. [facility] Past Medical History Medical History (Updated 09/23/24 @ 19:18 by Adriana Bernal PA-C) Depression Hypothyroidism Cirrhosis of liver Type 2 diabetes mellitus Anxiety Essential hypertension Obstructive sleep apnea syndrome Surgical History Surgical History (Updated 09/23/24 @ 22:17 by Adriana Bernal PA-C) History of open reduction and internal fixation (ORIF) procedure repair of left elbow fracture History of laser assisted in situ keratomileusis History of wisdom tooth extraction History of tonsillectomy and adenoidectomy History of ear surgery repair of right auditory canal and tympanic membrane History of cholecystectomy Family History Family History (Updated 09/23/24 @ 19:43 by Sarah Nunez RN) Mother Diabetes mellitus Lung cancer Hypertension Afib Pacemaker Father Diabetes mellitus Myelodysplasia (myelodysplastic syndrome) Hypertension Sibling Thyroid cancer Colorectal cancer, stage III Other Breast cancer Social History Social History (Updated 09/23/24 @ 22:18 by Adriana Bernal PA-C) Social History: Surrogate medical decision maker: Erendiraadriana Goodman (sister) or Elisa Guan (niece). Code status: Full code. Smoking status: Never smoker Second hand tobacco smoke exposure: No Alcohol intake: never Substance use: never Substance use type: does not use Do You Feel Safe in your Home?: Yes Lack of Transportation: No Lack of Food: Never True Current Housing: I Have Housing Concerned About Future Housing: No Difficulty Paying Gas/Electric Bills: No Difficulty Paying for Meds: No Currently Unemployed: No Education: Associate Degree Difficulty w/ Childcare or Family Care: No Spiritual care concerns: No Meds Home Medications and Allergies Home Medications ?Medication ?Instructions ?Recorded ?Confirmed ?Type levothyroxine 150 mcg tablet 150 mcg PO DAILY 11/04/19 09/23/24 History (Synthroid) cholecalciferol (vitamin D3) 50 50 mcg PO DAILY 09/27/21 09/23/24 History mcg (2,000 unit) capsule diclofenac sodium 50 mg 50 mg PO BID PRN joint pain 10/08/22 09/23/24 History tablet,delayed release calcium carbonate (Calcium 600) 600 mg PO DAILY 10/19/22 09/23/24 History lisinopril 10 1 tablet PO DAILY #90 tabs 02/07/23 09/23/24 Rx mg-hydrochlorothiazide 12.5 mg tablet gabapentin 300 mg capsule 300 mg PO DAILY 08/17/23 09/23/24 History cetirizine 10 mg tablet 10 mg PO DAILY 09/23/24 09/23/24 History levothyroxine 175 mcg tablet 175 mcg PO DAILY 09/23/24 09/23/24 History (Unithroid) nadolol 20 mg tablet 20 mg PO HS 09/23/24 09/23/24 History venlafaxine 75 mg capsule,extended 75 mg PO HS 09/23/24 09/23/24 History release 24 hr Allergies Allergy/AdvReac Type Severity Reaction Status Date / Time No Known Allergies Allergy Mild Verified 09/23/24 19:28 Vital Signs Vital Signs - 24 hr 09/23/24 14:11 Temperature 97.5 F L Pulse Rate 67 Respiratory Rate 27 H Blood Pressure 148/79 H Pulse Oximetry 96 Oxygen Delivery Room Air Exam Narrative: General: Well-developed, nontoxic-appearing female in the semi-Wall position in bed. Weight: 132.7 kg. BMI: 42. HEENT: PERRL, EOMI. Sclera anicteric. Oral mucosa moist. Neck: Supple. Exam limited due to neck circumference. No obvious lymphadenopathy. Respiratory: Occasional dry cough. Respirations are nonlabored and she is speaking in full sentences. Lung sounds are diminished on the right about half way up. Cardiovascular: Regular rate and rhythm with S1-S2. Gastrointestinal: Abdomen is soft, obese, nontender, and nondistended with positive bowel sounds. Skin: Warm and dry. Extremities: No cyanosis, clubbing, or edema. Radial and pedal pulses intact. Neurological: Alert. Cranial nerves 2-12 are grossly intact. No gross focal deficits to casual conversation. Psychiatric: Pleasant and cooperative with normal mood and affect. Judgment and insight intact. H&P: Results Labs Labs: Short CBC 09/23/24 Range/Units 15:14 WBC 3.5 L (4.5-10.0) K/mm3 Hgb 14.0 (12.0-15.0) g/dL Hct 39.9 (37.0-47.0) % Plt Count 81 L (150-375) k/mm3 BMP 09/23/24 15:14 Sodium 135 L Potassium 3.7 Chloride 103 Carbon Dioxide 27 BUN 8 Creatinine 0.60 L Glucose 148 H Calcium 8.7 Cardiac Enzymes 09/23/24 Range/Units 15:52 Troponin I < 0.012 (0.000-0.034) ng/mL Liver Function 09/23/24 Range/Units 15:14 Total Bilirubin 2.0 H (0.2-1.3) mg/dL AST 43 H (14-36) U/L ALT 22 (6-35) U/L Alkaline Phosphatase 121 (38-126) U/L Albumin 3.9 (3.5-5.1) g/dL Impressions Chest X-Ray 09/23/24 15:32 IMPRESSION: 1. Atelectasis and/or pneumonia in the right lung along side a large lateral right pleural effusion. Chest CTA 09/23/24 16:37 IMPRESSION: 1. 4.1 x 3.3 cm mass in right lung upper lobe, consistent with primary bronchogenic carcinoma. 2. Large right pleural effusion with leftward shift of the mediastinum. Thoracentesis is recommended. 3. Mediastinal lymphadenopathy suspicious for metastatic disease. 4. Cirrhosis of the liver with portal venous hypertension. 5. Ascites. 6. No pulmonary embolus. Assessment and Plan Assessment and plan (1) Pleural effusion, right: Code(s): J90 - Pleural effusion, not elsewhere classified Status: Acute (2) Mass of upper lobe of right lung: Code(s): R91.8 - Other nonspecific abnormal finding of lung field Status: Acute (3) Cirrhosis of liver: Code(s): K74.60 - Unspecified cirrhosis of liver Status: Chronic (4) Hypothyroidism: Code(s): E03.9 - Hypothyroidism, unspecified Status: Acute (5) Obstructive sleep apnea syndrome: Code(s): G47.33 - Obstructive sleep apnea (adult) (pediatric) Status: Acute (6) Thrombocytopenia: Code(s): D69.6 - Thrombocytopenia, unspecified Status: Chronic (7) Type 2 diabetes mellitus: Code(s): E11.9 - Type 2 diabetes mellitus without complications Status: Acute Plan The patient presented to the emergency department for evaluation of shortness of breath over the last 2 weeks as detailed in HPI. Review CT scan showed a right upper lobe mass and pleural effusion with findings concerning for primary bronchogenic carcinoma with possible metastatic disease to the lymph nodes. Diagnostic paracentesis has been ordered. Depending on those results, she may need a biopsy of the mass which will defer to Oncology. She does see Dr. Jamison in the office regarding her thrombocytopenia and he has been consulted. Thrombocytopenia is stable. Vital signs were reviewed and they are stable. CPAP will be provided for the patient to use while hospitalized. Continue levothyroxine and check TSH. Diabetes is diet controlled with a reported recent hemoglobin A1c of 5.1%. Her home medications will be reviewed and resumed as appropriate. Findings and treatment plan were discussed with the patient. Questions were solicited and answered to satisfaction. The patient's medical management will be taken over by the hospitalist team in a.m. Quality VTE Prophylaxis VTE prophylaxis: mechanical ordered If No VTE Prophylaxis Answer both mechanical and pharmacologic: Reason no pharmacologic proph: medical contraindication (pending thoracentesis) Hospitalist MIPS Advance Care Plan I have confirmed that the patient's Advanced Care Plan is present, code status is documented, or surrogate decision maker is listed in patient medical record.: Yes Medication Reconciliation I have utilized all available resources to obtain, update and review the patients current medications (includes all prescriptions, OTC, herbals, cannabis, and nutritional supplements).: Yes
[2024-09-23 17:29] LABS: INR 1.2; Prothrombin Time 15.5 Seconds (11.1-14.7)
[2024-09-23] MEDS: diazePAM INJ (*CRX) 10 MG/2 ML SYRINGE 5 MG IV PUSH (18:03)
[2024-09-23 18:53] LABS: pH Pleural Fluid > 0.000 (7.210-7.500)
[2024-09-23 18:56] LABS: Reflex Lactic Acid Yes or No Add Lactic
--- NOTE | 2024-09-23 19:35 | PC.NURSE ---
Patient states that she has hearing deficits, no hearing aids. Patient states it is preferred that people converse with her while facing her so that she is able to read lips to enhance communication and that she struggles to understand conversations if masks are worn.
--- NOTE | 2024-09-23 19:59 | PC.NURSE ---
Admissions report to PHIL Zimmer.
--- NOTE | 2024-09-23 20:03 | ADMGEN ---
This patient, Lindsey Doherty, was admitted to [facility] Surg Room 314-01 at 20:03. Patient/family oriented to hospital policies and general routines including ID bracelet, bed and alarms, visiting hours, pain management, procedures, bathroom and other care routines, personal items, smoking policy, room service/diet, and visiting hours. Information on how to activate the Rapid Response Team has been discussed. Patient/Family are encouraged to report perceived risks to care and to ask questions if they do not understand what they are told or what they should do.
[2024-09-23 20:04] LABS: Appearance Pleural Fluid Clear (Clear); Color Pleural Fluid Yellow (Colorless); Pleural fluid source Pleural fluid
[2024-09-23 20:15] LABS: Nucleated Cell Pleural Fluid 1000 /uL (0-1000)
[2024-09-23 20:21] LABS: Lymphocytes Pleural Fluid 65 %
[2024-09-23 20:22] LABS: Mesothelial Cells Pleural Flui 10 %; Monocytes Pleural Fluid 17 %
[2024-09-23 20:27] LABS: Triglycerides 108 mg/dL (<150)
[2024-09-23 20:54] LABS: Glucose Point of Care 143 mg/dl (65-105)
[2024-09-23] MEDS: VENLAFAXINE HCL XR 75 MG CAP.ER.24H PO (23:20)
[2024-09-23] MEDS: nadoloL 20 MG TABLET PO (23:20)
[2024-09-23 23:24] LABS: Albumin Level 3.8 g/dL (3.5-5.1); Amylase 57 U/L (30-110); Bilirubin,Total 1.8 mg/dL (0.2-1.3); Cholesterol 152 mg/dL (0-200); Glucose 198 mg/dL (65-110); Lactate Dehydrogenase 250 U/L (120-246)
[2024-09-24 01:29] LABS: Add Urine Microscopic? YES; Appearance Urine Clear (Clear); Bacteria Urine None Seen /hpf; Bilirubin Urine Negative (Negative); Blood Urine Trace (Negative); Color Urine Yellow (Yellow); Glucose Urine UA Negative (Negative); Ketones Urine Negative (Negative); Leukocyte Esterase Ur 1+ LEU/UL (Negative); Nitrate Urine Negative (Negative); Non Pathogenic Casts 0-2; Protein Urine Negative (Negative); Specific Grav Ur 1.043 (1.001-1.035); Squamous Epithelial Cell Urine None Seen /hpf (Few)
[2024-09-24] MEDS: LEVOTHYROXINE SODIUM 75 MCG TABLET PO (05:07)
[2024-09-24] MEDS: LEVOTHYROXINE SODIUM 100 MCG TABLET PO (05:07)
--- NOTE | 2024-09-24 05:09 | PC.NURSE ---
pt did not tolerate our CPAP last night, she states the mask and settings felt different than at home and it was too difficult to breathe. pt denies need for o2 in the room, and states as long as she has her HOB elevated she is okay. pt educated as well as informed that she can have someone bring her home CPAP tonight if she stays another night
[2024-09-24 05:36] VITALS: BP 133/54; PULSE 54; RESP 12; TEMP 36.6; O2SAT 95
[2024-09-24 07:04] LABS: Basophils Percent Auto 1.1 % (0.2-1.2); Eosinophils Absolute Auto 0.1 K/mm3 (0-0.3); Eosinophils Percent Auto 2.9 % (0-4.4); Hematocrit 36.5 % (37.0-47.0); Hemoglobin 12.3 g/dL (12.0-15.0); Immature Granulocyte Absolute 0.01 K/mm3 (0.00-0.031); Immature Granulocyte Percent A 0.4 % (0-0.5); Immature Platelet Fraction Pct 3.4 % (0.9-11.2); Lymphocytes Absolute Auto 0.72 K/mm3 (0.9-3.2); Mean Corpuscular HGB Conc 33.7 g/dl (32-36); Mean Corpuscular Hemoglobin 31.6 pg (26-34); Mean Corpuscular Volume 93.8 fl (80-100); Mean Platelet Volume 10.2 fl (7.4-10.4); Monocytes Absolute Auto 0.5 K/mm3 (0.1-0.6); Neutrophils Absolute Auto 1.5 K/mm3 (1.3-6.7); Neutrophils Percent Auto 52.6 % (45.5-73.1); Platelet Count Result 67 k/mm3 (150-375); Red Blood Count 3.89 M/mm3 (4.2-5.4); Red Cell Distribution Width 14.1 % (11.5-14.5); White Blood Count 2.8 K/mm3 (4.5-10.0)
[2024-09-24 07:13] LABS: Alanine Aminotransferase 20 U/L (6-35); Albumin Level 3.1 g/dL (3.5-5.1); Alkaline Phosphatase 112 U/L (38-126); Anion Gap 0 mmol/L (4-12); Aspartate Amino Transferase 41 U/L (14-36); Bilirubin,Total 1.8 mg/dL (0.2-1.3); Blood Urea Nitrogen 8 mg/dL (7-17); Calcium 8.3 mg/dL (8.4-10.2); Carbon Dioxide 31 mmol/L (22-30); Chloride 104 mmol/L (98-107); Estimated CRCL calculation 110 ml/min; Estimated Glomerular Filt Rate > 60; Glucose 125 mg/dL (65-110); Magnesium 1.8 mg/dL (1.6-2.3); Potassium 4.2 mmol/L (3.4-5.0); Sodium 135 mmol/L (137-145)
[2024-09-24 07:25] LABS: Anisocytosis 1+; Platelet Estimate Decreased (Adequate); Schistocytes None Seen
[2024-09-24 07:39] LABS: Glucose Point of Care 160 mg/dl (65-105)
[2024-09-24] MEDS: GABAPENTIN 300 MG CAPSULE PO (08:07)
[2024-09-24] MEDS: CHOLECALCIFEROL 1,000 UNITS TABLET 2000 UNITS PO (08:07)
[2024-09-24] MEDS: hydroCHLOROthiazide 12.5 MG CAPSULE PO (08:07)
[2024-09-24] MEDS: lisinopriL 10 MG TABLET PO (08:07)
[2024-09-24] MEDS: LORATADINE 10 MG TABLET PO (08:08)
[2024-09-24 08:25] VITALS: O2SAT 98
[2024-09-24] MEDS: CALCIUM CARBONATE (OSCAL) 500 MG TABLET PO (12:51)
[2024-09-24 13:01] LABS: Glucose Point of Care 139 mg/dl (65-105)
[2024-09-24 14:29] VITALS: BP 124/52; PULSE 54; RESP 16; TEMP 36.4; O2SAT 96
--- NOTE | 2024-09-24 15:27 | P.PNIM_ITS ---
Progress Note: A&P Assessment and Plan (1) Pleural effusion, right: Code(s): J90 - Pleural effusion, not elsewhere classified Status: Acute Assessment and Plan: * Status post Thoracentesis yesterday * Concern for malignant effusion * Awaiting Oncological consultation for development of biopsy and plan of treatment. (2) Mass of upper lobe of right lung: Code(s): R91.8 - Other nonspecific abnormal finding of lung field Status: Acute Assessment and Plan: * See #1 * Suspect Bronchogenic carcinoma (3) Cirrhosis of liver: Code(s): K74.60 - Unspecified cirrhosis of liver Status: Chronic Assessment and Plan: * Noted elevated Bilirubin. * Trend labs (4) Hypothyroidism: Code(s): E03.9 - Hypothyroidism, unspecified Status: Chronic Assessment and Plan: * Continue home meds (5) Obstructive sleep apnea syndrome: Code(s): G47.33 - Obstructive sleep apnea (adult) (pediatric) Status: Chronic Assessment and Plan: * Continue BiPap (6) Thrombocytopenia: Code(s): D69.6 - Thrombocytopenia, unspecified Status: Chronic Assessment and Plan: * Awaiting Dr. Jamison as she sees him regularly for chronic thrombocytopenia. * Monitor for s/s of bleeding * Monitor for trend with labs. (7) Type 2 diabetes mellitus: Code(s): E11.9 - Type 2 diabetes mellitus without complications Status: Chronic Assessment and Plan: * Continue SSI for coverage * Glycemic protocol. Time Spent With Patient Time with patient: 15 - 25 minutes Subjective Date/time seen: 09/24/24 15:27 Interval history: This pt was examined at the bedside today s/p thoracentesis yesterday for pulmonary effusion from large right lung mass. Currently awaiting Oncology consult and recommendations. She has no dyspnea or other acute complaints today. Pain is being managed appropriately. Review of Systems Review of Systems: All systems reviewed & are unremarkable except as noted in HPI and below Exam Narrative: General: Well-developed, nontoxic-appearing female in the semi-Wall position in bed. HEENT: PERRL, EOMI. Sclera anicteric. Oral mucosa moist. Neck: Supple. Exam limited due to neck circumference. No obvious lymphadenopathy. Respiratory: Respirations are nonlabored and she is speaking in full sentences. Decreased breath sounds in bases bilaterally Cardiovascular: Regular rate and rhythm with S1-S2. Gastrointestinal: Abdomen is soft, obese, nontender, and nondistended with positive bowel sounds. Skin: Warm and dry. Extremities: No cyanosis, clubbing, or edema. Radial and pedal pulses intact. Neurological: Alert. Cranial nerves 2-12 are grossly intact. No gross focal deficits to casual conversation. Psychiatric: Pleasant and cooperative with normal mood and affect. Judgment and insight intact. Objective Data Vital Signs Vital Signs: Vital Signs - 24 hr 09/23/24 16:05 09/23/24 16:21 09/23/24 16:48 Temperature Pulse Rate 64 66 63 Respiratory Rate 27 H 23 H 28 H Blood Pressure Pulse Oximetry 97 96 97 Oxygen Delivery 09/23/24 17:02 09/23/24 17:15 09/23/24 17:34 Temperature Pulse Rate 63 90 72 Respiratory Rate 19 26 H 23 H Blood Pressure Pulse Oximetry 98 97 Oxygen Delivery 09/23/24 17:45 09/23/24 17:45 09/23/24 17:46 Temperature Pulse Rate 69 69 71 Respiratory Rate 30 H 16 27 H Blood Pressure 145/83 H 145/83 H Pulse Oximetry 97 97 97 Oxygen Delivery 09/23/24 19:32 09/23/24 20:00 09/23/24 20:00 Temperature 98.0 F Pulse Rate 74 59 L Respiratory Rate 15 14 Blood Pressure 148/78 H 160/71 H Pulse Oximetry 96 97 Oxygen Delivery Room Air 09/23/24 21:28 09/23/24 23:10 09/24/24 05:36 Temperature 98.0 F 97.8 F Pulse Rate 59 L 60 54 L Respiratory Rate 14 19 12 Blood Pressure 160/71 H 133/54 L Pulse Oximetry 97 97 95 Oxygen Delivery Autopap 09/24/24 08:00 09/24/24 08:25 09/24/24 14:29 Temperature 97.6 F Pulse Rate 54 L Respiratory Rate 16 Blood Pressure 124/52 L Pulse Oximetry 98 96 Oxygen Delivery Room Air Room Air Intake/Output Intake/Output: Intake & Output 09/21/24 09/22/24 09/23/24 09/24/24 23:59 23:59 23:59 23:59 Intake Total 980 Output Total 1000 Balance -1000 980 Meds/Results Medications: Active Medications Generic Name Dose Route Start Last Admin Trade Name Freq PRN Reason Stop Dose Admin Acetaminophen 650 mg 09/23/24 19:22 Acetaminophen 325 Mg Tablet PO Q6H PRN Mild Pain (1-3) or Fever Calcium Carbonate 500 mg 09/24/24 12:00 09/24/24 12:51 Calcium Carbonate (Oscal) 500 Mg Tablet PO 500 mg DAILY@1200 CAROL Administration Dextrose 12.5 gm 09/23/24 19:22 Dextrose 50% 25 Gm/50 Ml Syringe IV PUSH PRN PRN Hypoglycemia Protocol Gabapentin 300 mg 09/24/24 09:00 09/24/24 08:07 Gabapentin 300 Mg Capsule PO 300 mg DAILY CAROL Administration Glucagon 1 mg 09/23/24 19:22 Glucagon For Inj 1 Mg Vial IM PRN PRN Hypoglycemia Protocol Glucose 15 gm 09/23/24 19:22 Glucose Oral Gel 15 Gm Of Glucse In 37.5 Gm Tube PO PRN PRN Hypoglycemia Protocol Hydrochlorothiazide 12.5 mg 09/24/24 09:00 09/24/24 08:07 Hydrochlorothiazide 12.5 Mg Capsule PO 12.5 mg QAM CAROL Administration Dextrose 1,000 mls @ 100 mls/hr 09/23/24 19:22 Dextrose 5% 1,000 Ml IVPB PRN PRN Hypoglycemia Protocol Insulin Aspart 2 - 5 units 09/24/24 08:00 09/24/24 12:52 Insulin Aspart (*Bkc) 100 Units/Ml SUB-Q Not Given TIDWM [facility] Protocol Insulin Aspart 1 - 2 units 09/23/24 21:00 09/23/24 22:01 Insulin Aspart (*Bkc) 100 Units/Ml SUB-Q Not Given HS [facility] Protocol Levothyroxine Sodium 75 mcg 09/24/24 06:30 09/24/24 05:07 Levothyroxine Sodium 75 Mcg Tablet PO 75 mcg DAILY@0630 CAROL Administration Levothyroxine Sodium 100 mcg 09/24/24 06:30 09/24/24 05:07 Levothyroxine Sodium 100 Mcg Tablet PO 100 mcg DAILY@0630 CAROL Administration Lisinopril 10 mg 09/24/24 09:00 09/24/24 08:07 Lisinopril 10 Mg Tablet PO 10 mg QAM CAROL Administration Loratadine 10 mg 09/24/24 09:00 09/24/24 08:08 Loratadine 10 Mg Tablet PO 10 mg QAM CAROL Administration Nadolol 20 mg 09/23/24 22:25 09/23/24 23:20 Nadolol 20 Mg Tablet PO 20 mg HS CAROL Administration Ondansetron HCl 4 mg 09/23/24 19:22 Ondansetron Inj 4 Mg/2 Ml Vial IV PUSH Q6H PRN Nausea And Vomiting Venlafaxine HCl 75 mg 09/23/24 22:25 09/23/24 23:20 Venlafaxine Hcl Xr 75 Mg Cap.Er.24h PO 75 mg HS CAROL Administration Vitamin D 2,000 units 09/24/24 09:00 09/24/24 08:07 Cholecalciferol 1,000 Units Tablet PO 2,000 units DAILY CAROL Administration Radiology Results: ITS Impressions Chest CTA 09/23/24 16:37 IMPRESSION: 1. 4.1 x 3.3 cm mass in right lung upper lobe, consistent with primary bronchogenic carcinoma. 2. Large right pleural effusion with leftward shift of the mediastinum. Thoracentesis is recommended. 3. Mediastinal lymphadenopathy suspicious for metastatic disease. 4. Cirrhosis of the liver with portal venous hypertension. 5. Ascites. 6. No pulmonary embolus. Chest X-Ray 09/23/24 18:32 IMPRESSION: 1. Mass in right lung upper lobe, consistent with primary bronchogenic carcinoma. 2. Large pleural effusion with improvement status post thoracentesis. Thoracentesis Ultrasound 09/24/24 09:01 IMPRESSION: 1. Successful ultrasound-guided thoracentesis yielding 1000 mL of yellowish fluid. Labs Labs: Laboratory Results - last 24 hr 09/23/24 09/23/24 09/23/24 15:14 15:51 15:52 WBC 3.5 L RBC 4.35 Hgb 14.0 Hct 39.9 MCV 91.7 MCH 32.2 MCHC 35.1 RDW 14.1 Plt Count 81 L MPV 9.8 Immature Gran % (Auto) Not Reportable Neut % (Auto) Not Reportable Lymph % (Auto) Not Reportable Ashley % (Auto) Not Reportable Eos % (Auto) Not Reportable Baso % (Auto) Not Reportable Lymph # (Auto) Not Reportable Ashley # (Auto) Not Reportable Eos # (Auto) Not Reportable Baso # (Auto) Not Reportable Abs Immat Gran (auto) Not Reportable Absolute Neuts (auto) Not Reportable Absolute Nucleated RBC Not Reportable Total Counted 50 Neutrophils % (Manual) 29 L Band Neutrophils % 0 Lymphocytes % (Manual) 17 L Monocytes % (Manual) 3 Eosinophils % (Manual) 1 Basophils % (Manual) 0 Nucleated RBC % Not Reportable Abs Neuts (Manual) 1.01 L Abs Lymphs (Manual) 0.59 L Abs Monocytes (Manual) 0.10 Absolute Eos (Manual) 0.03 Abs Basophils (Manual) 0.00 Atypical Lymphocytes Present Smudge Cells Present Platelet Estimate Decreased Large Platelets Present Giant Platelets Present % Immature Plt Fraction 3.3 Anisocytosis 2+ Ovalocytes 1+ Schistocytes None seen PT 15.5 H 15.6 H INR 1.2 1.2 APTT 34.1 Sodium 135 L Potassium 3.7 Chloride 103 Carbon Dioxide 27 Anion Gap 5 BUN 8 Creatinine 0.60 L Estim Creat Clear Calc 124 Estimated GFR > 60 Glucose 148 H 198 H POC Capillary Glucose Hemoglobin A1c Cancelled Lactic Acid 2.2 H Calcium 8.7 Magnesium 1.8 Total Bilirubin 2.0 H 1.8 H AST 43 H ALT 22 Alkaline Phosphatase 121 Lactate Dehydrogenase 250 H Troponin I < 0.012 NT-Pro-B Natriuret Pep Cancelled Total Protein 8.0 7.0 Albumin 3.9 3.8 Triglycerides 108 Cholesterol 152 Amylase 57 TSH (Reflex) Urine Color Urine Appearance Urine pH Ur Specific [place] Urine Protein Urine Glucose (UA) Urine Ketones Ur Blood (Man) Urine Nitrate Urine Bilirubin Urine Urobilinogen Leukocyte Esterase Rfl Urine RBC Urine WBC Ur Squamous Epith Cells Urine Bacteria Urine Casts Pleural Fluid Source Pleural Color Pleural Appearance Pleural pH Pleural RBC Pleural Nuc Cells Pleural Neutrophils Pleural Lymphocytes Pleural Monocytes Pleural Mesothelial 09/23/24 09/23/24 09/23/24 15:52 18:25 20:52 WBC RBC Hgb Hct MCV MCH MCHC RDW Plt Count MPV Immature Gran % (Auto) Neut % (Auto) Lymph % (Auto) Ashley % (Auto) Eos % (Auto) Baso % (Auto) Lymph # (Auto) Ashley # (Auto) Eos # (Auto) Baso # (Auto) Abs Immat Gran (auto) Absolute Neuts (auto) Absolute Nucleated RBC Total Counted Neutrophils % (Manual) Band Neutrophils % Lymphocytes % (Manual) Monocytes % (Manual) Eosinophils % (Manual) Basophils % (Manual) Nucleated RBC % Abs Neuts (Manual) Abs Lymphs (Manual) Abs Monocytes (Manual) Absolute Eos (Manual) Abs Basophils (Manual) Atypical Lymphocytes Smudge Cells Platelet Estimate Large Platelets Giant Platelets % Immature Plt Fraction Anisocytosis Ovalocytes Schistocytes PT INR APTT Sodium Potassium Chloride Carbon Dioxide Anion Gap BUN Creatinine Estim Creat Clear Calc Estimated GFR Glucose POC Capillary Glucose 143 H Hemoglobin A1c Lactic Acid Calcium Magnesium Total Bilirubin AST ALT Alkaline Phosphatase Lactate Dehydrogenase Troponin I NT-Pro-B Natriuret Pep 91 Total Protein Albumin Triglycerides Cholesterol Amylase TSH (Reflex) Urine Color Urine Appearance Urine pH Ur Specific [place] Urine Protein Urine Glucose (UA) Urine Ketones Ur Blood (Man) Urine Nitrate Urine Bilirubin Urine Urobilinogen Leukocyte Esterase Rfl Urine RBC Urine WBC Ur Squamous Epith Cells Urine Bacteria Urine Casts Pleural Fluid Source Pleural fluid Pleural Color Yellow Pleural Appearance Clear Pleural pH > 0.000 L Pleural RBC 256 Pleural Nuc Cells 1000 Pleural Neutrophils 8 Pleural Lymphocytes 65 Pleural Monocytes 17 Pleural Mesothelial 10 09/24/24 09/24/24 09/24/24 01:15 06:18 07:33 WBC 2.8 L RBC 3.89 L Hgb 12.3 Hct 36.5 L MCV 93.8 MCH 31.6 MCHC 33.7 RDW 14.1 Plt Count 67 L MPV 10.2 Immature Gran % (Auto) 0.4 Neut % (Auto) 52.6 Lymph % (Auto) 26.0 Ashley % (Auto) 17.0 H Eos % (Auto) 2.9 Baso % (Auto) 1.1 Lymph # (Auto) 0.72 L Ashley # (Auto) 0.5 Eos # (Auto) 0.1 Baso # (Auto) 0.0 Abs Immat Gran (auto) 0.01 Absolute Neuts (auto) 1.5 Absolute Nucleated RBC 0.000 Total Counted Neutrophils % (Manual) Band Neutrophils % Lymphocytes % (Manual) Monocytes % (Manual) Eosinophils % (Manual) Basophils % (Manual) Nucleated RBC % 0.0 Abs Neuts (Manual) Abs Lymphs (Manual) Abs Monocytes (Manual) Absolute Eos (Manual) Abs Basophils (Manual) Atypical Lymphocytes Smudge Cells Platelet Estimate Decreased Large Platelets Giant Platelets % Immature Plt Fraction 3.4 Anisocytosis 1+ Ovalocytes Schistocytes None seen PT INR APTT Sodium 135 L Potassium 4.2 Chloride 104 Carbon Dioxide 31 H Anion Gap 0 L BUN 8 Creatinine 0.70 Estim Creat Clear Calc 110 Estimated GFR > 60 Glucose 125 H POC Capillary Glucose 160 H Hemoglobin A1c Lactic Acid Calcium 8.3 L Magnesium 1.8 Total Bilirubin 1.8 H AST 41 H ALT 20 Alkaline Phosphatase 112 Lactate Dehydrogenase Troponin I NT-Pro-B Natriuret Pep Total Protein 6.0 L Albumin 3.1 L Triglycerides Cholesterol Amylase TSH (Reflex) 2.230 Urine Color Yellow Urine Appearance Clear Urine pH 7.0 Ur Specific [place] 1.043 H Urine Protein Negative Urine Glucose (UA) Negative Urine Ketones Negative Ur Blood (Man) Trace Urine Nitrate Negative Urine Bilirubin Negative Urine Urobilinogen 1.0 Leukocyte Esterase Rfl 1+ H Urine RBC 3-5 H Urine WBC 11-20 H Ur Squamous Epith Cells None seen Urine Bacteria None seen Urine Casts 0-2 Pleural Fluid Source Pleural Color Pleural Appearance Pleural pH Pleural RBC Pleural Nuc Cells Pleural Neutrophils Pleural Lymphocytes Pleural Monocytes Pleural Mesothelial 09/24/24 12:55 WBC RBC Hgb Hct MCV MCH MCHC RDW Plt Count MPV Immature Gran % (Auto) Neut % (Auto) Lymph % (Auto) Ashley % (Auto) Eos % (Auto) Baso % (Auto) Lymph # (Auto) Ashley # (Auto) Eos # (Auto) Baso # (Auto) Abs Immat Gran (auto) Absolute Neuts (auto) Absolute Nucleated RBC Total Counted Neutrophils % (Manual) Band Neutrophils % Lymphocytes % (Manual) Monocytes % (Manual) Eosinophils % (Manual) Basophils % (Manual) Nucleated RBC % Abs Neuts (Manual) Abs Lymphs (Manual) Abs Monocytes (Manual) Absolute Eos (Manual) Abs Basophils (Manual) Atypical Lymphocytes Smudge Cells Platelet Estimate Large Platelets Giant Platelets % Immature Plt Fraction Anisocytosis Ovalocytes Schistocytes PT INR APTT Sodium Potassium Chloride Carbon Dioxide Anion Gap BUN Creatinine Estim Creat Clear Calc Estimated GFR Glucose POC Capillary Glucose 139 H Hemoglobin A1c Lactic Acid Calcium Magnesium Total Bilirubin AST ALT Alkaline Phosphatase Lactate Dehydrogenase Troponin I NT-Pro-B Natriuret Pep Total Protein Albumin Triglycerides Cholesterol Amylase TSH (Reflex) Urine Color Urine Appearance Urine pH Ur Specific [place] Urine Protein Urine Glucose (UA) Urine Ketones Ur Blood (Man) Urine Nitrate Urine Bilirubin Urine Urobilinogen Leukocyte Esterase Rfl Urine RBC Urine WBC Ur Squamous Epith Cells Urine Bacteria Urine Casts Pleural Fluid Source Pleural Color Pleural Appearance Pleural pH Pleural RBC Pleural Nuc Cells Pleural Neutrophils Pleural Lymphocytes Pleural Monocytes Pleural Mesothelial Quality VTE Prophylaxis VTE prophylaxis: mechanical ordered
[2024-09-24 16:47] LABS: Glucose Point of Care 108 mg/dl (65-105)
[2024-09-24] MEDS: nadoloL 20 MG TABLET PO (20:14)
[2024-09-24] MEDS: VENLAFAXINE HCL XR 75 MG CAP.ER.24H PO (20:14)
[2024-09-24 20:43] LABS: Glucose Point of Care 156 mg/dl (65-105)
[2024-09-24 21:14] VITALS: BP 139/61; PULSE 55; RESP 20; TEMP 36.3; O2SAT 96
[2024-09-25] MEDS: LEVOTHYROXINE SODIUM 75 MCG TABLET PO (05:39)
[2024-09-25] MEDS: LEVOTHYROXINE SODIUM 100 MCG TABLET PO (05:39)
[2024-09-25 05:59] VITALS: BP 130/63; PULSE 73; RESP 16; TEMP 36; O2SAT 96
[2024-09-25 07:18] LABS: Hematocrit 35.2 % (37.0-47.0); Hemoglobin 11.9 g/dL (12.0-15.0); Immature Platelet Fraction Pct 4.1 % (0.9-11.2); Mean Corpuscular HGB Conc 33.8 g/dl (32-36); Mean Corpuscular Hemoglobin 31.5 pg (26-34); Mean Corpuscular Volume 93.1 fl (80-100); Platelet Count Result 68 k/mm3 (150-375); Red Blood Count 3.78 M/mm3 (4.2-5.4); Red Cell Distribution Width 14.1 % (11.5-14.5); White Blood Count 2.4 K/mm3 (4.5-10.0)
[2024-09-25 07:22] LABS: Alanine Aminotransferase 20 U/L (6-35); Albumin Level 3.1 g/dL (3.5-5.1); Alkaline Phosphatase 123 U/L (38-126); Anion Gap -1 mmol/L (4-12); Aspartate Amino Transferase 40 U/L (14-36); Bilirubin,Total 1.7 mg/dL (0.2-1.3); Blood Urea Nitrogen 8 mg/dL (7-17); Calcium 8.3 mg/dL (8.4-10.2); Carbon Dioxide 31 mmol/L (22-30); Chloride 103 mmol/L (98-107); Estimated CRCL calculation 111 ml/min; Estimated Glomerular Filt Rate > 60; Glucose 128 mg/dL (65-110); Magnesium 1.7 mg/dL (1.6-2.3); Potassium 4.1 mmol/L (3.4-5.0); Sodium 133 mmol/L (137-145)
[2024-09-25 07:44] LABS: Anisocytosis 1+; Basophils Absolute Manual 0.07 K/mm3 (0.0-0.1); Basophils Percent Manual 3 % (0-1); Eosinophils Absolute Manual 0.04 K/mm3 (0.02-0.50); Eosinophils Percent Manual 2 % (0-4); Lymphocytes Absolute Manual 0.62 K/mm3 (1.1-4.5); Lymphocytes Percent Manual 26 % (18-44); Monocytes Absolute Manual 0.31 K/mm3 (0.1-0.90); Monocytes Percent Manual 13 % (3-9); Neutrophils Percent Manual 56 % (46-73); Platelet Estimate Decreased (Adequate); Schistocytes None Seen; Total Cells Counted 100
[2024-09-25 08:02] LABS: Glucose Point of Care 150 mg/dl (65-105)
[2024-09-25] MEDS: CHOLECALCIFEROL 1,000 UNITS TABLET 2000 UNITS PO (08:12)
[2024-09-25] MEDS: GABAPENTIN 300 MG CAPSULE PO (08:12)
[2024-09-25] MEDS: LORATADINE 10 MG TABLET PO (08:12)
[2024-09-25] MEDS: hydroCHLOROthiazide 12.5 MG CAPSULE PO (08:13)
[2024-09-25] MEDS: lisinopriL 10 MG TABLET PO (08:13)
[2024-09-25 11:59] LABS: Glucose Point of Care 177 mg/dl (65-105)
--- NOTE | 2024-09-25 12:09 | P.PNIM_ITS ---
Progress Note: A&P Assessment and Plan (1) Pleural effusion, right: Code(s): J90 - Pleural effusion, not elsewhere classified Status: Acute Assessment and Plan: * Status post Thoracentesis yesterday * Concern for malignant effusion * Awaiting Oncological consultation for development of biopsy and plan of treatment. 09/25/24: * Still awaiting Oncology eval which should be tomorrow. * Will do repeat Xray in AM. * VSS (2) Situational anxiety: Code(s): F41.8 - Other specified anxiety disorders Status: Acute Assessment and Plan: 09/25/24: * Pt with anxiety about awaiting for further workup and development of management plan, and understood why. * Xanax 0.5 mg TID prn ordered with a dose now. * Pt being monitored for further changes in her respiratory status. (3) Mass of upper lobe of right lung: Code(s): R91.8 - Other nonspecific abnormal finding of lung field Status: Acute Assessment and Plan: * See #1 * Suspect Bronchogenic carcinoma (4) Cirrhosis of liver: Code(s): K74.60 - Unspecified cirrhosis of liver Status: Chronic Assessment and Plan: * Noted elevated Bilirubin. * Trend labs (5) Hypothyroidism: Code(s): E03.9 - Hypothyroidism, unspecified Status: Chronic Assessment and Plan: * Continue home meds (6) Obstructive sleep apnea syndrome: Code(s): G47.33 - Obstructive sleep apnea (adult) (pediatric) Status: Chronic Assessment and Plan: * Continue BiPap (7) Thrombocytopenia: Code(s): D69.6 - Thrombocytopenia, unspecified Status: Chronic Assessment and Plan: * Awaiting Dr. Jamison as she sees him regularly for chronic thrombocytopenia. * Monitor for s/s of bleeding * Monitor for trend with labs. (8) Type 2 diabetes mellitus: Code(s): E11.9 - Type 2 diabetes mellitus without complications Status: Chronic Assessment and Plan: * Continue SSI for coverage * Glycemic protocol. Time Spent With Patient Time with patient: 25 - 35 minutes Subjective Date/time seen: 09/25/24 1100 Interval history: Pt was examined today at the bedside. She is awaiting Oncology evaluation which we recently learned will likely not happen until tomorrow, but this is still the quickest way of getting her the consult and evaluation as it would take days to transfer to a tertiary center and it would also be a long wait to follow up with Dr. Jamison as outpt. She appears anxious today, admits she is very scared and is wanting to know what to do. She states she feels more anxious when she lays down and has not slept well at all. She denies any new pains. Review of Systems Review of Systems: All systems reviewed & are unremarkable except as noted in HPI and below Exam Narrative: General: Well-developed, nontoxic-appearing female in the semi-Wall position in bed. HEENT: PERRL, EOMI. Sclera anicteric. Oral mucosa moist. Neck: Supple. Exam limited due to neck circumference. No obvious lymphadenopathy. Respiratory: Respirations are nonlabored and she is speaking in full sentences. Decreased breath sounds in bases bilaterally Cardiovascular: Regular rate and rhythm with S1-S2. Gastrointestinal: Abdomen is soft, obese, nontender, and nondistended with positive bowel sounds. Skin: Warm and dry. Extremities: No cyanosis, clubbing, or edema. Radial and pedal pulses intact. Neurological: Alert. Cranial nerves 2-12 are grossly intact. No gross focal deficits to casual conversation. Psychiatric: Pt is anxious and appears very scared. She is recalling when her mother was diagnosed with cancer and how fast it was for her to and she is scared about waiting to see Oncology. Pt is tearful. Objective Data Vital Signs Vital Signs: Vital Signs - 24 hr 09/24/24 14:29 09/24/24 21:14 09/25/24 05:59 Temperature 97.6 F 97.4 F L 96.8 F L Pulse Rate 54 L 55 L 73 Respiratory Rate 16 20 16 Blood Pressure 124/52 L 139/61 130/63 Pulse Oximetry 96 96 96 Oxygen Delivery 09/25/24 08:00 Temperature Pulse Rate Respiratory Rate Blood Pressure Pulse Oximetry Oxygen Delivery Room Air Intake/Output Intake/Output: Intake & Output 09/22/24 09/23/24 09/24/24 09/25/24 23:59 23:59 23:59 23:59 Intake Total 1770 790 Output Total 1000 Balance -1000 1770 790 Meds/Results Medications: Active Medications Generic Name Dose Route Start Last Admin Trade Name Freq PRN Reason Stop Dose Admin Acetaminophen 650 mg 09/23/24 19:22 Acetaminophen 325 Mg Tablet PO Q6H PRN Mild Pain (1-3) or Fever Alprazolam 0.5 mg 09/25/24 11:08 Alprazolam (*Crx) 0.5 Mg Tablet PO TID PRN Anxiety Calcium Carbonate 500 mg 09/24/24 12:00 09/24/24 12:51 Calcium Carbonate (Oscal) 500 Mg Tablet PO 500 mg DAILY@1200 CAROL Administration Dextrose 12.5 gm 09/23/24 19:22 Dextrose 50% 25 Gm/50 Ml Syringe IV PUSH PRN PRN Hypoglycemia Protocol Gabapentin 300 mg 09/24/24 09:00 09/25/24 08:12 Gabapentin 300 Mg Capsule PO 300 mg DAILY CAROL Administration Glucagon 1 mg 09/23/24 19:22 Glucagon For Inj 1 Mg Vial IM PRN PRN Hypoglycemia Protocol Glucose 15 gm 09/23/24 19:22 Glucose Oral Gel 15 Gm Of Glucse In 37.5 Gm Tube PO PRN PRN Hypoglycemia Protocol Hydrochlorothiazide 12.5 mg 09/24/24 09:00 09/25/24 08:13 Hydrochlorothiazide 12.5 Mg Capsule PO 12.5 mg QAM CAROL Administration Dextrose 1,000 mls @ 100 mls/hr 09/23/24 19:22 Dextrose 5% 1,000 Ml IVPB PRN PRN Hypoglycemia Protocol Insulin Aspart 2 - 5 units 09/24/24 08:00 09/25/24 08:13 Insulin Aspart (*Bkc) 100 Units/Ml SUB-Q Not Given TIDWM [facility] Protocol Insulin Aspart 1 - 2 units 09/23/24 21:00 09/24/24 21:00 Insulin Aspart (*Bkc) 100 Units/Ml SUB-Q Not Given HS [facility] Protocol Levothyroxine Sodium 75 mcg 09/24/24 06:30 09/25/24 05:39 Levothyroxine Sodium 75 Mcg Tablet PO 75 mcg DAILY@0630 CAROL Administration Levothyroxine Sodium 100 mcg 09/24/24 06:30 09/25/24 05:39 Levothyroxine Sodium 100 Mcg Tablet PO 100 mcg DAILY@0630 CAROL Administration Lisinopril 10 mg 09/24/24 09:00 09/25/24 08:13 Lisinopril 10 Mg Tablet PO 10 mg QAM CAROL Administration Loratadine 10 mg 09/24/24 09:00 09/25/24 08:12 Loratadine 10 Mg Tablet PO 10 mg QAM CAROL Administration Nadolol 20 mg 09/23/24 22:25 09/24/24 20:14 Nadolol 20 Mg Tablet PO 20 mg HS CAROL Administration Ondansetron HCl 4 mg 09/23/24 19:22 Ondansetron Inj 4 Mg/2 Ml Vial IV PUSH Q6H PRN Nausea And Vomiting Venlafaxine HCl 75 mg 09/23/24 22:25 09/24/24 20:14 Venlafaxine Hcl Xr 75 Mg Cap.Er.24h PO 75 mg HS CAROL Administration Vitamin D 2,000 units 09/24/24 09:00 09/25/24 08:12 Cholecalciferol 1,000 Units Tablet PO 2,000 units DAILY CAROL Administration Radiology Results: ITS Impressions Chest CTA 09/23/24 16:37 IMPRESSION: 1. 4.1 x 3.3 cm mass in right lung upper lobe, consistent with primary bronchogenic carcinoma. 2. Large right pleural effusion with leftward shift of the mediastinum. Thoracentesis is recommended. 3. Mediastinal lymphadenopathy suspicious for metastatic disease. 4. Cirrhosis of the liver with portal venous hypertension. 5. Ascites. 6. No pulmonary embolus. Chest X-Ray 09/23/24 18:32 IMPRESSION: 1. Mass in right lung upper lobe, consistent with primary bronchogenic carcinoma. 2. Large pleural effusion with improvement status post thoracentesis. Thoracentesis Ultrasound 09/24/24 09:01 IMPRESSION: 1. Successful ultrasound-guided thoracentesis yielding 1000 mL of yellowish fluid. Labs Labs: Laboratory Results - last 24 hr 09/24/24 09/24/24 09/24/24 12:55 16:40 20:28 WBC RBC Hgb Hct MCV MCH MCHC RDW Plt Count MPV Immature Gran % (Auto) Neut % (Auto) Lymph % (Auto) [place] % (Auto) Eos % (Auto) Baso % (Auto) Lymph # (Auto) [place] # (Auto) Eos # (Auto) Baso # (Auto) Abs Immat Gran (auto) Absolute Neuts (auto) Absolute Nucleated RBC Total Counted Neutrophils % (Manual) Lymphocytes % (Manual) Monocytes % (Manual) Eosinophils % (Manual) Basophils % (Manual) Nucleated RBC % Abs Lymphs (Manual) Abs Monocytes (Manual) Absolute Eos (Manual) Abs Basophils (Manual) Platelet Estimate % Immature Plt Fraction Anisocytosis Schistocytes Sodium Potassium Chloride Carbon Dioxide Anion Gap BUN Creatinine Estim Creat Clear Calc Estimated GFR Glucose POC Capillary Glucose 139 H 108 H 156 H Calcium Magnesium Total Bilirubin AST ALT Alkaline Phosphatase Total Protein Albumin 09/25/24 09/25/24 09/25/24 07:00 07:51 11:55 WBC 2.4 L RBC 3.78 L Hgb 11.9 L Hct 35.2 L MCV 93.1 MCH 31.5 MCHC 33.8 RDW 14.1 Plt Count 68 L MPV 10.0 Immature Gran % (Auto) Not Reportable Neut % (Auto) Not Reportable Lymph % (Auto) Not Reportable [place] % (Auto) Not Reportable Eos % (Auto) Not Reportable Baso % (Auto) Not Reportable Lymph # (Auto) Not Reportable [place] # (Auto) Not Reportable Eos # (Auto) Not Reportable Baso # (Auto) Not Reportable Abs Immat Gran (auto) Not Reportable Absolute Neuts (auto) Not Reportable Absolute Nucleated RBC Not Reportable Total Counted 100 Neutrophils % (Manual) 56 Lymphocytes % (Manual) 26 Monocytes % (Manual) 13 H Eosinophils % (Manual) 2 Basophils % (Manual) 3 H Nucleated RBC % Not Reportable Abs Lymphs (Manual) 0.62 L Abs Monocytes (Manual) 0.31 Absolute Eos (Manual) 0.04 Abs Basophils (Manual) 0.07 Platelet Estimate Decreased % Immature Plt Fraction 4.1 Anisocytosis 1+ Schistocytes None seen Sodium 133 L Potassium 4.1 Chloride 103 Carbon Dioxide 31 H Anion Gap -1 L BUN 8 Creatinine 0.70 Estim Creat Clear Calc 111 Estimated GFR > 60 Glucose 128 H POC Capillary Glucose 150 H 177 H Calcium 8.3 L Magnesium 1.7 Total Bilirubin 1.7 H AST 40 H ALT 20 Alkaline Phosphatase 123 Total Protein 6.0 L Albumin 3.1 L Quality VTE Prophylaxis VTE prophylaxis: mechanical ordered
[2024-09-25] MEDS: CALCIUM CARBONATE (OSCAL) 500 MG TABLET PO (12:21)
[2024-09-25] MEDS: ALPRAZolam (*CRX) 0.5 MG TABLET PO (12:21)
[2024-09-25 14:00] VITALS: BP 130/63; PULSE 55; RESP 20; TEMP 36.2; O2SAT 95
[2024-09-25 17:06] LABS: Glucose Point of Care 157 mg/dl (65-105)
[2024-09-25 20:28] LABS: Glucose Point of Care 123 mg/dl (65-105)
[2024-09-25 21:30] VITALS: BP 120/58; PULSE 56; RESP 18; TEMP 36.6; O2SAT 95
[2024-09-25] MEDS: VENLAFAXINE HCL XR 75 MG CAP.ER.24H PO (21:41)
[2024-09-25] MEDS: nadoloL 20 MG TABLET PO (21:41)
[2024-09-25 22:15] VITALS: PULSE 57; O2SAT 96
[2024-09-26] VITALS (11 sets, daily range): BP systolic 124–137; BP diastolic 60–69; PULSE 50–55; RESP 16–20; TEMP 36–36.7; O2SAT 94–100
[2024-09-26] MEDS: LEVOTHYROXINE SODIUM 75 MCG TABLET PO (05:51)
[2024-09-26] MEDS: LEVOTHYROXINE SODIUM 100 MCG TABLET PO (05:51)
[2024-09-26 07:36] LABS: Basophils Percent Auto 0.8 % (0.2-1.2); Eosinophils Absolute Auto 0.1 K/mm3 (0-0.3); Eosinophils Percent Auto 3.8 % (0-4.4); Hematocrit 36.7 % (37.0-47.0); Hemoglobin 12.5 g/dL (12.0-15.0); Immature Granulocyte Absolute 0.02 K/mm3 (0.00-0.031); Immature Granulocyte Percent A 0.8 % (0-0.5); Immature Platelet Fraction Pct 4.6 % (0.9-11.2); Lymphocytes Absolute Auto 0.78 K/mm3 (0.9-3.2); Lymphocytes Percent Auto 29.3 % (18.3-44.2); Mean Corpuscular HGB Conc 34.1 g/dl (32-36); Mean Corpuscular Hemoglobin 31.7 pg (26-34); Mean Corpuscular Volume 93.1 fl (80-100); Mean Platelet Volume 10.3 fl (7.4-10.4); Monocytes Absolute Auto 0.4 K/mm3 (0.1-0.6); Monocytes Percent Auto 16.2 % (2.6-8.5); Neutrophils Absolute Auto 1.3 K/mm3 (1.3-6.7); Neutrophils Percent Auto 49.1 % (45.5-73.1); Platelet Count Result 75 k/mm3 (150-375); Red Blood Count 3.94 M/mm3 (4.2-5.4); Red Cell Distribution Width 14.2 % (11.5-14.5); White Blood Count 2.7 K/mm3 (4.5-10.0)
[2024-09-26 07:44] LABS: Alanine Aminotransferase 20 U/L (6-35); Albumin Level 3.2 g/dL (3.5-5.1); Alkaline Phosphatase 134 U/L (38-126); Anion Gap 0 mmol/L (4-12); Aspartate Amino Transferase 40 U/L (14-36); Bilirubin,Total 1.5 mg/dL (0.2-1.3); Blood Urea Nitrogen 12 mg/dL (7-17); Calcium 8.5 mg/dL (8.4-10.2); Carbon Dioxide 30 mmol/L (22-30); Chloride 103 mmol/L (98-107); Estimated CRCL calculation 110 ml/min; Estimated Glomerular Filt Rate > 60; Glucose 128 mg/dL (65-110); Magnesium 1.7 mg/dL (1.6-2.3); Sodium 133 mmol/L (137-145)
[2024-09-26] MEDS: hydroCHLOROthiazide 12.5 MG CAPSULE PO (08:08)
[2024-09-26] MEDS: lisinopriL 10 MG TABLET PO (08:08)
[2024-09-26] MEDS: GABAPENTIN 300 MG CAPSULE PO (08:08)
[2024-09-26] MEDS: LORATADINE 10 MG TABLET PO (08:08)
[2024-09-26] MEDS: CHOLECALCIFEROL 1,000 UNITS TABLET 2000 UNITS PO (08:08)
[2024-09-26 08:31] LABS: Platelet Estimate Decreased (Adequate)
[2024-09-26 08:32] LABS: Anisocytosis 1+; Microcytosis 1+ (NORMAL); Ovalocytes 1+; Schistocytes None Seen
[2024-09-26 08:37] LABS: Glucose Point of Care 133 mg/dl (65-105)
[2024-09-26] MEDS: CALCIUM CARBONATE (OSCAL) 500 MG TABLET PO (12:05)
[2024-09-26 12:14] LABS: Glucose Point of Care 104 mg/dl (65-105)
--- NOTE | 2024-09-26 12:20 | PM.CNPUL ---
Assessment and Plan Assessment and plan (1) Mass of upper lobe of right lung: Code(s): R91.8 - Other nonspecific abnormal finding of lung field Status: Acute Assessment and Plan: Patient is a nonsmoker and presents with a large right pleural effusion and right upper lobe lung mass. Her mother had presumed lung cancer at age 91. sister has colorectal cancer and thyroid cancer. Daughter has breast cancer and had a lung resection and found to have carcinoid. Patient presents with a large right pleural effusion and right upper lobe lung mass. The diffusion appears noninfected, lymphocytic and cytology negative. Plan: I reviewed the CT scan with the radiologist and the plan will be to pursue a CT-guided right upper lobe lung mass. I have talked to the patient about the benefits and risks of this procedures and she is willing to proceed. I have ordered this examination. Oncology has been consulted. If the patient tolerates her CT-guided biopsy without complications, she can be discharged from a pulmonary perspective. If the CT-guided biopsy confirms cancer she will follow up with Oncology. If the CT-guided biopsy is nondiagnostic, the patient should have a repeat right-sided thoracentesis or be referred to a center that can perform an EBUS procedure. Discussed with Cata Carr, will sign off, call [facility] questions. (2) Obstructive sleep apnea syndrome: Code(s): G47.33 - Obstructive sleep apnea (adult) (pediatric) Status: Chronic Assessment and Plan: Regarding her obstructive sleep apnea she was diagnosed 20 years and been on a CPAP machine at home with no oxygen since then. [employer] is her DME. Overall she has been feeling well but is not sure her machine is working as well as he used to over the last year. She does take naps and has headaches 1 time every 2 weeks. Her headaches are relieved by caffeine. She does not follow up regularly with a physician who monitors her downloads. Plan: I have told the patient to discontinue her CPAP for [address]-guided biopsy of the lung. History of Present Illness History of Present Illness Consult date: 09/26/24 Chief complaint: Pleural effusion Narrative: 09/26/2024: This is a new pulmonary consult for right lung mass. 59-year-old with a history of cirrhosis from [facility], thrombocytopenia did and obstructive sleep apnea. Regarding her obstructive sleep apnea she was diagnosed 20 years and been on a CPAP machine at home with no oxygen since then. [employer] is her DME. Overall she has been feeling well but is not sure her machine is working as well as he used to over the last year. She does take naps and has headaches 1 time every 2 weeks. Her headaches are relieved by caffeine. She does not follow up regularly with a physician who monitors her downloads. Regarding her cirrhosis and decreased platelets she is followed by GI at [facility] in the [place] CT scans every 6 months. They have told her her disease is stable. She does have a Tatiana Edyta varices and has underwent EGD in the past. she is on nadolol 20 mg p.o. q.h.s.. The patient has no history of asthma, COPD, pneumonia. She is a nonsmoker and not exposed to any secondhand smoke. She has no history of exposure to illicit drug, sandblasting, welding, asbestos were, professional painting, steel stamping mill tender, construction work. Patient did work for a coal mine in the office setting but was not exposed to any underground work. patient has a sister with colorectal cancer and thyroid cancer. Patient's mother had presumed lung cancer at age 91 with no biopsy and no treatment and in 3 months. Patient's niece has breast cancer and lung cancer with a resection and a diagnosis of carcinoid. Approximately 2 months ago the patient noted shortness of breath especially when she would lay down. She developed some wheezing intermittently. These symptoms progressed and she had saturations 88 on room air and presented to the emergency department. She denied any fever, chills, rigors. She had a small cough but more of a clearing of her throat. She denied phlegm or hemoptysis. She had slight right-sided anterior and posterior chest pain. She presented to the emergency department on 09/[address] scan of the chest that demonstrated a large right pleural effusion and a right upper lobe lung mass. She had a thoracentesis of 1000 mL yellow fluid and had immediate improvement in her chest pressure and shortness of breath. Her pH was out of range high, nucleated cells 1000, neutrophils 8%, lymphocytes 65%, monocytes 17%, mesothelial cells 10%. G stain showed no organisms or white blood cells. Cytology was negative. 09/26/2024: Patient tells me she is breathing back at her baseline. Her room air saturations are 96%. Yesterday she took a shower and had no dyspnea on exertion. She is afebrile. White blood cell count 2.7, platelets 75,000. DATA 09/23/24: EXAMINATION: CTA chest PE protocol INDICATION: Shortness of breath. COMPARISON: Chest CT 10/08/2022 FINDINGS: There is a right large right pleural effusion. There is a 4.1 x 3.3 cm mass in right lung upper lobe. There is leftward shift of the mediastinum. The thyroid is enlarged. The heart size is normal. No pericardial effusion. There is mediastinal lymphadenopathy. For example, a right paratracheal node measures 2.6 x 1.3 cm. There is no pulmonary embolus. There is liver surface nodularity, consistent with cirrhosis. There is a 9 mm cyst in the liver. There are changes of cholecystectomy. Splenomegaly is noted. Perihepatic ascites is noted. Paraesophageal varices are noted. There is mild periportal lymphadenopathy, likely reactive. There is mild thoracic spondylosis. There is a chronic compression fracture of T12. There is a chronic burst fracture of L2. IMPRESSION: 1. 4.1 x 3.3 cm mass in right lung upper lobe, consistent with primary bronchogenic carcinoma. 2. Large right pleural effusion with leftward shift of the mediastinum. Thoracentesis is recommended. 3. Mediastinal lymphadenopathy suspicious for metastatic disease. 4. Cirrhosis of the liver with portal venous hypertension. 5. Ascites. 6. No pulmonary embolus. Review of Systems Constitutional: Constitutional: Reports no additional constitutional complaints Eyes: Eyes: Reports no additional eye complaints ENT: Reports system reviewed and no additional complaints, except as documented Cardiovascular: Cardiovascular: Reports no additional cardiovascular complaints Respiratory: Respiratory: Reports no additional respiratory complaints Gastrointestinal: Gastrointestinal: Reports no additional gastrointestinal complaints Musculoskeletal: Musculoskeletal: Reports no additional musculoskeletal complaints Neurologic: Reports system reviewed and no additional complaints, except as documented Psychiatric: Psychiatric: Reports no additional psychiatric complaints Endocrine: Endocrine: Reports no additional endocrine complaints Hematologic/Lymphatic: Hematologic/Lymphatic: Reports no additional hematologic/lymphatic complaints Allergic/Immunologic: Allergic/Immunologic: Reports no additional allergic/immunologic complaints [facility] Past Medical History Medical History (Updated 09/25/24 @ 12:15 by Lisha Harrington, [employer] TRA[employer]ER-C) Situational anxiety Depression Hypothyroidism Cirrhosis of liver Type 2 diabetes mellitus Anxiety Essential hypertension Obstructive sleep apnea syndrome Surgical History Surgical History (Updated 09/23/24 @ 22:17 by Adriana Bernal PA-C) History of open reduction and internal fixation (ORIF) procedure repair of left elbow fracture History of laser assisted in situ keratomileusis History of wisdom tooth extraction History of tonsillectomy and adenoidectomy History of ear surgery repair of right auditory canal and tympanic membrane History of cholecystectomy Family History Family History (Updated 09/23/24 @ 19:43 by Sraah Nunez RN) Mother Diabetes mellitus Lung cancer Hypertension Afib Pacemaker Father Diabetes mellitus Myelodysplasia (myelodysplastic syndrome) Hypertension Sibling Thyroid cancer Colorectal cancer, stage III Other Breast cancer Social History Social History (Updated 09/23/24 @ 22:18 by Adriana Bernal PA-C) Social History: Surrogate medical decision maker: Erendiraadriana Goodman (sister) or Elisa Guan (niece). Code status: Full code. Smoking status: Never smoker Second hand tobacco smoke exposure: No Alcohol intake: never Substance use: never Substance use type: does not use Do You Feel Safe in your Home?: Yes Lack of Transportation: No Lack of Food: Never True Current Housing: I Have Housing Concerned About Future Housing: No Difficulty Paying Gas/Electric Bills: No Difficulty Paying for Meds: No Currently Unemployed: No Education: Associate Degree Difficulty w/ Childcare or Family Care: No Spiritual care concerns: No Meds Home Medications and Allergies Home Medications ?Medication ?Instructions ?Recorded ?Confirmed ?Type levothyroxine 150 mcg tablet 150 mcg PO DAILY 11/04/19 09/23/24 History (Synthroid) cholecalciferol (vitamin D3) 50 50 mcg PO DAILY 09/27/21 09/23/24 History mcg (2,000 unit) capsule diclofenac sodium 50 mg 50 mg PO BID PRN joint pain 10/08/22 09/23/24 History tablet,delayed release calcium carbonate (Calcium 600) 600 mg PO DAILY 10/19/22 09/23/24 History lisinopril 10 1 tablet PO DAILY #90 tabs 02/07/23 09/23/24 Rx mg-hydrochlorothiazide 12.5 mg tablet gabapentin 300 mg capsule 300 mg PO DAILY 08/17/23 09/23/24 History cetirizine 10 mg tablet 10 mg PO DAILY 09/23/24 09/23/24 History levothyroxine 175 mcg tablet 175 mcg PO DAILY 09/23/24 09/23/24 History (Unithroid) nadolol 20 mg tablet 20 mg PO HS 09/23/24 09/23/24 History venlafaxine 75 mg capsule,extended 75 mg PO HS 09/23/24 09/23/24 History release 24 hr Allergies Allergy/AdvReac Type Severity Reaction Status Date / Time No Known Allergies Allergy Mild Verified 09/23/24 19:28 Vital Signs Vital Signs - 24 hr 09/25/24 14:00 09/25/24 20:00 09/25/24 21:30 Temperature 36.2 C L 36.6 C Pulse Rate 55 L 56 L Respiratory Rate 20 18 Blood Pressure 130/63 120/58 L Pulse Oximetry 95 95 Oxygen Delivery Room Air 09/25/24 22:15 09/26/24 05:27 09/26/24 11:00 Temperature 36.0 C L Pulse Rate 57 L 55 L Respiratory Rate 18 Blood Pressure 126/60 Pulse Oximetry 96 95 94 Oxygen Delivery Autopap Room Air Exam Const: General: cooperative, healthy appearing and comfortable Orientation/consciousness: oriented to person, oriented to place and oriented to time HENMT: Head: normal to inspection Ears: hearing grossly normal bilaterally Eyes: General: appearance normal, both eyes and all related structures Neck: Neck: normal visual inspection Chest: Chest palpation & inspection: normal inspection of the chest Resp: Effort & Inspection: normal respiratory effort and able to speak in complete sentences Auscultation: no crackles, no rales, no rhonchi, no wheezes and diminished lung sounds Other: 1/2 way up on right Cardio: Jugular venous distension: no JVD GI: Inspection: normal to inspection GI Palp: No abdominal tenderness Skin: General skin exam: normal color Neuro: General: oriented to person, oriented to place and oriented to time Extrem: General: normal to inspection and no edema Psych: Appearance: grossly normal Results Laboratory Findings 09/26/24 06:32 09/26/24 06:32 ABG, PT/INR, D-dimer: PT/INR, D-dimer PT 15.6 Seconds (11.1-14.7) H 09/23/24 15:52 INR 1.2 09/23/24 15:52 Abnormal lab findings: Abnormal Labs 09/23/24 09/23/24 09/23/24 15:14 15:51 15:52 WBC 3.5 L RBC Hgb Hct Plt Count 81 L Immature Gran % (Auto) [place] % (Auto) Lymph # (Auto) Neutrophils % (Manual) 29 L Lymphocytes % (Manual) 17 L Monocytes % (Manual) Basophils % (Manual) Abs Neuts (Manual) 1.01 L Abs Lymphs (Manual) 0.59 L PT 15.5 H 15.6 H Sodium 135 L Carbon Dioxide Anion Gap Creatinine 0.60 L Glucose 148 H 198 H POC Capillary Glucose Lactic Acid 2.2 H Calcium Total Bilirubin 2.0 H 1.8 H AST 43 H Alkaline Phosphatase Lactate Dehydrogenase 250 H Total Protein Albumin Ur Specific [place] Leukocyte Esterase Rfl Urine RBC Urine WBC Pleural pH 09/23/24 09/23/24 09/24/24 18:25 20:52 01:15 WBC RBC Hgb Hct Plt Count Immature Gran % (Auto) [place] % (Auto) Lymph # (Auto) Neutrophils % (Manual) Lymphocytes % (Manual) Monocytes % (Manual) Basophils % (Manual) Abs Neuts (Manual) Abs Lymphs (Manual) PT Sodium Carbon Dioxide Anion Gap Creatinine Glucose POC Capillary Glucose 143 H Lactic Acid Calcium Total Bilirubin AST Alkaline Phosphatase Lactate Dehydrogenase Total Protein Albumin Ur Specific [place] 1.043 H Leukocyte Esterase Rfl 1+ H Urine RBC 3-5 H Urine WBC 11-20 H Pleural pH > 0.000 L 09/24/24 09/24/24 09/24/24 06:18 07:33 12:55 WBC 2.8 L RBC 3.89 L Hgb Hct 36.5 L Plt Count 67 L Immature Gran % (Auto) [place] % (Auto) 17.0 H Lymph # (Auto) 0.72 L Neutrophils % (Manual) Lymphocytes % (Manual) Monocytes % (Manual) Basophils % (Manual) Abs Neuts (Manual) Abs Lymphs (Manual) PT Sodium 135 L Carbon Dioxide 31 H Anion Gap 0 L Creatinine Glucose 125 H POC Capillary Glucose 160 H 139 H Lactic Acid Calcium 8.3 L Total Bilirubin 1.8 H AST 41 H Alkaline Phosphatase Lactate Dehydrogenase Total Protein 6.0 L Albumin 3.1 L Ur Specific [place] Leukocyte Esterase Rfl Urine RBC Urine WBC Pleural pH 09/24/24 09/24/24 09/25/24 16:40 20:28 07:00 WBC 2.4 L RBC 3.78 L Hgb 11.9 L Hct 35.2 L Plt Count 68 L Immature Gran % (Auto) [place] % (Auto) Lymph # (Auto) Neutrophils % (Manual) Lymphocytes % (Manual) Monocytes % (Manual) 13 H Basophils % (Manual) 3 H Abs Neuts (Manual) Abs Lymphs (Manual) 0.62 L PT Sodium 133 L Carbon Dioxide 31 H Anion Gap -1 L Creatinine Glucose 128 H POC Capillary Glucose 108 H 156 H Lactic Acid Calcium 8.3 L Total Bilirubin 1.7 H AST 40 H Alkaline Phosphatase Lactate Dehydrogenase Total Protein 6.0 L Albumin 3.1 L Ur Specific [place] Leukocyte Esterase Rfl Urine RBC Urine WBC Pleural pH 09/25/24 09/25/24 09/25/24 07:51 11:55 16:46 WBC RBC Hgb Hct Plt Count Immature Gran % (Auto) [place] % (Auto) Lymph # (Auto) Neutrophils % (Manual) Lymphocytes % (Manual) Monocytes % (Manual) Basophils % (Manual) Abs Neuts (Manual) Abs Lymphs (Manual) PT Sodium Carbon Dioxide Anion Gap Creatinine Glucose POC Capillary Glucose 150 H 177 H 157 H Lactic Acid Calcium Total Bilirubin AST Alkaline Phosphatase Lactate Dehydrogenase Total Protein Albumin Ur Specific [place] Leukocyte Esterase Rfl Urine RBC Urine WBC Pleural pH 09/25/24 09/26/24 09/26/24 20:23 06:32 08:11 WBC 2.7 L RBC 3.94 L Hgb Hct 36.7 L Plt Count 75 L Immature Gran % (Auto) 0.[address] [place] % (Auto) 16.2 H Lymph # (Auto) 0.78 L Neutrophils % (Manual) Lymphocytes % (Manual) Monocytes % (Manual) Basophils % (Manual) Abs Neuts (Manual) Abs Lymphs (Manual) PT Sodium 133 L Carbon Dioxide Anion Gap 0 L Creatinine Glucose 128 H POC Capillary Glucose 123 H 133 H Lactic Acid Calcium Total Bilirubin 1.5 H AST 40 H Alkaline Phosphatase 134 H Lactate Dehydrogenase Total Protein 6.0 L Albumin 3.2 L Ur Specific [place] Leukocyte Esterase Rfl Urine RBC Urine WBC Pleural pH Diagnostic Findings Additional studies: ITS Impressions Chest X-Ray 09/23/24 15:32 IMPRESSION: 1. Atelectasis and/or pneumonia in the right lung along side a large lateral right pleural effusion. Consider diagnostic/therapeutic thoracentesis. Chest CTA 09/23/24 16:37 IMPRESSION: 1. 4.1 x 3.3 cm mass in right lung upper lobe, consistent with primary bronchogenic carcinoma. 2. Large right pleural effusion with leftward shift of the mediastinum. Thoracentesis is recommended. 3. Mediastinal lymphadenopathy suspicious for metastatic disease. 4. Cirrhosis of the liver with portal venous hypertension. 5. Ascites. 6. No pulmonary embolus. Chest X-Ray 09/23/24 18:32 IMPRESSION: 1. Mass in right lung upper lobe, consistent with primary bronchogenic carcinoma. 2. Large pleural effusion with improvement status post thoracentesis. Thoracentesis Ultrasound 09/24/24 09:01 IMPRESSION: 1. Successful ultrasound-guided thoracentesis yielding 1000 mL of yellowish fluid.
[2024-09-26 17:03] LABS: Glucose Point of Care 93 mg/dl (65-105)
--- NOTE | 2024-09-26 18:38 | P.PNIM_ITS ---
Progress Note: A&P Assessment and Plan (1) Pleural effusion, right: Code(s): J90 - Pleural effusion, not elsewhere classified Status: Acute Assessment and Plan: Status post Thoracentesis 09/24. Fluid for cytology nondiagnostic. Concern for malignant effusion. Pulmonary consulted and recommended CT guided biopsy after discussion with radiology, done today. Oncology consult pending. (2) Situational anxiety: Code(s): F41.8 - Other specified anxiety disorders Status: Acute Assessment and Plan: Anxiety related to new diagnosis * Xanax 0.5 mg TID prn (3) Mass of upper lobe of right lung: Code(s): R91.8 - Other nonspecific abnormal finding of lung field Status: Acute Assessment and Plan: * See #1 * Suspect Bronchogenic carcinoma (4) Cirrhosis of liver: Code(s): K74.60 - Unspecified cirrhosis of liver Status: Chronic Assessment and Plan: * Noted elevated Bilirubin. * Trend labs * Likely start low doses of lasix and spironolactone in am (5) Hypothyroidism: Code(s): E03.9 - Hypothyroidism, unspecified Status: Chronic Assessment and Plan: * Continue home meds (6) Obstructive sleep apnea syndrome: Code(s): G47.33 - Obstructive sleep apnea (adult) (pediatric) Status: Chronic Assessment and Plan: * Holding BiPap for 5 days post biopsy (7) Thrombocytopenia: Code(s): D69.6 - Thrombocytopenia, unspecified Status: Chronic Assessment and Plan: Follows with Dr. Jamison outpatient chronic thrombocytopenia. 67-81 during admission * Monitor for s/s of bleeding * Continue to follow (8) Type 2 diabetes mellitus: Code(s): E11.9 - Type 2 diabetes mellitus without complications Status: Chronic Assessment and Plan: * Continue SSI for coverage * Glycemic protocol. Time Spent With Patient Time: 58 minutes Subjective Date/time seen: 09/26/24 09:15 Interval history: Cytology negative. Pulmonary consulted, discussed with radiology and recommended a CT guided biopsy of mass, which was done today. Oncology consult pending Holding bipap for 5 days post biopsy Review of Systems Review of Systems: 12 systems were reviewed and are negativ e except for as per HPI. All systems reviewed & are unremarkable except as noted in HPI and below Exam Narrative: General: Well-developed, nontoxic-appearing female in the semi-Wall position in bed. HEENT: PERRL, EOMI. Sclera anicteric. Oral mucosa moist. Neck: Supple. Exam limited due to neck circumference. No obvious lymphadenopathy. Respiratory: Respirations are nonlabored and she is speaking in full sentences. Decreased breath sounds in bases bilaterally Cardiovascular: Regular rate and rhythm with S1-S2. Gastrointestinal: Abdomen is soft, obese, nontender, and nondistended with positive bowel sounds. Skin: Warm and dry. Extremities: No cyanosis, clubbing, or edema. Radial and pedal pulses intact. Neurological: Alert. Cranial nerves 2-12 are grossly intact. No gross focal deficits to casual conversation. Psychiatric: Calm, appropriate Objective Data Vital Signs Vital Signs: Vital Signs - 24 hr 09/25/24 20:00 09/25/24 21:30 09/25/24 22:15 Temperature 97.9 F Pulse Rate 56 L 57 L Respiratory Rate 18 Blood Pressure 120/58 L Pulse Oximetry 95 96 Oxygen Delivery Room Air Autopap 09/26/24 05:27 09/26/24 08:00 09/26/24 11:00 Temperature 96.8 F L Pulse Rate 55 L Respiratory Rate 18 Blood Pressure 126/60 Pulse Oximetry 95 94 Oxygen Delivery Room Air Room Air 09/26/24 15:02 09/26/24 15:17 09/26/24 15:32 Temperature 97.6 F 97.8 F 97.8 F Pulse Rate 50 L 55 L 55 L Respiratory Rate 20 20 20 Blood Pressure 137/69 135/60 135/60 Pulse Oximetry 100 100 100 Oxygen Delivery 09/26/24 15:47 09/26/24 16:02 09/26/24 16:32 Temperature 97.8 F 97.6 F 97.6 F Pulse Rate 54 L 50 L 50 L Respiratory Rate 18 18 18 Blood Pressure 135/60 135/60 135/60 Pulse Oximetry 100 100 100 Oxygen Delivery Intake/Output Intake/Output: Intake & Output 09/23/24 09/24/24 09/25/24 09/26/24 23:59 23:59 23:59 23:59 Intake Total 1770 1270 920 Output Total 1000 Balance -1000 1770 1270 920 Meds/Results Medications: Active Medications Generic Name Dose Route Start Last Admin Trade Name Freq PRN Reason Stop Dose Admin Acetaminophen 650 mg 09/23/24 19:22 Acetaminophen 325 Mg Tablet PO Q6H PRN Mild Pain (1-3) or Fever Alprazolam 0.5 mg 09/25/24 11:08 Alprazolam (*Crx) 0.5 Mg Tablet PO TID PRN Anxiety Calcium Carbonate 500 mg 09/24/24 12:00 09/26/24 12:05 Calcium Carbonate (Oscal) 500 Mg Tablet PO 500 mg DAILY@1200 CAROL Administration Dextrose 12.5 gm 09/23/24 19:22 Dextrose 50% 25 Gm/50 Ml Syringe IV PUSH PRN PRN Hypoglycemia Protocol Gabapentin 300 mg 09/24/24 09:00 09/26/24 08:08 Gabapentin 300 Mg Capsule PO 300 mg DAILY CAROL Administration Glucagon 1 mg 09/23/24 19:22 Glucagon For Inj 1 Mg Vial IM PRN PRN Hypoglycemia Protocol Glucose 15 gm 09/23/24 19:22 Glucose Oral Gel 15 Gm Of Glucse In 37.5 Gm Tube PO PRN PRN Hypoglycemia Protocol Hydrochlorothiazide 12.5 mg 09/24/24 09:00 09/26/24 08:08 Hydrochlorothiazide 12.5 Mg Capsule PO 12.5 mg QAM CAROL Administration Dextrose 1,000 mls @ 100 mls/hr 09/23/24 19:22 Dextrose 5% 1,000 Ml IVPB PRN PRN Hypoglycemia Protocol Insulin Aspart 2 - 5 units 09/24/24 08:00 09/26/24 17:59 Insulin Aspart (*Bkc) 100 Units/Ml SUB-Q Not Given TIDWM [facility] Protocol Insulin Aspart 1 - 2 units 09/23/24 21:00 09/25/24 21:38 Insulin Aspart (*Bkc) 100 Units/Ml SUB-Q Not Given HS [facility] Protocol Levothyroxine Sodium 75 mcg 09/24/24 06:30 09/26/24 05:51 Levothyroxine Sodium 75 Mcg Tablet PO 75 mcg DAILY@0630 CAROL Administration Levothyroxine Sodium 100 mcg 09/24/24 06:30 09/26/24 05:51 Levothyroxine Sodium 100 Mcg Tablet PO 100 mcg DAILY@0630 CAROL Administration Lisinopril 10 mg 09/24/24 09:00 09/26/24 08:08 Lisinopril 10 Mg Tablet PO 10 mg QAM CAROL Administration Loratadine 10 mg 09/24/24 09:00 09/26/24 08:08 Loratadine 10 Mg Tablet PO 10 mg QAM CAROL Administration Nadolol 20 mg 09/23/24 22:25 09/25/24 21:41 Nadolol 20 Mg Tablet PO 20 mg HS CAROL Administration Ondansetron HCl 4 mg 09/23/24 19:22 Ondansetron Inj 4 Mg/2 Ml Vial IV PUSH Q6H PRN Nausea And Vomiting Venlafaxine HCl 75 mg 09/23/24 22:25 09/25/24 21:41 Venlafaxine Hcl Xr 75 Mg Cap.Er.24h PO 75 mg HS CAROL Administration Vitamin D 2,000 units 09/24/24 09:00 09/26/24 08:08 Cholecalciferol 1,000 Units Tablet PO 2,000 units DAILY CAROL Administration Radiology Results: ITS Impressions Chest CTA 09/23/24 16:37 IMPRESSION: 1. 4.1 x 3.3 cm mass in right lung upper lobe, consistent with primary bronchogenic carcinoma. 2. Large right pleural effusion with leftward shift of the mediastinum. Thoracentesis is recommended. 3. Mediastinal lymphadenopathy suspicious for metastatic disease. 4. Cirrhosis of the liver with portal venous hypertension. 5. Ascites. 6. No pulmonary embolus. Thoracentesis Ultrasound 09/24/24 09:01 IMPRESSION: 1. Successful ultrasound-guided thoracentesis yielding 1000 mL of yellowish fluid. Lung Biopsy CT 09/26/24 15:58 IMPRESSION: 1. Successful CT-guided biopsy of a 3.8 cm right upper lobe mass which is concerning for primary bronchogenic carcinoma. 2. Large right pleural effusion. Chest X-Ray 09/26/24 18:18 IMPRESSION: 1. 4 cm mass in right lung upper lobe suspicious for primary bronchogenic carcinoma. 2. Stable small right pleural effusion. 3. Stable airspace opacities in right mid and lower lung zones, likely atelectasis. Labs Labs: Laboratory Results - last 24 hr 09/25/24 09/26/24 09/26/24 20:23 06:32 08:11 WBC 2.7 L RBC 3.94 L Hgb 12.5 Hct 36.7 L MCV 93.1 MCH 31.7 MCHC 34.1 RDW 14.2 Plt Count 75 L MPV 10.3 Immature Gran % (Auto) 0.8 H Neut % (Auto) 49.1 Lymph % (Auto) 29.3 [place] % (Auto) 16.2 H Eos % (Auto) 3.8 Baso % (Auto) 0.8 Lymph # (Auto) 0.78 L [place] # (Auto) 0.4 Eos # (Auto) 0.1 Baso # (Auto) 0.0 Abs Immat Gran (auto) 0.02 Absolute Neuts (auto) 1.3 Absolute Nucleated RBC 0.000 Nucleated RBC % 0.0 Platelet Estimate Decreased % Immature Plt Fraction 4.6 Anisocytosis 1+ Microcytosis 1+ Ovalocytes 1+ Schistocytes None seen Sodium 133 L Potassium 4.0 Chloride 103 Carbon Dioxide 30 Anion Gap 0 L BUN 12 Creatinine 0.70 Estim Creat Clear Calc 110 Estimated GFR > 60 Glucose 128 H POC Capillary Glucose 123 H 133 H Calcium 8.5 Magnesium 1.7 Total Bilirubin 1.5 H AST 40 H ALT 20 Alkaline Phosphatase 134 H Total Protein 6.0 L Albumin 3.2 L 09/26/24 09/26/24 12:00 16:51 WBC RBC Hgb Hct MCV MCH MCHC RDW Plt Count MPV Immature Gran % (Auto) Neut % (Auto) Lymph % (Auto) [place] % (Auto) Eos % (Auto) Baso % (Auto) Lymph # (Auto) [place] # (Auto) Eos # (Auto) Baso # (Auto) Abs Immat Gran (auto) Absolute Neuts (auto) Absolute Nucleated RBC Nucleated RBC % Platelet Estimate % Immature Plt Fraction Anisocytosis Microcytosis Ovalocytes Schistocytes Sodium Potassium Chloride Carbon Dioxide Anion Gap BUN Creatinine Estim Creat Clear Calc Estimated GFR Glucose POC Capillary Glucose 104 93 Calcium Magnesium Total Bilirubin AST ALT Alkaline Phosphatase Total Protein Albumin Quality VTE Prophylaxis VTE prophylaxis: mechanical ordered Hospitalist MIPS Advance Care Plan I have confirmed that the patient's Advanced Care Plan is present, code status is documented, or surrogate decision maker is listed in patient medical record.: Yes Medication Reconciliation I have utilized all available resources to obtain, update and review the patients current medications (includes all prescriptions, OTC, herbals, cannabis, and nutritional supplements).: Yes
[2024-09-26 21:07] LABS: Glucose Point of Care 175 mg/dl (65-105)
[2024-09-26] MEDS: VENLAFAXINE HCL XR 75 MG CAP.ER.24H PO (21:38)
--- NOTE | 2024-09-27 01:21 | PC.NURSE ---
Pt's HR was 50 at approx 2120 so I held her Nadolol 20mg medication. I called the provider auto parts salesperson Amanda Nails and she was made aware of the HR and said it was okay to not give the Nadolol this evening.
[2024-09-27 04:00] VITALS: BP 126/64; PULSE 53; RESP 16; TEMP 36.8; O2SAT 96
[2024-09-27] MEDS: LEVOTHYROXINE SODIUM 75 MCG TABLET PO (05:51)
[2024-09-27] MEDS: LEVOTHYROXINE SODIUM 100 MCG TABLET PO (05:51)
[2024-09-27 07:10] LABS: Alanine Aminotransferase 20 U/L (6-35); Albumin Level 3.1 g/dL (3.5-5.1); Alkaline Phosphatase 97 U/L (38-126); Aspartate Amino Transferase 41 U/L (14-36); Bilirubin,Total 2.1 mg/dL (0.2-1.3)
[2024-09-27 08:00] VITALS: BP 115/72; PULSE 53; RESP 16; TEMP 36.9; O2SAT 97
[2024-09-27 08:03] LABS: Glucose Point of Care 124 mg/dl (65-105)
--- NOTE | 2024-09-27 08:32 | P.PNIM_ITS ---
Progress Note: A&P Assessment and Plan (1) Pleural effusion, right: Code(s): J90 - Pleural effusion, not elsewhere classified Status: Acute Assessment and Plan: Status post Thoracentesis 09/24. Fluid for cytology nondiagnostic. Concern for malignant effusion. Pulmonary consulted 09/[address] guided biopsy after discussion with radiology, path pendin Oncology consult pending. --follow up path --Oncology recs vs outpatient follow up (2) Situational anxiety: Code(s): F41.8 - Other specified anxiety disorders Status: Acute Assessment and Plan: Anxiety related to new diagnosis * Xanax 0.5 mg TID prn (3) Mass of upper lobe of right lung: Code(s): R91.8 - Other nonspecific abnormal finding of lung field Status: Acute Assessment and Plan: * See #1 * Suspect Bronchogenic carcinoma (4) Cirrhosis of liver: Code(s): K74.60 - Unspecified cirrhosis of liver Status: Chronic Assessment and Plan: * Noted elevated Bilirubin. * Trend labs * Likely start low doses of lasix and spironolactone in am (5) Hypothyroidism: Code(s): E03.9 - Hypothyroidism, unspecified Status: Chronic Assessment and Plan: * Continue home meds (6) Obstructive sleep apnea syndrome: Code(s): G47.33 - Obstructive sleep apnea (adult) (pediatric) Status: Chronic Assessment and Plan: * Holding BiPap for 5 days post biopsy (7) Thrombocytopenia: Code(s): D69.6 - Thrombocytopenia, unspecified Status: Chronic Assessment and Plan: Follows with Dr. Jamison outpatient chronic thrombocytopenia. 67-81 during admission * Monitor for s/s of bleeding * Continue to follow (8) Type 2 diabetes mellitus: Code(s): E11.9 - Type 2 diabetes mellitus without complications Status: Chronic Assessment and Plan: * Continue SSI for coverage * Glycemic protocol. Time Spent With Patient Time: 65 minutes Subjective Date/time seen: 09/27/24 08:32 Interval history: About the same today. Not walking a lot and shortness of breath about the same Had a CT guided biopsy of RUL mass yesterday LFT's elevated Oncology consult pending Holding bipap for 5 days post biopsy Review of Systems Review of Systems: 12 systems were reviewed and are negativ e except for as per HPI. All systems reviewed & are unremarkable except as noted in HPI and below Exam Narrative: General: Well-developed, nontoxic-appearing female in the semi-Wall position in bed. HEENT: PERRL, EOMI. Sclera anicteric. Oral mucosa moist. Neck: Supple. Exam limited due to neck circumference. No obvious lymphadenopathy. Respiratory: Respirations are nonlabored and she is speaking in full sentences. Decreased breath sounds in bases bilaterally, more on the left side Cardiovascular: Regular rate and rhythm with S1-S2. Gastrointestinal: Abdomen is soft, obese, nontender, and nondistended with positive bowel sounds. Skin: Warm and dry. Extremities: No cyanosis, clubbing, or edema. Radial and pedal pulses intact. Neurological: Alert. Cranial nerves 2-12 are grossly intact. No gross focal deficits to casual conversation. Psychiatric: Calm, appropriate Objective Data Vital Signs Vital Signs: Vital Signs - 24 hr 09/26/24 11:00 09/26/24 15:02 09/26/24 15:17 Temperature 97.6 F 97.8 F Pulse Rate 50 L 55 L Respiratory Rate 20 20 Blood Pressure 137/69 135/60 Pulse Oximetry 94 100 100 Oxygen Delivery Room Air 09/26/24 15:32 09/26/24 15:47 09/26/24 16:02 Temperature 97.8 F 97.8 F 97.6 F Pulse Rate 55 L 54 L 50 L Respiratory Rate 20 18 18 Blood Pressure 135/60 135/60 135/60 Pulse Oximetry 100 100 100 Oxygen Delivery 09/26/24 16:32 09/26/24 20:00 09/26/24 22:17 Temperature 97.6 F 97.6 F Pulse Rate 50 L 54 L 50 L Respiratory Rate 18 16 Blood Pressure 135/60 128/60 Pulse Oximetry 100 95 Oxygen Delivery 09/26/24 23:11 09/27/24 04:00 Temperature 98.1 F 98.2 F Pulse Rate 52 L 53 L Respiratory Rate 16 16 Blood Pressure 124/62 126/64 Pulse Oximetry 95 96 Oxygen Delivery Intake/Output Intake/Output: Intake & Output 09/24/24 09/25/24 09/26/24 09/27/24 23:59 23:59 23:59 23:59 Intake Total 1770 1270 920 550 Balance 1770 1270 920 550 Meds/Results Medications: Active Medications Generic Name Dose Route Start Last Admin Trade Name Freq PRN Reason Stop Dose Admin Acetaminophen 650 mg 09/23/24 19:22 Acetaminophen 325 Mg Tablet PO Q6H PRN Mild Pain (1-3) or Fever Alprazolam 0.5 mg 09/25/24 11:08 Alprazolam (*Crx) 0.5 Mg Tablet PO TID PRN Anxiety Calcium Carbonate 500 mg 09/24/24 12:00 09/26/24 12:05 Calcium Carbonate (Oscal) 500 Mg Tablet PO 500 mg DAILY@1200 CAROL Administration Dextrose 12.5 gm 09/23/24 19:22 Dextrose 50% 25 Gm/50 Ml Syringe IV PUSH PRN PRN Hypoglycemia Protocol Gabapentin 300 mg 09/24/24 09:00 09/26/24 08:08 Gabapentin 300 Mg Capsule PO 300 mg DAILY CAROL Administration Glucagon 1 mg 09/23/24 19:22 Glucagon For Inj 1 Mg Vial IM PRN PRN Hypoglycemia Protocol Glucose 15 gm 09/23/24 19:22 Glucose Oral Gel 15 Gm Of Glucse In 37.5 Gm Tube PO PRN PRN Hypoglycemia Protocol Hydrochlorothiazide 12.5 mg 09/24/24 09:00 09/26/24 08:08 Hydrochlorothiazide 12.5 Mg Capsule PO 12.5 mg QAM CAROL Administration Dextrose 1,000 mls @ 100 mls/hr 09/23/24 19:22 Dextrose 5% 1,000 Ml IVPB PRN PRN Hypoglycemia Protocol Insulin Aspart 2 - 5 units 09/24/24 08:00 09/26/24 17:59 Insulin Aspart (*Bkc) 100 Units/Ml SUB-Q Not Given TIDWM [facility] Protocol Insulin Aspart 1 - 2 units 09/23/24 21:00 09/26/24 21:38 Insulin Aspart (*Bkc) 100 Units/Ml SUB-Q Not Given HS [facility] Protocol Levothyroxine Sodium 75 mcg 09/24/24 06:30 09/27/24 05:51 Levothyroxine Sodium 75 Mcg Tablet PO 75 mcg DAILY@0630 CAROL Administration Levothyroxine Sodium 100 mcg 09/24/24 06:30 09/27/24 05:51 Levothyroxine Sodium 100 Mcg Tablet PO 100 mcg DAILY@0630 CAROL Administration Lisinopril 10 mg 09/24/24 09:00 09/26/24 08:08 Lisinopril 10 Mg Tablet PO 10 mg QAM CAROL Administration Loratadine 10 mg 09/24/24 09:00 09/26/24 08:08 Loratadine 10 Mg Tablet PO 10 mg QAM CAROL Administration Nadolol 20 mg 09/23/24 22:25 09/26/24 22:17 Nadolol 20 Mg Tablet PO Not Given HS [facility] Ondansetron HCl 4 mg 09/23/24 19:22 Ondansetron Inj 4 Mg/2 Ml Vial IV PUSH Q6H PRN Nausea And Vomiting Oxycodone HCl 2.5 mg 09/26/24 18:51 Oxycodone Hcl (*Crx) 2.5 Mg Tab Ir PO Q4H PRN Pain Rated 4-6 Oxycodone HCl 5 mg 09/26/24 18:51 Oxycodone Hcl (*Crx) 5 Mg Tab Ir PO Q4H PRN Pain Rated 7-10 Venlafaxine HCl 75 mg 09/23/24 22:25 09/26/24 21:38 Venlafaxine Hcl Xr 75 Mg Cap.Er.24h PO 75 mg HS [facility] Administration Vitamin D 2,000 units 09/24/24 09:00 09/26/24 08:08 Cholecalciferol 1,000 Units Tablet PO 2,000 units DAILY CAROL Administration Radiology Results: ITS Impressions Chest CTA 09/23/24 16:37 IMPRESSION: 1. 4.1 x 3.3 cm mass in right lung upper lobe, consistent with primary bro nchogenic carcinoma. 2. Large right pleural effusion with leftward shift of the mediastinum. Thoracentesis is recommended. 3. Mediastinal lymphadenopathy suspicious for metastatic disease. 4. Cirrhosis of the liver with portal venous hypertension. 5. Ascites. 6. No pulmonary embolus. Thoracentesis Ultrasound 09/24/24 09:01 IMPRESSION: 1. Successful ultrasound-guided thoracentesis yielding 1000 mL of yellowish fluid. Lung Biopsy CT 09/26/24 15:58 IMPRESSION: 1. Successful CT-guided biopsy of a 3.8 cm right upper lobe mass which is concerning for primary bronchogenic carcinoma. 2. Large right pleural effusion. Chest X-Ray 09/26/24 18:18 IMPRESSION: 1. 4 cm mass in right lung upper lobe suspicious for primary bronchogenic carcinoma. 2. Stable small right pleural effusion. 3. Stable airspace opacities in right mid and lower lung zones, likely atelectasis. Labs Labs: Laboratory Results - last 24 hr 09/26/24 09/26/24 09/26/24 06:32 08:11 12:00 WBC 2.7 L RBC 3.94 L Hgb 12.5 Hct 36.7 L MCV 93.1 MCH 31.7 MCHC 34.1 RDW 14.2 Plt Count 75 L MPV 10.3 Immature Gran % (Auto) 0.8 H Neut % (Auto) 49.1 Lymph % (Auto) 29.3 [place] % (Auto) 16.2 H Eos % (Auto) 3.8 Baso % (Auto) 0.8 Lymph # (Auto) 0.78 L [place] # (Auto) 0.4 Eos # (Auto) 0.1 Baso # (Auto) 0.0 Abs Immat Gran (auto) 0.02 Absolute Neuts (auto) 1.3 Absolute Nucleated RBC 0.000 Nucleated RBC % 0.0 Platelet Estimate Decreased % Immature Plt Fraction 4.6 Anisocytosis 1+ Microcytosis 1+ Ovalocytes 1+ Schistocytes None seen POC Capillary Glucose 133 H 104 Total Bilirubin Direct Bilirubin AST ALT Alkaline Phosphatase Total Protein Albumin 09/26/24 09/26/24 09/27/24 16:51 19:32 06:20 WBC RBC Hgb Hct MCV MCH MCHC RDW Plt Count MPV Immature Gran % (Auto) Neut % (Auto) Lymph % (Auto) [place] % (Auto) Eos % (Auto) Baso % (Auto) Lymph # (Auto) [place] # (Auto) Eos # (Auto) Baso # (Auto) Abs Immat Gran (auto) Absolute Neuts (auto) Absolute Nucleated RBC Nucleated RBC % Platelet Estimate % Immature Plt Fraction Anisocytosis Microcytosis Ovalocytes Schistocytes POC Capillary Glucose 93 175 H Total Bilirubin 2.1 H Direct Bilirubin 0.0 AST 41 H ALT 20 Alkaline Phosphatase 97 Total Protein 6.0 L Albumin 3.1 L 09/27/24 07:55 WBC RBC Hgb Hct MCV MCH MCHC RDW Plt Count MPV Immature Gran % (Auto) Neut % (Auto) Lymph % (Auto) [place] % (Auto) Eos % (Auto) Baso % (Auto) Lymph # (Auto) [place] # (Auto) Eos # (Auto) Baso # (Auto) Abs Immat Gran (auto) Absolute Neuts (auto) Absolute Nucleated RBC Nucleated RBC % Platelet Estimate % Immature Plt Fraction Anisocytosis Microcytosis Ovalocytes Schistocytes POC Capillary Glucose 124 H Total Bilirubin Direct Bilirubin AST ALT Alkaline Phosphatase Total Protein Albumin Quality VTE Prophylaxis VTE prophylaxis: mechanical ordered Hospitalist MIPS Advance Care Plan I have confirmed that the patient's Advanced Care Plan is present, code status is documented, or surrogate decision maker is listed in patient medical record.: Yes Medication Reconciliation I have utilized all available resources to obtain, update and review the patients current medications (includes all prescriptions, OTC, herbals, cannabis, and nutritional supplements).: Yes
[2024-09-27] MEDS: GABAPENTIN 300 MG CAPSULE PO (09:29)
[2024-09-27] MEDS: LORATADINE 10 MG TABLET PO (09:29)
[2024-09-27] MEDS: CHOLECALCIFEROL 1,000 UNITS TABLET 2000 UNITS PO (09:29)
[2024-09-27] MEDS: lisinopriL 10 MG TABLET PO (09:29)
[2024-09-27] MEDS: hydroCHLOROthiazide 12.5 MG CAPSULE PO (09:29)
[2024-09-27 12:00] VITALS: BP 124/60; PULSE 54; RESP 16; TEMP 36.4; O2SAT 97
[2024-09-27 12:05] LABS: Glucose Point of Care 117 mg/dl (65-105)
[2024-09-27] MEDS: CALCIUM CARBONATE (OSCAL) 500 MG TABLET PO (12:31)
[2024-10-01 16:23] LABS: Glucose Pleural Fluid 164 mg/dL
[2024-10-03 10:32] LABS: Neutrophils Pleural Fluid 8 % (0-25); RBC Pleural Fluid < 2000 /uL (0-10000)
[2024-10-15 18:03] LABS: Albumin Pleural Fluid 0.7 g/dL; Amylase, Pleural Fluid 12 U/L; LDH Pleural Fluid 29 U/L; Total Protein Pleural Fluid <3.0 g/dL
--- NOTE | 2024-10-24 07:19 | P.DS_ITS ---
DS: Admitting Diagnosis Discharge Date 09/27/24 Admitting Diagnosis Shortness of breath DS: Discharge Diagnosis Discharge Diagnosis (1) Mass of upper lobe of right lung: Code(s): R91.8 - Other nonspecific abnormal finding of lung field Status: Acute (2) Pleural effusion: Code(s): J90 - Pleural effusion, not elsewhere classified Status: Acute (3) Dyspnea: Code(s): R06.00 - Dyspnea, unspecified Status: Acute (4) Thrombocytopenia: Code(s): D69.6 - Thrombocytopenia, unspecified Status: Chronic DS: Summary Hospital Course Reason for hospitalization: Copied from [facility] 09/23/24 17:25 Chief Complaint: Shortness of breath. 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 The patient provides the following history. She has been feeling short of breath with exertion for awhile now but it has become quite noticeable over the past 2 weeks. Last night she had difficulties sleeping because she was increasingly short of breath when lying flat and she felt as though she could not get in a good deep breath. Her boss had pneumonia recently and she called her doctor's office to make an appointment and she was instead referred to the ED. She has an occasional, nonproductive cough. She is otherwise feeling okay and denies weight loss, fever, chills, sinus congestion, sore throat, chest pain, pleuritic pain, palpitations, hemoptysis, nausea, vomiting, diarrhea, edema, and calf pain. In the ED: Vital signs were stable on arrival. Labs were significant for WBC count 3.5, hemoglobin 14.0, platelets 81, INR 1.2, lactic acid 2.2, sodium 135, potassium 3.7, BUN, creatinine 0.60, glucose 148. Chest x-ray showed a large right-sided pleural effusion as subsequent chest CT showed a 4.1 x 3.3 cm mass in the right upper lobe consistent with primary bronchogenic carcinoma and the large right pleural effusion with leftward shift of the mediastinum, mediastinal lymphadenopathy suspicious for metastatic disease, cirrhosis of the liver, and ascites. She is being admitted for diagnostic thoracentesis. She is a lifelong nonsmoker. She has a strong family history of cancer including a sister with colorectal and thyroid cancer, mother with lung cancer at an advanced age, and a niece who was recently diagnosed with cancer. Hospital Course: Pleural effusion, right: Status post Thoracentesis 09/24. Fluid for cytology nondiagnostic. Concern for malignant effusion. Pulmonary consulted 09/[address] guided biopsy after discussion with radiology, path pending at discharge --Oncology not available during admission, plan to follow up outpatient after biopsy results. --follow up path Anxiety related to new diagnosis * Xanax 0.5 mg TID prn, short course during admission for procedures, defer further management to PCP Mass of upper lobe of right lung: * See #1 * Suspect Bronchogenic carcinoma Cirrhosis of liver: * Noted elevated Bilirubin. * Trend labs * Likely start low doses of lasix and spironolactone in am Hypothyroidism: * Continue synthoid Obstructive sleep apnea (adult) (pediatric) * Holding BiPap for 5 days post biopsy (7) Thrombocytopenia: Thrombocytopenia Follows with Dr. Jamison outpatient chronic thrombocytopenia. 67-81 during admission * Monitor for s/s of bleeding Type 2 diabetes mellitus without complications * Continue SSI for coverage * Glycemic protocol. Status at Discharge Cognitive/behavioral status at discharge: A&Ox4 Time Spent with Patient Time attestation: Total time spent providing and/or coordinating discharge services: 58 minutes Exam Narrative: General: Well-developed, nontoxic-appearing female in the semi-Wall position in bed. HEENT: PERRL, EOMI. Sclera anicteric. Oral mucosa moist. Neck: Supple. Exam limited due to neck circumference. No obvious lymphadenopathy. Respiratory: Respirations are nonlabored and she is speaking in full sentences. Decreased breath sounds in bases bilaterally, more on the left side Cardiovascular: Regular rate and rhythm with S1-S2. Gastrointestinal: Abdomen is soft, obese, nontender, and nondistended with positive bowel sounds. Skin: Warm and dry. Extremities: No cyanosis, clubbing, or edema. Radial and pedal pulses intact. Neurological: Alert. Cranial nerves 2-12 are grossly intact. No gross focal deficits to casual conversation. Psychiatric: Calm, appropriate DS: Data Data Completed and Pending Completed studies during hospitalization: Pending at discharge 09/23/24 17:07 Cytology [PTH] Routine 09/26/24 14:07 Cytology [PTH] Routine Labs on day of discharge: Preliminary micro results at discharge 09/23/24 18:25 Acid Fast Bacilli Culture - Preliminary Pleural Fluid Discharge Plan Discharge Attending physician on discharge: Cata Carr Consulting providers: Juan Jamison; Adriana Bernal; Charla Gonzalez; [place]; Tirso Mendes V.; Saulo Celeste; Parker Zaman; Eleuterio Wilson; Juan Carlos Malin Discharging Clinician: Cata Carr Anticipated Discharge Date/Time: 09/27/24 13:58 Patient Disposition: Home Health Service Activity: february shower Diet: regular Discharge Instructions: Stopped lisinopril/hctz. Starting furosmide and spironolactone for fluid removal. Don't start until Sunday. An early sign of dehdyration is dizziness when standing. If you notice mild dizziness, drink water and hold furosemide/spironolactone. Talk to your PCP about taking half of the dose (half tabs instead of the full tab). You should have blood work in 1-2 weeks to check your electrolytes with the diuretics. You can have them done here or after you see your PCP or Dr. Jamison Check your blood pressure daily, goal is over 90 and feeling well. No bipap for 5 days after lung biopsy. You can restart on 10/[address] Jamison with oncology. He will decide what imaging you need next Results should be back from the biopsy next week. Patient Instructions: Antibiotic Form, Pain Management (DC) Patient Language: Mauritanian Stand Alone Forms: General Discharge Information Follow-up/Referrals: Juan Jamison MD [Physician] - (New lung mass) [facility],MD Karissa [Primary Care Provider] - Discharge Medications: New furosemide 20 mg tablet 20 mg PO DAILY Qty: 30 1RF spironolactone 25 mg tablet 25 mg PO DAILY Qty: 30 1RF Continued levothyroxine [Synthroid] 150 mcg tablet 150 mcg PO DAILY cholecalciferol (vitamin D3) 50 mcg (2,000 unit) capsule 50 mcg PO DAILY calcium carbonate [Calcium 600] 600 mg calcium (1,500 mg) tablet 600 mg PO DAILY nadolol 20 mg tablet 20 mg PO HS levothyroxine [Unithroid] 175 mcg tablet 175 mcg PO DAILY cetirizine 10 mg tablet 10 mg PO DAILY venlafaxine 75 mg capsule,extended release 24hr 75 mg PO HS diclofenac sodium 50 mg tablet,delayed release (DR/EC) 50 mg PO BID PRN (Reason: joint pain) gabapentin 300 mg capsule 300 mg PO DAILY Discontinued lisinopril-hydrochlorothiazide 10-12.5 mg tablet 1 tablet PO DAILY Qty: 90 3RF Other Ambulatory Orders: Basic Metabolic Panel (Routine) Timeframe: 1 Week Location: Determined by Patient Ordered By: Cata Carr Date of admission: 09/23/24 17:22 Primary Care Provider: Willy,Karissa Admitting Provider: Tam Leon Attending physician on admission: Cata Carr Condition: Stable Quality VTE Prophylaxis VTE prophylaxis: mechanical ordered
== END 2024-09-27 15:20 | disposition home health service (06) | DRG 841 ==
LOC: ANHED 17:22 → ANH3MEDSUR 19:11
PROVIDERS: Emergency Medicine; Nurse Practitioner Adult Health; Physician Assistant; Registered Nurse; Admitting Provider Internal Medicine; Emergency Provider Emergency Medicine; PCP Internal Medicine; Visit Provider Nurse Practitioner Acute Care
DX: C85.19 Unspecified B-cell lymphoma, extranodal and solid organ sites (principal); J90 Pleural effusion, not elsewhere classified; I10 Essential (primary) hypertension; E03.9 Hypothyroidism, unspecified; E11.9 Type 2 diabetes mellitus without complications; K74.60 Unspecified cirrhosis of liver; K75.81 Nonalcoholic steatohepatitis (NASH); G47.33 Obstructive sleep apnea (adult) (pediatric)
CPT/HCPCS: 32408; 32555; 36415; 71045; 71046; 71275; 74177; 80053; 80076; 81001; 82040; 82042; 82150; 82247; 82465; 82945; 82947; 82948; 83605; 83615; 83735; 83880; 83986; 84155; 84157; 84311; 84443; 84478; 84484; 85025; 85055; 85610; 85730; 87015; 87070; 87075; 87086; 87102; 87116; 87205; 87206; 88108; 88305; 88342; 89051; 93005; 99285; A9270; J3360; Q9967